=== PATIENT | female | born 1965 | race Hispanic/Latino ===

== ENCOUNTER 2020-10-18 08:24 | Inpatient (IN) | payer MEDICARE ==
[2020-10-18] MEDS: OMEGA-3 FATTY ACIDS/FISH OIL 1 GRAM CAP PO SCH ×2 (21:04→21:25)
[2020-10-18] MEDS: traZODone 50 MG TAB PO SCH ×2 (21:04→21:25)
[2020-10-18] MEDS ORDERED: MELATONIN 5 MG TAB PO PRN (22:00)
[2020-10-19 00:06] LABS: Basophils # (Auto) 0.1 K/mm3 (0.0-0.1); Eosinophils # (Auto) 0.3 K/mm3 (0.0-0.4); Hematocrit 41.5 % (30.3-42.9); Hemoglobin 14.3 gm/dl (10.1-14.3); Lymphocytes # (Auto) 3.4 K/mm3 (1.2-5.4); Lymphocytes % (Auto) 38.6 % (13.4-35.0); Mean Corpuscular HGB Conc 34 % (30-34); Mean Corpuscular Volume 90 fl (79-97); Monocytes # (Auto) 0.8 K/mm3 (0.0-0.8); Monocytes % (Auto) 8.7 % (0.0-7.3); Platelet Count 269 K/mm3 (140-440); Red Blood Count 4.61 M/mm3 (3.65-5.03)
[2020-10-19 01:16] LABS: Alanine Aminotransferase 9 units/L (7-56); Albumin 3.8 g/dL (3.9-5); BUN/Creatinine Ratio 22; Blood Urea Nitrogen 13 mg/dL (7-17); Calcium 9.1 mg/dL (8.4-10.2); HDL Cholesterol 40 mg/dL (40-59); Hemolysis Index 9; LDL Cholesterol,Direct 91 mg/dL (50-130)
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
[2020-10-19] MEDS: OMEGA-3 FATTY ACIDS/FISH OIL 1 GRAM CAP PO SCH ×3 (09:08→21:03)
[2020-10-19] MEDS: NICOTINE 14 MG/24 HR PATCH TD SCH (09:08)
[2020-10-19] MEDS: LORazepam 2 MG/ML VIAL IM SCH ×3 (10:17→17:32)
--- NOTE | 2020-10-19 11:30 | Consultation ---
History of Present Illness - Reason for Consult Consult date: 10/19/20 Medical management Requesting physician: MELLISSA MARTIN - History of Present Illness 54-year-old female with medical history significant for bipolar disorder, schizophrenia was admitted yesterday to [facility]. I have seen and evaluated the patient, patient was mute. I have asked questions but she does not answer. She was alert and looking at me. I could not get any history from her. Review of system could not be obtained because patient is mute. Past History Past Medical History: other (Could not obtain because the patient is mute) Past Surgical History: Other (Could not obtain because the patient is mute) Social history: other (Could not obtain because the patient is mute) Family history: other (Could not obtain because the patient is mute) Medications and Allergies Allergies Allergy/AdvReac Type Severity Reaction Status Date / Time Penicillins Allergy Unknown Verified 10/18/20 13:53 Home Medications Medication Instructions Recorded Confirmed Last Taken Type ALPRAZolam [Xanax TAB] 1 mg PO TID PRN 10/18/20 10/18/20 Unknown History Albuterol Sulfate [Proair 90 mcg IH Q4HR 10/18/20 10/18/20 Unknown History Digihaler] Cyclobenzaprine [Flexeril] 10 mg PO TID PRN 10/18/20 10/18/20 Unknown History FLUoxetine [PROzac] 20 mg PO QDAY 10/18/20 10/18/20 Unknown History Furosemide [Lasix TAB] 80 mg PO DAILY 10/18/20 10/18/20 Unknown History Ketorolac [Toradol] 10 mg PO Q6HR PRN 10/18/20 10/18/20 Unknown History Naproxen 500 mg PO BID 10/18/20 10/18/20 Unknown History Nicotine [Habitrol] 14 mg TRANSDERMA DAILY 10/18/20 10/18/20 Unknown History Omeprazole 40 mg PO DAILY 10/18/20 10/18/20 Unknown History Potassium Chloride [K-Dur] 10 meq PO QDAY 10/18/20 10/18/20 Unknown History Sucralfate [Carafate] 1 gm PO ACHS 10/18/20 10/18/20 Unknown History Zolpidem [Ambien] 10 mg PO HS 10/18/20 10/18/20 Unknown History Active Meds: Active Medications Fish Oil ([place]-3 Fatty Acids/Fish Oil 1 Gram Cap) 2,000 mg PO BID [facility] Last Admin: 10/19/20 09:09 Dose: Not Given Documented by: Lorazepam (Lorazepam 2 Mg/Ml Vial) 2 mg IM Q4HR [facility] Stop: 10/19/20 18:01 Last Admin: 10/19/20 10:17 Dose: 2 mg Documented by: Melatonin (Melatonin 5 Mg Tab) 5 mg PO QHS PRN PRN Reason: Sleep Nicotine (Nicotine 14 Mg/24 Hr Patch) 14 mg TD QDAY [facility] Last Admin: 10/19/20 09:08 Dose: Not Given Documented by: Trazodone HCl (Trazodone 50 Mg Tab) 50 mg PO QHS [facility] Last Admin: 10/18/20 21:25 Dose: Not Given Documented by: Review of Systems ROS unobtainable: due to mental status (patient is mute) Exam - Physical Exam Narrative exam: Not in cardiopulmonary distress. The patient appeared well nourished and normally developed. Vital signs as documented. Head exam is unremarkable. No scleral icterus . Neck is without jugular venous distension, thyromegaly, or carotid bruits. Lungs are clear to auscultation. Cardiac exam reveals regular rate and Rhythm. Abdominal exam reveals normal bowel sounds, nontender, no organomegaly. Extremities are nonedematous and both femoral and pedal pulses are normal. GUEST SERVICES ATTENDANT: Patient was alert but mute - Constitutional Vitals: Temp Pulse Resp BP Pulse Ox 98.4 F 111 H 16 125/81 98 10/19/20 07:19 10/19/20 07:19 10/19/20 07:19 10/19/20 07:19 10/19/20 07:19 Results - Labs CBC & Chem 7: 10/18/20 23:34 10/18/20 23:34 Labs: Abnormal lab results 10/18/20 10/18/20 Range/Units 23:34 23:34 RDW 13.0 L (13.2-15.2) % Lymph % (Auto) 38.6 H (13.4-35.0) % [place] % (Auto) 8.7 H (0.0-7.3) % Glucose 130 H (65-100) mg/dL Albumin 3.8 L (3.9-5) g/dL Assessment and Plan Patient admitted for bipolar disorder, schizophrenia Patient is mute I could not get any history -Her vital signs and labs are normal -Nothing to add from hospitalist point of view Thank you for the consult Please give me a call if there is any questions.
[2020-10-19] MEDS: traZODone 50 MG TAB PO SCH (21:03)
--- NOTE | 2020-10-20 08:42 | Progress Note ---
Subjective Date of service: 10/20/20 Principal diagnosis: (1) Schizophrenia with prominent negative symptoms Subjective Comment: Per Psych Nurse: This evening the patient is quiet. She answers when spoken to. he presents as mildly paranoid. She has been encouraged to take a shower but shows no interest in grooming. She ate 100% snack and asks for and received more later. She was compliant in taking Trazodone but refused fish oil stating it makes her sick. Patient voices wanting to go home. She states she lives with her boyfriend. Will continue to monitor patient for safety. Psych Progress Patient seen in room, alert to stimuli, states good morning but muted to other quuestions. REVIEW OF SYSTEMS ROS cannot be reliably obtained from the patient due to her negative schizophrenic symptoms MENTAL STATUS EXAMINATION General Appearance and Behavior: Age appropriate, good hygiene, wearing appropriate clothes, good eye contact, uncooperative with questioning. Cooperation: Withdrawn Psychomotor Behavior: unremarkable and within normal limits Mood: Neutral Affect and affective range: Flat Thought Process:N/A Thought Content: N/A Speech: Normal volume, Regular rate and rhythm Intellectual Functioning: N/A Suicidal Ideation: N/A l Homicidal Ideation: N/A Impulse Control: Impaired Insight and Judgment: Impaired Memory: impaired Attention: Normal, Orientation: Alert, Assessment and Plan - Psychiatric problem (1) Schizophrenia with prominent negative symptoms Current Visit: Yes Status: Acute f20.89 Treatment Plan Will start Geodon PO. Ativan BID. Patient admitted for inpatient psychiatric evaluation, medication adjustment and close monitoring The patient's behavior, mood, sleep and appetite will be closely monitored. Patient enrolled in individual and group therapeutic sessions and encouraged to attend. Patient provided with a safe and structured environment. Patient's physical health needs will be addressed by the Hospitalist. Hospitalist Consulted Labs including CBC, CMP, Lipid profile and Hemoglobin A1C levels ordered for baseline reference Social Assessment will be completed and the Computational Scientist will work with patient and family to ensure a suitable and safe disposition Medication adjustment will be made as clinically indicated Usual Wellness Adventism/Preservation: - Start Trazodone 50 mg po QHS & 50 mg po QHS PRN between 10 PM & 2 AM for insomnia - Start Melatonin 5 mg po QHS to promote circadian rhythm - Start [place]-3 for brain health, reduce impulsivity, and as adjunctive treatment for mood disorder, continue upon discharge given overall benefits. - Start B1 prophylaxis with 200 mg po for 5 days The patient agreed on the treatment plan, understood the risk, benefit, alternative treatment, potential consequence of no treatment, and gave informed consent. Initial Certification Inpatient psych services: I certify that the inpatient psychiatric services are required for treatment that could reasonably be expected to improve the patient's condition. Estimated days: 7 Post hospital care: primary care provider, psychiatric provider Assessment and Plan - Patient Problems (1) Schizophrenia with prominent negative symptoms Current Visit: Yes Status: Acute Medications and Allergies Allergies Allergy/AdvReac Type Severity Reaction Status Date / Time Penicillins Allergy Unknown Verified 10/18/20 13:53 sulfamethoxazole Allergy Unknown Verified 10/19/20 22:47 trimethoprim Allergy Unknown Verified 10/19/20 22:49 Home Medications Medication Instructions Recorded Confirmed Last Taken Type ALPRAZolam [Xanax TAB] 1 mg PO TID PRN 10/18/20 10/18/20 Unknown History Albuterol Sulfate [Proair 90 mcg IH Q4HR 10/18/20 10/18/20 Unknown History Digihaler] Cyclobenzaprine [Flexeril] 10 mg PO TID PRN 10/18/20 10/18/20 Unknown History FLUoxetine [PROzac] 20 mg PO QDAY 10/18/20 10/18/20 Unknown History Furosemide [Lasix TAB] 80 mg PO DAILY 10/18/20 10/18/20 Unknown History Ketorolac [Toradol] 10 mg PO Q6HR PRN 10/18/20 10/18/20 Unknown History Naproxen 500 mg PO BID 10/18/20 10/18/20 Unknown History Nicotine [Habitrol] 14 mg TRANSDERMA DAILY 10/18/20 10/18/20 Unknown History Omeprazole 40 mg PO DAILY 10/18/20 10/18/20 Unknown History Potassium Chloride [K-Dur] 10 meq PO QDAY 10/18/20 10/18/20 Unknown History Sucralfate [Carafate] 1 gm PO ACHS 10/18/20 10/18/20 Unknown History Zolpidem [Ambien] 10 mg PO HS 10/18/20 10/18/20 Unknown History Active Meds: Active Medications Fish Oil ([place]-3 Fatty Acids/Fish Oil 1 Gram Cap) 2,000 mg PO BID [facility] Last Admin: 10/19/20 21:03 Dose: Not Given Documented by: Fluoxetine HCl (Fluoxetine 20 Mg Cap) 20 mg PO QDAY [facility] Melatonin (Melatonin 5 Mg Tab) 5 mg PO QHS PRN PRN Reason: Sleep Nicotine (Nicotine 14 Mg/24 Hr Patch) 14 mg TD QDAY [facility] Last Admin: 10/19/20 09:08 Dose: Not Given Documented by: Trazodone HCl (Trazodone 50 Mg Tab) 50 mg PO QHS [facility] Last Admin: 10/19/20 21:03 Dose: 50 mg Documented by: Results - Results Labs/Vitals: Laboratory Last Values WBC 8.7 K/mm3 (4.5-11.0) 10/18/20 23:34 RBC 4.61 M/mm3 (3.65-5.03) 10/18/20 23:34 Hgb 14.3 gm/dl (10.1-14.3) 10/18/20 23:34 Hct 41.5 % (30.3-42.9) 10/18/20 23:34 MCV 90 fl (79-97) 10/18/20 23:34 MCH 31 pg (28-32) 10/18/20 23:34 MCHC 34 % (30-34) 10/18/20 23:34 RDW 13.0 % (13.2-15.2) L 10/18/20 23:34 Plt Count 269 K/mm3 (140-440) 10/18/20 23:34 Lymph % (Auto) 38.6 % (13.4-35.0) H 10/18/20 23:34 [place] % (Auto) 8.7 % (0.0-7.3) H 10/18/20 23:34 Eos % (Auto) 3.0 % (0.0-4.3) 10/18/20 23:34 Baso % (Auto) 1.0 % (0.0-1.8) 10/18/20 23:34 Lymph # (Auto) 3.4 K/mm3 (1.2-5.4) 10/18/20 23:34 [place] # (Auto) 0.8 K/mm3 (0.0-0.8) 10/18/20 23:34 Eos # (Auto) 0.3 K/mm3 (0.0-0.4) 10/18/20 23:34 Baso # (Auto) 0.1 K/mm3 (0.0-0.1) 10/18/20 23:34 Seg Neutrophils % 48.7 % (40.0-70.0) 10/18/20 23:34 Seg Neutrophils # 4.2 K/mm3 (1.8-7.7) 10/18/20 23:34 Sodium 143 mmol/L (137-145) 10/18/20 23:34 Potassium 3.6 mmol/L (3.6-5.0) 10/18/20 23:34 Chloride 105.0 mmol/L (98-107) 10/18/20 23:34 Carbon Dioxide 27 mmol/L (22-30) 10/18/20 23:34 Anion Gap 15 mmol/L 10/18/20 23:34 BUN 13 mg/dL (7-17) 10/18/20 23:34 Creatinine 0.6 mg/dL (0.6-1.2) 10/18/20 23:34 Estimated GFR > 60 ml/min 10/18/20 23:34 BUN/Creatinine Ratio 22 % 10/18/20 23:34 Glucose 130 mg/dL (65-100) H 10/18/20 23:34 Hemoglobin A1c 6.0 % (4-6) 10/18/20 23:34 Calcium 9.1 mg/dL (8.4-10.2) 10/18/20 23:34 Total Bilirubin 0.20 mg/dL (0.1-1.2) 10/18/20 23:34 AST 10 units/L (5-40) 10/18/20 23:34 ALT 9 units/L (7-56) 10/18/20 23:34 Alkaline Phosphatase 93 units/L (35-129) 10/18/20 23:34 Total Protein 6.7 g/dL (6.3-8.2) 10/18/20 23:34 Albumin 3.8 g/dL (3.9-5) L 10/18/20 23:34 Albumin/Globulin Ratio 1.3 % 10/18/20 23:34 Triglycerides 103 mg/dL (2-149) 10/18/20 23:34 Cholesterol 140 mg/dL (50-199) 10/18/20 23:34 LDL Cholesterol Direct 91 mg/dL (50-130) 10/18/20 23:34 HDL Cholesterol 40 mg/dL (40-59) 10/18/20 23:34 Cholesterol/HDL Ratio 3.50 % 10/18/20 23:34 TSH 1.550 mlU/mL (0.270-4.200) 10/18/20 23:34 Last Vital Signs Temp 98.8 F 10/20/20 07:24 Pulse 104 H 10/20/20 07:24 Resp 16 10/20/20 07:24 BP 108/82 10/20/20 07:24 Pulse Ox 92 10/20/20 07:24
[2020-10-20] MEDS: NICOTINE 14 MG/24 HR PATCH TD SCH (09:17)
[2020-10-20] MEDS: FLUoxetine 20 MG CAP PO SCH (09:23)
[2020-10-20] MEDS: OMEGA-3 FATTY ACIDS/FISH OIL 1 GRAM CAP PO SCH ×3 (09:30→21:32)
[2020-10-20] MEDS: ZIPRASIDONE 20 MG CAP PO SCH ×3 (09:51→21:32)
[2020-10-20] MEDS: LORazepam 0.5 MG TAB PO SCH ×3 (09:51→21:31)
[2020-10-20] MEDS ORDERED: NICOTINE 14 MG/24 HR PATCH TD SCH (10:00)
[2020-10-20] MEDS: traZODone 50 MG TAB PO SCH ×2 (21:04→21:33)
--- NOTE | 2020-10-21 08:39 | Progress Note ---
Subjective Date of service: 10/21/20 Principal diagnosis: (1) Schizophrenia with prominent negative symptoms Subjective Comment: Per nurse note: Pt received in the activity room eating snack. She did not pay attention to the telegraphic typewriter repairer and would not respond to questions. Nsg. staff observing informed telegraphic typewriter repairer that pt rarely talk. As telegraphic typewriter repairer walking out of the day room, she started coming behind saying, "I talk, I talk." She endorsed taking her medication. Denies pain, SI or HI. I attempted to interview the patient, but I could not engage her. She was initially lying down and just staring at me with this blank stare as I spoke. She then got up and sat on side of the bed. The patient still did nothing but started at me. The patient appeared to not understand what I was saying. She just stares at me as I leave out the room. I later come back to speak with the patient after assessing another patient. She is still sitting on side of the bed. She stares at me as I'm speaking and does not respond. REVIEW OF SYSTEMS ROS cannot be reliably obtained from the patient due to her negative schizophrenic symptoms MENTAL STATUS EXAMINATION General Appearance and Behavior: Age appropriate, good hygiene, wearing appropriate clothes, good eye contact, uncooperative with questioning. Cooperation: Withdrawn Psychomotor Behavior: unremarkable and within normal limits Mood: Affect and affective range: Flat Thought Process:N/A Thought Content: N/A Speech: Normal volume, Regular rate and rhythm Intellectual Functioning: N/A Suicidal Ideation: N/A l Homicidal Ideation: N/A Impulse Control: Impaired Insight and Judgment: Impaired Memory: impaired Attention: Normal, Orientation: Alert, Assessment and Plan (1) Schizophrenia with prominent negative symptoms Current Visit: Yes Status: Acute f20.89 Treatment Plan Patient admitted for inpatient psychiatric evaluation, medication adjustment and close monitoring The patient's behavior, mood, sleep and appetite will be closely monitored. Patient enrolled in individual and group therapeutic sessions and encouraged to attend. Patient provided with a safe and structured environment. Patient's physical health needs will be addressed by the Hospitalist. Hospitalist Consulted Labs including CBC, CMP, Lipid profile and Hemoglobin A1C levels ordered for baseline reference Social Assessment will be completed and the Print Cutter will work with patient and family to ensure a suitable and safe disposition Medication adjustment will be made as clinically indicated Start Depakote DR 125mg po BID Usual Wellness Restorationism/Preservation: - Start Trazodone 50 mg po QHS & 50 mg po QHS PRN between 10 PM & 2 AM for insomnia - Start Melatonin 5 mg po QHS to promote circadian rhythm - Start [place]-3 for brain health, reduce impulsivity, and as adjunctive treatment for mood disorder, continue upon discharge given overall benefits. - Start B1 prophylaxis with 200 mg po for 5 days The patient agreed on the treatment plan, understood the risk, benefit, alternative treatment, potential consequence of no treatment, and gave informed consent. Estimated days: 5 Post hospital care: primary care provider, psychiatric provider Medications and Allergies Allergies Allergy/AdvReac Type Severity Reaction Status Date / Time Penicillins Allergy Unknown Verified 10/18/20 13:53 sulfamethoxazole Allergy Unknown Verified 10/19/20 22:47 trimethoprim Allergy Unknown Verified 10/19/20 22:49 Home Medications Medication Instructions Recorded Confirmed Last Taken Type ALPRAZolam [Xanax TAB] 1 mg PO TID PRN 10/18/20 10/18/20 Unknown History Albuterol Sulfate [Proair 90 mcg IH Q4HR 10/18/20 10/18/20 Unknown History Digihaler] Cyclobenzaprine [Flexeril] 10 mg PO TID PRN 10/18/20 10/18/20 Unknown History FLUoxetine [PROzac] 20 mg PO QDAY 10/18/20 10/18/20 Unknown History Furosemide [Lasix TAB] 80 mg PO DAILY 10/18/20 10/18/20 Unknown History Ketorolac [Toradol] 10 mg PO Q6HR PRN 10/18/20 10/18/20 Unknown History Naproxen 500 mg PO BID 10/18/20 10/18/20 Unknown History Nicotine [Habitrol] 14 mg TRANSDERMA DAILY 10/18/20 10/18/20 Unknown History Omeprazole 40 mg PO DAILY 10/18/20 10/18/20 Unknown History Potassium Chloride [K-Dur] 10 meq PO QDAY 10/18/20 10/18/20 Unknown History Sucralfate [Carafate] 1 gm PO ACHS 10/18/20 10/18/20 Unknown History Zolpidem [Ambien] 10 mg PO HS 10/18/20 10/18/20 Unknown History Active Meds: Active Medications Fish Oil ([place]-3 Fatty Acids/Fish Oil 1 Gram Cap) 2,000 mg PO BID [facility] Last Admin: 10/20/20 21:32 Dose: Not Given Documented by: Fluoxetine HCl (Fluoxetine 20 Mg Cap) 20 mg PO QDAY [facility] Last Admin: 10/20/20 09:23 Dose: 20 mg Documented by: Lorazepam (Lorazepam 0.5 Mg Tab) 0.5 mg PO BID [facility] Last Admin: 10/20/20 21:31 Dose: Not Given Documented by: Melatonin (Melatonin 5 Mg Tab) 5 mg PO QHS PRN PRN Reason: Sleep Nicotine (Nicotine 14 Mg/24 Hr Patch) 14 mg TD QDAY [facility] Last Admin: 10/20/20 09:17 Dose: 14 mg Documented by: Trazodone HCl (Trazodone 50 Mg Tab) 50 mg PO QHS [facility] Last Admin: 10/20/20 21:33 Dose: Not Given Documented by: Ziprasidone (Ziprasidone 20 Mg Cap) 20 mg PO BID [facility] Last Admin: 10/20/20 21:32 Dose: Not Given Documented by: Results - Results Labs/Vitals: Laboratory Last Values WBC 8.7 K/mm3 (4.5-11.0) 10/18/20 23:34 RBC 4.61 M/mm3 (3.65-5.03) 10/18/20 23:34 Hgb 14.3 gm/dl (10.1-14.3) 10/18/20 23:34 Hct 41.5 % (30.3-42.9) 10/18/20 23:34 MCV 90 fl (79-97) 10/18/20 23:34 MCH 31 pg (28-32) 10/18/20 23:34 MCHC 34 % (30-34) 10/18/20 23:34 RDW 13.0 % (13.2-15.2) L 10/18/20 23:34 Plt Count 269 K/mm3 (140-440) 10/18/20 23:34 Lymph % (Auto) 38.6 % (13.4-35.0) H 10/18/20 23:34 [place] % (Auto) 8.7 % (0.0-7.3) H 10/18/20 23:34 Eos % (Auto) 3.0 % (0.0-4.3) 10/18/20 23:34 Baso % (Auto) 1.0 % (0.0-1.8) 10/18/20 23:34 Lymph # (Auto) 3.4 K/mm3 (1.2-5.4) 10/18/20 23:34 [place] # (Auto) 0.8 K/mm3 (0.0-0.8) 10/18/20 23:34 Eos # (Auto) 0.3 K/mm3 (0.0-0.4) 10/18/20 23:34 Baso # (Auto) 0.1 K/mm3 (0.0-0.1) 10/18/20 23:34 Seg Neutrophils % 48.7 % (40.0-70.0) 10/18/20 23:34 Seg Neutrophils # 4.2 K/mm3 (1.8-7.7) 10/18/20 23:34 Sodium 143 mmol/L (137-145) 10/18/20 23:34 Potassium 3.6 mmol/L (3.6-5.0) 10/18/20 23:34 Chloride 105.0 mmol/L (98-107) 10/18/20 23:34 Carbon Dioxide 27 mmol/L (22-30) 10/18/20 23:34 Anion Gap 15 mmol/L 10/18/20 23:34 BUN 13 mg/dL (7-17) 10/18/20 23:34 Creatinine 0.6 mg/dL (0.6-1.2) 10/18/20 23:34 Estimated GFR > 60 ml/min 10/18/20 23:34 BUN/Creatinine Ratio 22 % 10/18/20 23:34 Glucose 130 mg/dL (65-100) H 10/18/20 23:34 Hemoglobin A1c 6.0 % (4-6) 10/18/20 23:34 Calcium 9.1 mg/dL (8.4-10.2) 10/18/20 23:34 Total Bilirubin 0.20 mg/dL (0.1-1.2) 10/18/20 23:34 AST 10 units/L (5-40) 10/18/20 23:34 ALT 9 units/L (7-56) 10/18/20 23:34 Alkaline Phosphatase 93 units/L (35-129) 10/18/20 23:34 Total Protein 6.7 g/dL (6.3-8.2) 10/18/20 23:34 Albumin 3.8 g/dL (3.9-5) L 10/18/20 23:34 Albumin/Globulin Ratio 1.3 % 10/18/20 23:34 Triglycerides 103 mg/dL (2-149) 10/18/20 23:34 Cholesterol 140 mg/dL (50-199) 10/18/20 23:34 LDL Cholesterol Direct 91 mg/dL (50-130) 10/18/20 23:34 HDL Cholesterol 40 mg/dL (40-59) 10/18/20 23:34 Cholesterol/HDL Ratio 3.50 % 10/18/20 23:34 TSH 1.550 mlU/mL (0.270-4.200) 10/18/20 23:34 Last Vital Signs Temp 98.0 F 10/21/20 08:31 Pulse 82 10/21/20 08:31 Resp 16 10/21/20 08:31 BP 95/56 10/21/20 08:31 Pulse Ox 95 10/21/20 08:31
[2020-10-21] MEDS: FLUoxetine 20 MG CAP PO SCH (09:05)
[2020-10-21] MEDS: LORazepam 0.5 MG TAB PO SCH ×2 (09:05→21:14)
[2020-10-21] MEDS: ZIPRASIDONE 20 MG CAP PO SCH ×2 (09:05→21:14)
[2020-10-21] MEDS: OMEGA-3 FATTY ACIDS/FISH OIL 1 GRAM CAP PO SCH ×2 (09:05→21:14)
[2020-10-21] MEDS: NICOTINE 14 MG/24 HR PATCH TD SCH (09:05)
[2020-10-21] MEDS: DIVALPROEX DR 125 MG TAB PO SCH ×2 (09:05→21:14)
[2020-10-21] MEDS: traZODone 50 MG TAB PO SCH (21:14)
--- NOTE | 2020-10-22 08:15 | Progress Note ---
Subjective Date of service: 10/22/20 Principal diagnosis: (1) Schizophrenia with prominent negative symptoms Subjective Comment: Per nurse note: Pt received in the day room sitting quietly. Muted and wouldn't answer questions or initiate conversation. I attempted to interview the patient, she is selectively mute and would not speak to me. She just started. She did however, follow me with her eyes. REVIEW OF SYSTEMS ROS cannot be reliably obtained from the patient due to her negative schizophrenic symptoms MENTAL STATUS EXAMINATION General Appearance and Behavior: Age appropriate, good hygiene, wearing appropriate clothes, good eye contact, uncooperative with questioning. Cooperation: Withdrawn Psychomotor Behavior: unremarkable and within normal limits Mood: Affect and affective range: Flat Thought Process:N/A Thought Content: N/A Speech: Normal volume, Regular rate and rhythm Intellectual Functioning: N/A Suicidal Ideation: N/A l Homicidal Ideation: N/A Impulse Control: Impaired Insight and Judgment: Impaired Memory: impaired Attention: Normal, Orientation: Alert, Assessment and Plan (1) Schizophrenia with prominent negative symptoms Current Visit: Yes Status: Acute f20.89 Treatment Plan Patient admitted for inpatient psychiatric evaluation, medication adjustment and close monitoring The patient's behavior, mood, sleep and appetite will be closely monitored. Patient enrolled in individual and group therapeutic sessions and encouraged to attend. Patient provided with a safe and structured environment. Patient's physical health needs will be addressed by the Hospitalist. Hospitalist Consulted Labs including CBC, CMP, Lipid profile and Hemoglobin A1C levels ordered for baseline reference Social Assessment will be completed and the Air Analyst will work with patient and family to ensure a suitable and safe disposition Medication adjustment will be made as clinically indicated Start Depakote DR 125mg po BID yesterday No changes today Usual Wellness Scientologist/Preservation: - Start Trazodone 50 mg po QHS & 50 mg po QHS PRN between 10 PM & 2 AM for ins omnia - Start Melatonin 5 mg po QHS to promote circadian rhythm - Start [place]-3 for brain health, reduce impulsivity, and as adjunctive treatment for mood disorder, continue upon discharge given overall benefits. - Start B1 prophylaxis with 200 mg po for 5 days The patient agreed on the treatment plan, understood the risk, benefit, alternative treatment, potential consequence of no treatment, and gave informed consent. Estimated days: 3 Post hospital care: primary care provider, psychiatric provider Medications and Allergies Allergies Allergy/AdvReac Type Severity Reaction Status Date / Time Penicillins Allergy Unknown Verified 10/18/20 13:53 sulfamethoxazole Allergy Unknown Verified 10/19/20 22:47 trimethoprim Allergy Unknown Verified 10/19/20 22:49 Home Medications Medication Instructions Recorded Confirmed Last Taken Type ALPRAZolam [Xanax TAB] 1 mg PO TID PRN 10/18/20 10/18/20 Unknown History Albuterol Sulfate [Proair 90 mcg IH Q4HR 10/18/20 10/18/20 Unknown History Digihaler] Cyclobenzaprine [Flexeril] 10 mg PO TID PRN 10/18/20 10/18/20 Unknown History FLUoxetine [PROzac] 20 mg PO QDAY 10/18/20 10/18/20 Unknown History Furosemide [Lasix TAB] 80 mg PO DAILY 10/18/20 10/18/20 Unknown History Ketorolac [Toradol] 10 mg PO Q6HR PRN 10/18/20 10/18/20 Unknown History Naproxen 500 mg PO BID 10/18/20 10/18/20 Unknown History Nicotine [Habitrol] 14 mg TRANSDERMA DAILY 10/18/20 10/18/20 Unknown History Omeprazole 40 mg PO DAILY 10/18/20 10/18/20 Unknown History Potassium Chloride [K-Dur] 10 meq PO QDAY 10/18/20 10/18/20 Unknown History Sucralfate [Carafate] 1 gm PO ACHS 10/18/20 10/18/20 Unknown History Zolpidem [Ambien] 10 mg PO HS 10/18/20 10/18/20 Unknown History Active Meds: Active Medications Divalproex Sodium (Divalproex Dr 125 Mg Tab) 125 mg PO BID [facility] Last Admin: 10/21/20 21:14 Dose: Not Given Documented by: Fish Oil ([place]-3 Fatty Acids/Fish Oil 1 Gram Cap) 2,000 mg PO BID [facility] Last Admin: 10/21/20 21:14 Dose: Not Given Documented by: Fluoxetine HCl (Fluoxetine 20 Mg Cap) 20 mg PO QDAY [facility] Last Admin: 10/21/20 09:05 Dose: 20 mg Documented by: Lorazepam (Lorazepam 0.5 Mg Tab) 0.5 mg PO BID [facility] Last Admin: 10/21/20 21:14 Dose: Not Given Documented by: Melatonin (Melatonin 5 Mg Tab) 5 mg PO QHS PRN PRN Reason: Sleep Nicotine (Nicotine 14 Mg/24 Hr Patch) 14 mg TD QDAY [facility] Last Admin: 10/21/20 09:05 Dose: 14 mg Documented by: Trazodone HCl (Trazodone 50 Mg Tab) 50 mg PO QHS [facility] Last Admin: 10/21/20 21:14 Dose: Not Given Documented by: Ziprasidone (Ziprasidone 20 Mg Cap) 20 mg PO BID [facility] Last Admin: 10/21/20 21:14 Dose: Not Given Documented by: Results - Results Labs/Vitals: Laboratory Last Values WBC 8.7 K/mm3 (4.5-11.0) 10/18/20 23:34 RBC 4.61 M/mm3 (3.65-5.03) 10/18/20 23:34 Hgb 14.3 gm/dl (10.1-14.3) 10/18/20 23:34 Hct 41.5 % (30.3-42.9) 10/18/20 23:34 MCV 90 fl (79-97) 10/18/20 23:34 MCH 31 pg (28-32) 10/18/20 23:34 MCHC 34 % (30-34) 10/18/20 23:34 RDW 13.0 % (13.2-15.2) L 10/18/20 23:34 Plt Count 269 K/mm3 (140-440) 10/18/20 23:34 Lymph % (Auto) 38.6 % (13.4-35.0) H 10/18/20 23:34 [place] % (Auto) 8.7 % (0.0-7.3) H 10/18/20 23:34 Eos % (Auto) 3.0 % (0.0-4.3) 10/18/20 23:34 Baso % (Auto) 1.0 % (0.0-1.8) 10/18/20 23:34 Lymph # (Auto) 3.4 K/mm3 (1.2-5.4) 10/18/20 23:34 [place] # (Auto) 0.8 K/mm3 (0.0-0.8) 10/18/20 23:34 Eos # (Auto) 0.3 K/mm3 (0.0-0.4) 10/18/20 23:34 Baso # (Auto) 0.1 K/mm3 (0.0-0.1) 10/18/20 23:34 Seg Neutrophils % 48.7 % (40.0-70.0) 10/18/20 23:34 Seg Neutrophils # 4.2 K/mm3 (1.8-7.7) 10/18/20 23:34 Sodium 143 mmol/L (137-145) 10/18/20 23:34 Potassium 3.6 mmol/L (3.6-5.0) 10/18/20 23:34 Chloride 105.0 mmol/L (98-107) 10/18/20 23:34 Carbon Dioxide 27 mmol/L (22-30) 10/18/20 23:34 Anion Gap 15 mmol/L 10/18/20 23:34 BUN 13 mg/dL (7-17) 10/18/20 23:34 Creatinine 0.6 mg/dL (0.6-1.2) 10/18/20 23:34 Estimated GFR > 60 ml/min 10/18/20 23:34 BUN/Creatinine Ratio 22 % 10/18/20 23:34 Glucose 130 mg/dL (65-100) H 10/18/20 23:34 Hemoglobin A1c 6.0 % (4-6) 10/18/20 23:34 Calcium 9.1 mg/dL (8.4-10.2) 10/18/20 23:34 Total Bilirubin 0.20 mg/dL (0.1-1.2) 10/18/20 23:34 AST 10 units/L (5-40) 10/18/20 23:34 ALT 9 units/L (7-56) 10/18/20 23:34 Alkaline Phosphatase 93 units/L (35-129) 10/18/20 23:34 Total Protein 6.7 g/dL (6.3-8.2) 10/18/20 23:34 Albumin 3.8 g/dL (3.9-5) L 10/18/20 23:34 Albumin/Globulin Ratio 1.3 % 10/18/20 23:34 Triglycerides 103 mg/dL (2-149) 10/18/20 23:34 Cholesterol 140 mg/dL (50-199) 10/18/20 23:34 LDL Cholesterol Direct 91 mg/dL (50-130) 10/18/20 23:34 HDL Cholesterol 40 mg/dL (40-59) 10/18/20 23:34 Cholesterol/HDL Ratio 3.50 % 10/18/20 23:34 TSH 1.550 mlU/mL (0.270-4.200) 10/18/20 23:34 Last Vital Signs Temp 98.4 F 10/21/20 19:33 Pulse 85 10/21/20 19:33 Resp 18 10/21/20 19:33 BP 136/93 10/21/20 19:33 Pulse Ox 96 10/21/20 19:33
[2020-10-22] MEDS: DIVALPROEX DR 125 MG TAB PO SCH ×2 (09:19→21:00)
[2020-10-22] MEDS: OMEGA-3 FATTY ACIDS/FISH OIL 1 GRAM CAP PO SCH ×2 (09:19→21:01)
[2020-10-22] MEDS: ZIPRASIDONE 20 MG CAP PO SCH ×2 (09:20→21:00)
[2020-10-22] MEDS: FLUoxetine 20 MG CAP PO SCH (09:21)
[2020-10-22] MEDS: NICOTINE 14 MG/24 HR PATCH TD SCH (09:22)
[2020-10-22] MEDS: LORazepam 0.5 MG TAB PO SCH ×2 (09:29→21:00)
[2020-10-22] MEDS: traZODone 50 MG TAB PO SCH (21:00)
[2020-10-23] MEDS: OMEGA-3 FATTY ACIDS/FISH OIL 1 GRAM CAP PO SCH ×2 (09:31→21:23)
[2020-10-23] MEDS: DIVALPROEX DR 125 MG TAB PO SCH ×2 (09:32→21:23)
[2020-10-23] MEDS: FLUoxetine 20 MG CAP PO SCH (09:32)
[2020-10-23] MEDS: LORazepam 0.5 MG TAB PO SCH ×2 (09:32→21:23)
[2020-10-23] MEDS: ZIPRASIDONE 20 MG CAP PO SCH ×2 (09:32→21:23)
[2020-10-23] MEDS: NICOTINE 14 MG/24 HR PATCH TD SCH (09:33)
--- NOTE | 2020-10-23 09:47 | Progress Note ---
Subjective Date of service: 10/23/20 Principal diagnosis: (1) Schizophrenia with prominent negative symptoms Subjective Comment: The patient is actually more talkative today. She says she's feeling "okay." She denies SI/HI or hallucinations of any kind. When asking the patient did she sleep good, she just started at me. She said "I'm ready to go home" when asked if she was feeling better than yesterday. As I'm talking to family on the phone, the patient actually comes up to me and attempts to initiate conversation, which is the most she's spoken for me in the last three days. REVIEW OF SYSTEMS ROS cannot be reliably obtained from the patient due to her negative schizophrenic symptoms MENTAL STATUS EXAMINATION General Appearance and Behavior: Age appropriate, good hygiene, wearing appropriate clothes, good eye contact, uncooperative with questioning. Cooperation: Withdrawn Psychomotor Behavior: unremarkable and within normal limits Mood: Affect and affective range: Flat Thought Process:N/A Thought Content: N/A Speech: Normal volume, Regular rate and rhythm Intellectual Functioning: N/A Suicidal Ideation: N/A l Homicidal Ideation: N/A Impulse Control: Impaired Insight and Judgment: Impaired Memory: impaired Attention: Normal, Orientation: Alert, Assessment and Plan (1) Schizophrenia with prominent negative symptoms Current Visit: Yes Status: Acute f20.89 Treatment Plan Patient admitted for inpatient psychiatric evaluation, medication adjustment and close monitoring The patient's behavior, mood, sleep and appetite will be closely monitored. Patient enrolled in individual and group therapeutic sessions and encouraged to attend. Patient provided with a safe and structured environment. Patient's physical health needs will be addressed by the Hospitalist. Hospitalist Consulted Labs including CBC, CMP, Lipid profile and Hemoglobin A1C levels ordered for baseline reference Social Assessment will be completed and the Metalsmith Apprentice will work with patient and family to ensure a suitable and safe disposition Medication adjustment will be made as clinically indicated No changes today Usual Wellness Oriental Orthodox/Preservation: - Start Trazodone 50 mg po QHS & 50 mg po QHS PRN between 10 PM & 2 AM for insomnia - Start Melatonin 5 mg po QHS to promote circadian rhythm - Start [place]-3 for brain health, reduce impulsivity, and as adjunctive treatment for mood disorder, continue upon discharge given overall benefits. - Start B1 prophylaxis with 200 mg po for 5 days The patient agreed on the treatment plan, understood the risk, benefit, alternative treatment, potential consequence of no treatment, and gave informed consent. Estimated days: 3 Post hospital care: primary care provider, psychiatric provider Medications and Allergies Allergies Allergy/AdvReac Type Severity Reaction Status Date / Time Penicillins Allergy Unknown Verified 10/18/20 13:53 sulfamethoxazole Allergy Unknown Verified 10/19/20 22:47 trimethoprim Allergy Unknown Verified 10/19/20 22:49 Home Medications Medication Instructions Recorded Confirmed Last Taken Type ALPRAZolam [Xanax TAB] 1 mg PO TID PRN 10/18/20 10/18/20 Unknown History Albuterol Sulfate [Proair 90 mcg IH Q4HR 10/18/20 10/18/20 Unknown History Digihaler] Cyclobenzaprine [Flexeril] 10 mg PO TID PRN 10/18/20 10/18/20 Unknown History FLUoxetine [PROzac] 20 mg PO QDAY 10/18/20 10/18/20 Unknown History Furosemide [Lasix TAB] 80 mg PO DAILY 10/18/20 10/18/20 Unknown History Ketorolac [Toradol] 10 mg PO Q6HR PRN 10/18/20 10/18/20 Unknown History Naproxen 500 mg PO BID 10/18/20 10/18/20 Unknown History Nicotine [Habitrol] 14 mg TRANSDERMA DAILY 10/18/20 10/18/20 Unknown History Omeprazole 40 mg PO DAILY 10/18/20 10/18/20 Unknown History Potassium Chloride [K-Dur] 10 meq PO QDAY 10/18/20 10/18/20 Unknown History Sucralfate [Carafate] 1 gm PO ACHS 10/18/20 10/18/20 Unknown History Zolpidem [Ambien] 10 mg PO HS 10/18/20 10/18/20 Unknown History Active Meds: Active Medications Divalproex Sodium (Divalproex Dr 125 Mg Tab) 125 mg PO BID [facility] Last Admin: 10/23/20 09:32 Dose: 125 mg Documented by: Fish Oil ([place]-3 Fatty Acids/Fish Oil 1 Gram Cap) 2,000 mg PO BID [facility] Last Admin: 10/23/20 09:31 Dose: 2,000 mg Documented by: Fluoxetine HCl (Fluoxetine 20 Mg Cap) 20 mg PO QDAY [facility] Last Admin: 10/23/20 09:32 Dose: 20 mg Documented by: Lorazepam (Lorazepam 0.5 Mg Tab) 0.5 mg PO BID [facility] Last Admin: 10/23/20 09:32 Dose: 0.5 mg Documented by: Melatonin (Melatonin 5 Mg Tab) 5 mg PO QHS PRN PRN Reason: Sleep Last Admin: 10/22/20 20:33 Dose: 5 mg Documented by: Nicotine (Nicotine 14 Mg/24 Hr Patch) 14 mg TD QDAY [facility] Last Admin: 10/23/20 09:33 Dose: Not Given Documented by: Trazodone HCl (Trazodone 50 Mg Tab) 50 mg PO QHS [facility] Last Admin: 10/22/20 21:00 Dose: 50 mg Documented by: Ziprasidone (Ziprasidone 20 Mg Cap) 20 mg PO BID [facility] Last Admin: 10/23/20 09:32 Dose: 20 mg Documented by: Results - Results Labs/Vitals: Laboratory Last Values WBC 8.7 K/mm3 (4.5-11.0) 10/18/20 23:34 RBC 4.61 M/mm3 (3.65-5.03) 10/18/20 23:34 Hgb 14.3 gm/dl (10.1-14.3) 10/18/20 23:34 Hct 41.5 % (30.3-42.9) 10/18/20 23:34 MCV 90 fl (79-97) 10/18/20 23:34 MCH 31 pg (28-32) 10/18/20 23:34 MCHC 34 % (30-34) 10/18/20 23:34 RDW 13.0 % (13.2-15.2) L 10/18/20 23:34 Plt Count 269 K/mm3 (140-440) 10/18/20 23:34 Lymph % (Auto) 38.6 % (13.4-35.0) H 10/18/20 23:34 [place] % (Auto) 8.7 % (0.0-7.3) H 10/18/20 23:34 Eos % (Auto) 3.0 % (0.0-4.3) 10/18/20 23:34 Baso % (Auto) 1.0 % (0.0-1.8) 10/18/20 23:34 Lymph # (Auto) 3.4 K/mm3 (1.2-5.4) 10/18/20 23:34 [place] # (Auto) 0.8 K/mm3 (0.0-0.8) 10/18/20 23:34 Eos # (Auto) 0.3 K/mm3 (0.0-0.4) 10/18/20 23:34 Baso # (Auto) 0.1 K/mm3 (0.0-0.1) 10/18/20 23:34 Seg Neutrophils % 48.7 % (40.0-70.0) 10/18/20 23:34 Seg Neutrophils # 4.2 K/mm3 (1.8-7.7) 10/18/20 23:34 Sodium 143 mmol/L (137-145) 10/18/20 23:34 Potassium 3.6 mmol/L (3.6-5.0) 10/18/20 23:34 Chloride 105.0 mmol/L (98-107) 10/18/20 23:34 Carbon Dioxide 27 mmol/L (22-30) 10/18/20 23:34 Anion Gap 15 mmol/L 10/18/20 23:34 BUN 13 mg/dL (7-17) 10/18/20 23:34 Creatinine 0.6 mg/dL (0.6-1.2) 10/18/20 23:34 Estimated GFR > 60 ml/min 10/18/20 23:34 BUN/Creatinine Ratio 22 % 10/18/20 23:34 Glucose 130 mg/dL (65-100) H 10/18/20 23:34 Hemoglobin A1c 6.0 % (4-6) 10/18/20 23:34 Calcium 9.1 mg/dL (8.4-10.2) 10/18/20 23:34 Total Bilirubin 0.20 mg/dL (0.1-1.2) 10/18/20 23:34 AST 10 units/L (5-40) 10/18/20 23:34 ALT 9 units/L (7-56) 10/18/20 23:34 Alkaline Phosphatase 93 units/L (35-129) 10/18/20 23:34 Total Protein 6.7 g/dL (6.3-8.2) 10/18/20 23:34 Albumin 3.8 g/dL (3.9-5) L 10/18/20 23:34 Albumin/Globulin Ratio 1.3 % 10/18/20 23:34 Triglycerides 103 mg/dL (2-149) 10/18/20 23:34 Cholesterol 140 mg/dL (50-199) 10/18/20 23:34 LDL Cholesterol Direct 91 mg/dL (50-130) 10/18/20 23:34 HDL Cholesterol 40 mg/dL (40-59) 10/18/20 23:34 Cholesterol/HDL Ratio 3.50 % 10/18/20 23:34 TSH 1.550 mlU/mL (0.270-4.200) 10/18/20 23:34 Last Vital Signs Temp 97.3 F L 10/22/20 22:00 Pulse 80 10/22/20 22:00 Resp 15 10/22/20 22:00 BP 116/82 10/22/20 22:00 Pulse Ox 97 10/22/20 22:00
[2020-10-23] MEDS: traZODone 50 MG TAB PO SCH (21:23)
[2020-10-24] MEDS: ZIPRASIDONE 20 MG CAP PO SCH ×2 (09:17→22:17)
[2020-10-24] MEDS: NICOTINE 14 MG/24 HR PATCH TD SCH (09:17)
[2020-10-24] MEDS: FLUoxetine 20 MG CAP PO SCH (09:17)
[2020-10-24] MEDS: DIVALPROEX DR 125 MG TAB PO SCH ×2 (09:17→22:18)
[2020-10-24] MEDS: OMEGA-3 FATTY ACIDS/FISH OIL 1 GRAM CAP PO SCH ×2 (09:17→22:16)
[2020-10-24] MEDS: LORazepam 0.5 MG TAB PO SCH ×2 (09:17→22:18)
--- NOTE | 2020-10-24 10:05 | Progress Note ---
Subjective Date of service: 10/24/20 Principal diagnosis: (1) Schizophrenia with prominent negative symptoms Subjective Comment: The patient is asking if she can go home. She is talkative but at times has period of muteness. She says she "doesn't know" when asking why she sometimes doesn't respond. She verbalizes feeling better. The patient denies SI/HI or hallucinations of any kind Reason for continued inpatient treatment: SW is trying to contact family to make sure the patient can discharge safely. REVIEW OF SYSTEMS Constitutional: Negative for weight loss ENT: Negative for stridor Respiratory: Negative for cough or hemoptysis All other systems reviewed and are negative MENTAL STATUS EXAMINATION General Appearance and Behavior: Age appropriate, good hygiene, wearing appropriate clothes, good eye contact, cooperative with questioning. Cooperation: Withdrawn Psychomotor Behavior: unremarkable and within normal limits Mood: "better" Affect and affective range: Flat Thought Process: Circumstantial Thought Content: None Speech: Normal volume, Regular rate and rhythm Intellectual Functioning: N/A Suicidal Ideation: Denies Homicidal Ideation: Denies Impulse Control: Impaired Insight and Judgment: Limited Memory: Limited Attention: Normal Orientation: Alert, Assessment and Plan (1) Schizophrenia with prominent negative symptoms Current Visit: Yes Status: Acute f20.89 Treatment Plan Patient admitted for inpatient psychiatric evaluation, medication adjustment and close monitoring The patient's behavior, mood, sleep and appetite will be closely monitored. Patient enrolled in individual and group therapeutic sessions and encouraged to attend. Patient provided with a safe and structured environment. Patient's physical health needs will be addressed by the Hospitalist. Hospitalist Consulted Labs including CBC, CMP, Lipid profile and Hemoglobin A1C levels ordered for baseline reference Social Assessment will be completed and the Payroll Administrative Assistant will work with patient and family to ensure a suitable and safe disposition Medication adjustment will be made as clinically indicated No changes today Usual Wellness Voodoo/Preservation: - Start Trazodone 50 mg po QHS & 50 mg po QHS PRN between 10 PM & 2 AM for insomnia - Start Melatonin 5 mg po QHS to promote circadian rhythm - Start [place]-3 for brain health, reduce impulsivity, and as adjunctive treatment for mood disorder, continue upon discharge given overall benefits. - Start B1 prophylaxis with 200 mg po for 5 days The patient agreed on the treatment plan, understood the risk, benefit, alternative treatment, potential consequence of no treatment, and gave informed consent. Estimated days: 3 Post hospital care: primary care provider, psychiatric provider Medications and Allergies Allergies Allergy/AdvReac Type Severity Reaction Status Date / Time Penicillins Allergy Unknown Verified 10/18/20 13:53 sulfamethoxazole Allergy Unknown Verified 10/19/20 22:47 trimethoprim Allergy Unknown Verified 10/19/20 22:49 Home Medications Medication Instructions Recorded Confirmed Last Taken Type ALPRAZolam [Xanax TAB] 1 mg PO TID PRN 10/18/20 10/18/20 Unknown History Albuterol Sulfate [Proair 90 mcg IH Q4HR 10/18/20 10/18/20 Unknown History Digihaler] Cyclobenzaprine [Flexeril] 10 mg PO TID PRN 10/18/20 10/18/20 Unknown History FLUoxetine [PROzac] 20 mg PO QDAY 10/18/20 10/18/20 Unknown History Furosemide [Lasix TAB] 80 mg PO DAILY 10/18/20 10/18/20 Unknown History Ketorolac [Toradol] 10 mg PO Q6HR PRN 10/18/20 10/18/20 Unknown History Naproxen 500 mg PO BID 10/18/20 10/18/20 Unknown History Nicotine [Habitrol] 14 mg TRANSDERMA DAILY 10/18/20 10/18/20 Unknown History Omeprazole 40 mg PO DAILY 10/18/20 10/18/20 Unknown History Potassium Chloride [K-Dur] 10 meq PO QDAY 10/18/20 10/18/20 Unknown History Sucralfate [Carafate] 1 gm PO ACHS 10/18/20 10/18/20 Unknown History Zolpidem [Ambien] 10 mg PO HS 10/18/20 10/18/20 Unknown History Active Meds: Active Medications Divalproex Sodium (Divalproex Dr 125 Mg Tab) 125 mg PO BID [facility] Last Admin: 10/24/20 09:17 Dose: 125 mg Documented by: Fish Oil ([place]-3 Fatty Acids/Fish Oil 1 Gram Cap) 2,000 mg PO BID [facility] Last Admin: 10/24/20 09:17 Dose: 2,000 mg Documented by: Fluoxetine HCl (Fluoxetine 20 Mg Cap) 20 mg PO QDAY [facility] Last Admin: 10/24/20 09:17 Dose: 20 mg Documented by: Lorazepam (Lorazepam 0.5 Mg Tab) 0.5 mg PO BID [facility] Last Admin: 10/24/20 09:17 Dose: 0.5 mg Documented by: Melatonin (Melatonin 5 Mg Tab) 5 mg PO QHS PRN PRN Reason: Sleep Last Admin: 10/22/20 20:33 Dose: 5 mg Documented by: Nicotine (Nicotine 14 Mg/24 Hr Patch) 14 mg TD QDAY [facility] Last Admin: 10/24/20 09:17 Dose: 14 mg Documented by: Trazodone HCl (Trazodone 50 Mg Tab) 50 mg PO QHS [facility] Last Admin: 10/23/20 21:23 Dose: 50 mg Documented by: Ziprasidone (Ziprasidone 20 Mg Cap) 20 mg PO BID [facility] Last Admin: 10/24/20 09:17 Dose: 20 mg Documented by: Results - Results Labs/Vitals: Laboratory Last Values WBC 8.7 K/mm3 (4.5-11.0) 10/18/20 23:34 RBC 4.61 M/mm3 (3.65-5.03) 10/18/20 23:34 Hgb 14.3 gm/dl (10.1-14.3) 10/18/20 23:34 Hct 41.5 % (30.3-42.9) 10/18/20 23:34 MCV 90 fl (79-97) 10/18/20 23:34 MCH 31 pg (28-32) 10/18/20 23:34 MCHC 34 % (30-34) 10/18/20 23:34 RDW 13.0 % (13.2-15.2) L 10/18/20 23:34 Plt Count 269 K/mm3 (140-440) 10/18/20 23:34 Lymph % (Auto) 38.6 % (13.4-35.0) H 10/18/20 23:34 [place] % (Auto) 8.7 % (0.0-7.3) H 10/18/20 23:34 Eos % (Auto) 3.0 % (0.0-4.3) 10/18/20 23:34 Baso % (Auto) 1.0 % (0.0-1.8) 10/18/20 23:34 Lymph # (Auto) 3.4 K/mm3 (1.2-5.4) 10/18/20 23:34 [place] # (Auto) 0.8 K/mm3 (0.0-0.8) 10/18/20 23:34 Eos # (Auto) 0.3 K/mm3 (0.0-0.4) 10/18/20 23:34 Baso # (Auto) 0.1 K/mm3 (0.0-0.1) 10/18/20 23:34 Seg Neutrophils % 48.7 % (40.0-70.0) 10/18/20 23:34 Seg Neutrophils # 4.2 K/mm3 (1.8-7.7) 10/18/20 23:34 Sodium 143 mmol/L (137-145) 10/18/20 23:34 Potassium 3.6 mmol/L (3.6-5.0) 10/18/20 23:34 Chloride 105.0 mmol/L (98-107) 10/18/20 23:34 Carbon Dioxide 27 mmol/L (22-30) 10/18/20 23:34 Anion Gap 15 mmol/L 10/18/20 23:34 BUN 13 mg/dL (7-17) 10/18/20 23:34 Creatinine 0.6 mg/dL (0.6-1.2) 10/18/20 23:34 Estimated GFR > 60 ml/min 10/18/20 23:34 BUN/Creatinine Ratio 22 % 10/18/20 23:34 Glucose 130 mg/dL (65-100) H 10/18/20 23:34 Hemoglobin A1c 6.0 % (4-6) 10/18/20 23:34 Calcium 9.1 mg/dL (8.4-10.2) 10/18/20 23:34 Total Bilirubin 0.20 mg/dL (0.1-1.2) 10/18/20 23:34 AST 10 units/L (5-40) 10/18/20 23:34 ALT 9 units/L (7-56) 10/18/20 23:34 Alkaline Phosphatase 93 units/L (35-129) 10/18/20 23:34 Total Protein 6.7 g/dL (6.3-8.2) 10/18/20 23:34 Albumin 3.8 g/dL (3.9-5) L 10/18/20 23:34 Albumin/Globulin Ratio 1.3 % 10/18/20 23:34 Triglycerides 103 mg/dL (2-149) 10/18/20 23:34 Cholesterol 140 mg/dL (50-199) 10/18/20 23:34 LDL Cholesterol Direct 91 mg/dL (50-130) 10/18/20 23:34 HDL Cholesterol 40 mg/dL (40-59) 10/18/20 23:34 Cholesterol/HDL Ratio 3.50 % 10/18/20 23:34 TSH 1.550 mlU/mL (0.270-4.200) 10/18/20 23:34 Last Vital Signs Temp 97.9 F 10/23/20 22:00 Pulse 82 10/23/20 22:00 Resp 14 10/23/20 22:00 BP 126/84 10/23/20 22:00 Pulse Ox 98 10/23/20 22:00
[2020-10-24] MEDS: traZODone 50 MG TAB PO SCH (22:17)
[2020-10-25 08:48] VITALS: BP 106/73
--- NOTE | 2020-10-25 08:56 | Discharge Summary ---
Providers - Providers Date of Admission: 10/18/20 15:05 Date of discharge: 10/25/20 Attending physician: FARAZ FRIED MD 10/18/20 09:09 Consult to Physician [CONS] Routine Comment: Consulting Provider: RAMOS RODRIGUES Physician Instructions: Reason For Exam: Med Managt Primary care physician: ELECTRONIC DIE MAKER Hospitalization Reason for admission: depression Admitting Diagnosis: F33.3 - MAJOR DEPRESSV DISORDER, RECURRENT, SEVERE W PSYCH SYMPTOMS Condition: Stable Hospital course: The patient was provided inpatient psychiatric treatment with safe and supportive care, medication adjustment, adverse effect monitoring, medical evaluations, medical treatments, assessment and psycho-education. The patient's mood, cognition, behavior, moral support are improved and stabilized. St the time of discharge, the patient had no endangering behavior and no debilitating adverse effects. The patient agreed on potential consequences of no treatment and gave informed consent. Disposition: DC-01 TO HOME OR SELFCARE Time spent for discharge: 39 Allergies/Adverse Reactions: Allergies Penicillins Allergy (Verified 10/18/20 13:53) Unknown sulfamethoxazole Allergy (Verified 10/19/20 22:47) Unknown trimethoprim Allergy (Verified 10/19/20 22:49) Unknown Vital Signs: Last Vital Signs Temp 98.6 F 10/25/20 08:16 Pulse 91 H 10/25/20 08:16 Resp 18 10/25/20 08:16 BP 106/73 10/25/20 08:16 Pulse Ox 97 10/25/20 08:16 Last Lab: Laboratory Last Values WBC 8.7 K/mm3 (4.5-11.0) 10/18/20 23:34 RBC 4.61 M/mm3 (3.65-5.03) 10/18/20 23:34 Hgb 14.3 gm/dl (10.1-14.3) 10/18/20 23:34 Hct 41.5 % (30.3-42.9) 10/18/20 23:34 MCV 90 fl (79-97) 10/18/20 23:34 MCH 31 pg (28-32) 10/18/20 23:34 MCHC 34 % (30-34) 10/18/20 23:34 RDW 13.0 % (13.2-15.2) L 10/18/20 23:34 Plt Count 269 K/mm3 (140-440) 10/18/20 23:34 Lymph % (Auto) 38.6 % (13.4-35.0) H 10/18/20 23:34 [place] % (Auto) 8.7 % (0.0-7.3) H 10/18/20 23:34 Eos % (Auto) 3.0 % (0.0-4.3) 10/18/20 23:34 Baso % (Auto) 1.0 % (0.0-1.8) 10/18/20 23:34 Lymph # (Auto) 3.4 K/mm3 (1.2-5.4) 10/18/20 23:34 [place] # (Auto) 0.8 K/mm3 (0.0-0.8) 10/18/20 23:34 Eos # (Auto) 0.3 K/mm3 (0.0-0.4) 10/18/20 23:34 Baso # (Auto) 0.1 K/mm3 (0.0-0.1) 10/18/20 23:34 Seg Neutrophils % 48.7 % (40.0-70.0) 10/18/20 23:34 Seg Neutrophils # 4.2 K/mm3 (1.8-7.7) 10/18/20 23:34 Sodium 143 mmol/L (137-145) 10/18/20 23:34 Potassium 3.6 mmol/L (3.6-5.0) 10/18/20 23:34 Chloride 105.0 mmol/L (98-107) 10/18/20 23:34 Carbon Dioxide 27 mmol/L (22-30) 10/18/20 23:34 Anion Gap 15 mmol/L 10/18/20 23:34 BUN 13 mg/dL (7-17) 10/18/20 23:34 Creatinine 0.6 mg/dL (0.6-1.2) 10/18/20 23:34 Estimated GFR > 60 ml/min 10/18/20 23:34 BUN/Creatinine Ratio 22 % 10/18/20 23:34 Glucose 130 mg/dL (65-100) H 10/18/20 23:34 Hemoglobin A1c 6.0 % (4-6) 10/18/20 23:34 Calcium 9.1 mg/dL (8.4-10.2) 10/18/20 23:34 Total Bilirubin 0.20 mg/dL (0.1-1.2) 10/18/20 23:34 AST 10 units/L (5-40) 10/18/20 23:34 ALT 9 units/L (7-56) 10/18/20 23:34 Alkaline Phosphatase 93 units/L (35-129) 10/18/20 23:34 Total Protein 6.7 g/dL (6.3-8.2) 10/18/20 23:34 Albumin 3.8 g/dL (3.9-5) L 10/18/20 23:34 Albumin/Globulin Ratio 1.3 % 10/18/20 23:34 Triglycerides 103 mg/dL (2-149) 10/18/20 23:34 Cholesterol 140 mg/dL (50-199) 10/18/20 23:34 LDL Cholesterol Direct 91 mg/dL (50-130) 10/18/20 23:34 HDL Cholesterol 40 mg/dL (40-59) 10/18/20 23:34 Cholesterol/HDL Ratio 3.50 % 10/18/20 23:34 TSH 1.550 mlU/mL (0.270-4.200) 10/18/20 23:34 Core Measure Documentation - Palliative Care Palliative Care/ Comfort Measures: Not Applicable - Core Measures Any of the following diagnoses?: none Exam - Constitutional Vitals: Temp Pulse Resp BP Pulse Ox 98.6 F 91 H 18 106/73 97 10/25/20 08:16 10/25/20 08:16 10/25/20 08:16 10/25/20 08:16 10/25/20 08:16 General appearance: Present: no acute distress - EENT Eyes: Present: PERRL, EOM intact ENT: hearing intact, clear oral mucosa - Neck Neck: Present: supple, normal ROM - Respiratory Respiratory effort: normal Plan Activity: advance as tolerated Weight Bearing Status: Weight Bear as Tolerated Care Plan Goals: maintain good and stable mental health Plan of Treatment: The patient should be compliant with medications, not to use drugs, and not to drink alcohol. The patient understands that if suicidal ideas, homicidal ideas or any endangering feeling arise, the patient should seek assistance including, but not limited to crisis hotline, and emergency room. Assessment: Major Depression with psychotic features Follow up with: PRIMARY CARE, [Primary Care Provider] - 7 Days Prescriptions: traZODone [Desyrel] 50 mg PO QHS #30 tablet Melatonin [Melatonin 5MG TAB] 5 mg PO QHS PRN #30 tablet PRN Reason: Sleep Divalproex Dr [Depakote Dr] 125 mg PO BID #60 tablet [place]-3 Fatty Acids/Fish Oil [Fish Oil] 2,000 mg PO BID #120 capsule Ziprasidone [Geodon] 20 mg PO BID #60 capsule Nicotine [Habitrol] 14 mg TD QDAY #30 patch
[2020-10-25] MEDS: FLUoxetine 20 MG CAP PO SCH (09:33)
[2020-10-25] MEDS: DIVALPROEX DR 125 MG TAB PO SCH (09:33)
[2020-10-25] MEDS: OMEGA-3 FATTY ACIDS/FISH OIL 1 GRAM CAP PO SCH (09:33)
[2020-10-25] MEDS: LORazepam 0.5 MG TAB PO SCH (09:33)
[2020-10-25] MEDS: ZIPRASIDONE 20 MG CAP PO SCH (09:33)
[2020-10-25] MEDS: NICOTINE 14 MG/24 HR PATCH TD SCH (09:33)
== END 2020-10-25 11:58 | disposition home or self-care (01) | DRG 885 ==
LOC: 3A 08:24 → UNDOADMIN 08:24 → 5A 15:05
PROVIDERS: ADMIT Psychiatry & Neurology Psychiatry; ATTEND Psychiatry & Neurology Psychiatry
DX: F20.89 Other schizophrenia (principal); F31.9 Bipolar disorder, unspecified; Z88.0 Allergy status to penicillin; Z88.2 Allergy status to sulfonamides; Z88.8 Allergy status to other drugs, medicaments and biological substances; Z79.899 Other long term (current) drug therapy
CPT/HCPCS: 36415; 80053; 80061; 83036; 84443; 85025; G0378; J2060

== ENCOUNTER 2021-03-31 18:11 | Inpatient (IN) | payer MEDICARE ==
--- NOTE | 2021-04-01 09:27 | History and Physical Report ---
GP History & Physical - History of Present Illness Date of admission: 03/31/21 Date of Examination: 04/01/21 Reason for Admission: Danger to self Chief Complaint: Bizarre behavior History of Present Illness: Dalia Evans is a 55 year old female with a history of depression and Bipolar who was admitted from [place] for wandering in traffic and bizarre behavior. In my interview with the patient, she refused to answer questions. Per note, patient is non compliant with medications and has selective mutism. PAST PSYCHIATRIC HISTORY: Unable to assess PAST MEDICAL HISTORY: None reported or document Family Psychiatric History: None reported or documented SOCIAL HISTORY: Unable to assess REVIEW OF SYSTEMS: Unable to assess MENTAL STATUS EXAMINATION: Unable to assess Diagnoses: Schizoaffective Disorder Treatment Plan Patient admitted for inpatient psychiatric evaluation, medication adjustment and close monitoring The patient's behavior, mood, sleep and appetite will be closely monitored. Patient enrolled in individual and group therapeutic sessions and encouraged to attend. Patient provided with a safe and structured environment. Patient's physical health needs will be addressed by the Hospitalist. Hospitalist Consulted Labs including CBC, CMP, Lipid profile and Hemoglobin A1C levels ordered for baseline reference Social Assessment will be completed and the Genetic Technologist will work with p atient and family to ensure a suitable and safe disposition Medication adjustment will be made as clinically indicated Continue home medications Usual Wellness Orthodoxy/Preservation: - Start Trazodone 50 mg po QHS & 50 mg po QHS PRN between 10 PM & 2 AM for insomnia - Start Melatonin 5 mg po QHS to promote circadian rhythm The patient agreed on the treatment plan, understood the risk, benefit, alternative treatment, potential consequence of no treatment, and gave informed consent. Estimated days: 7 Post hospital care: primary care provider, psychiatric provider Case staffed with Dr. Schmid Legal Status: Involuntary Legal Status: Voluntary Patient Problems: Current Active Problems Schizoaffective disorder (Acute) Reaction to Hospitalization: Accepting Medications and Allergies Allergies Allergy/AdvReac Type Severity Reaction Status Date / Time azithromycin Allergy Unknown Unverified 03/31/21 18:20 diphenhydramine Allergy Unknown Unverified 03/31/21 18:20 [From Benadryl] haloperidol [From Haldol] Allergy Unknown Unverified 03/31/21 18:20 Penicillins Allergy Unknown Verified 10/18/20 13:53 sulfamethoxazole Allergy Unknown Verified 10/19/20 22:47 trimethoprim Allergy Unknown Verified 10/19/20 22:49 Home Medications Medication Instructions Recorded Confirmed Last Taken Type ALPRAZolam [Xanax TAB] 1 mg PO TID PRN 10/18/20 03/31/21 Unknown History Albuterol Sulfate [Proair 90 mcg IH Q4HR 10/18/20 03/31/21 Unknown History Digihaler] Cyclobenzaprine [Flexeril 10 MG 10 mg PO TID PRN 10/18/20 03/31/21 Unknown History TAB] Ketorolac [Toradol] 10 mg PO Q6HR PRN 10/18/20 03/31/21 Unknown History Naproxen 500 mg PO BID 10/18/20 03/31/21 Unknown History Omeprazole 40 mg PO DAILY 10/18/20 03/31/21 Unknown History Divalproex [Phoebe Maloney] 125 mg PO BID #60 tablet 10/25/20 03/31/21 Unknown Rx Melatonin [Melatonin 5MG TAB] 5 mg PO QHS PRN #30 tablet 10/25/20 03/31/21 Unknown Rx Nicotine [Habitrol] 14 mg TD QDAY #30 patch 10/25/20 03/31/21 Unknown Rx [place]-3 Fatty Acids/Fish Oil [Fish 2,000 mg PO BID #120 capsule 10/25/20 03/31/21 Unknown Rx Oil] traZODone [Desyrel] 50 mg PO QHS #30 tablet 10/25/20 03/31/21 Unknown Rx OLANzapine [ZyPREXA] 10 mg PO BID 03/31/21 03/31/21 Unknown History hydrOXYzine PAMOATE [Vistaril] 50 mg PO BID 03/31/21 03/31/21 Unknown History Results - Results Labs/Vitals: Laboratory Last Values POC Glucose 129 mg/dL (70-105) H 04/01/21 02:11 Last Vital Signs Temp 98.3 F 04/01/21 01:40 Pulse 64 04/01/21 01:40 Resp 18 04/01/21 01:40 BP 122/85 04/01/21 01:40 Pulse Ox 96 04/01/21 01:40 Physical Examination - Constitutional Vitals: Vital Signs Temp Pulse Resp BP Pulse Ox 98.3 F 64 18 122/85 96 04/01/21 01:40 04/01/21 01:40 04/01/21 01:40 04/01/21 01:40 04/01/21 01:40 Temperature -Last 24 Hours Temperature 98.3 F Mental Status Exam - Vital signs Last Vital Signs Temp 98.3 F 04/01/21 01:40 Pulse 64 04/01/21 01:40 Resp 18 04/01/21 01:40 BP 122/85 04/01/21 01:40 Pulse Ox 96 04/01/21 01:40 Assessment and Plan - Psychiatric problem (1) Schizoaffective disorder Current Visit: Yes Status: Acute Physician Certification - Certification Statement Physician Certification Statement: This is an acknowledgement statement that DALIA EVANS is a 55 year old F who requires inpatient psychiatric admission for treatment which could reasonably be expected to improve the patient's condition for Estimated period of time patient will need to remain in the hospital: [ ] Plan for post-hospital care: [ ]
[2021-04-01] MEDS ORDERED: NON-FORMULARY EACH (Omeprazole [Omeprazole] 40 MG Capsule.Dr) PO SCH (10:00)
[2021-04-01] MEDS: DIVALPROEX DR 125 MG TAB PO SCH ×2 (11:37→21:45)
[2021-04-01] MEDS: OMEGA-3 FATTY ACIDS/FISH OIL 1 GRAM CAP PO SCH ×2 (11:37→21:44)
[2021-04-01] MEDS: PANTOPRAZOLE 40 MG TAB PO SCH (11:37)
[2021-04-01] MEDS: traZODone 50 MG TAB PO SCH (21:45)
[2021-04-01] MEDS ORDERED: MELATONIN 5 MG TAB PO PRN (22:00)
--- NOTE | 2021-04-02 07:55 | Progress Note ---
Subjective Date of service: 04/02/21 Subjective Comment: The patient was seen in the activity room eating breakfast. In my interview with the patient, she continues to be mute but nods yes or no when asked questions. She denies any current suicidal/homicidal ideation and denies hallucinations. Per nurse, "Pt received relaxing in the bedroom. Pt is mute and not responding to questions. No sign of pain and no acute distress observed." Treatment plan: Increase Depakote to 500MG po bid. REVIEW OF SYSTEMS Constitutional: Negative for weight loss ENT: Negative for stridor Respiratory: Negative for cough or hemoptysis All other systems reviewed and are negative MENTAL STATUS EXAMINATION General Appearance and Behavior: Age appropriate, wearing appropriate clothes, cooperative, polite with questioning, fair eye contact, calm Cooperation: cooperative Psychomotor Behavior: Psychomotor normal Mood: okay Affect and affective range: congruent with stated mood Thought Process: Withdrawn Thought Content: Not SI Speech: Mute Suicidal Ideation: Denies Homicidal Ideation: Denies Hallucination: Denies Delusions: None elicited Impulse Control: Limited Insight and Judgment: Limited Memory: Limited Attention: Normal Orientation: Alert and oriented Diagnoses: Schizoaffective Disorder Treatment Plan Patient admitted for inpatient psychiatric evaluation, medication adjustment and close monitoring The patient's behavior, mood, sleep and appetite will be closely monitored. Patient enrolled in individual and group therapeutic sessions and encouraged to attend. Patient provided with a safe and structured environment. Patient's physical health needs will be addressed by the Hospitalist. Hospitalist Consulted Labs including CBC, CMP, Lipid profile and Hemoglobin A1C levels ordered for baseline reference Social Assessment will be completed and the Guard Rail Installer will work with patient and family to ensure a suitable and safe disposition Medication adjustment will be made as clinically indicated Continue home medications Start Depakote- 500mg po BID Usual Wellness Evangelical/Preservation: - Start Trazodone 50 mg po QHS & 50 mg po QHS PRN between 10 PM & 2 AM for insomnia - Start Melatonin 5 mg po QHS to promote circadian rhythm The patient agreed on the treatment plan, understood the risk, benefit, alternative treatment, potential consequence of no treatment, and gave informed consent. Estimated days: 6 Post hospital care: primary care provider, psychiatric provider Case staffed with Dr. Schmid Legal Status: Involuntary Legal Status: Voluntary Patient Problems: Current Active Problems Schizoaffective disorder (Acute) Reaction to Hospitalization: Accepting Medications and Allergies Assessment and Plan - Patient Problems (1) Schizoaffective disorder Current Visit: Yes Status: Acute Medications and Allergies Allergies Allergy/AdvReac Type Severity Reaction Status Date / Time azithromycin Allergy Unknown Unverified 03/31/21 18:20 diphenhydramine Allergy Unknown Unverified 03/31/21 18:20 [From Benadryl] haloperidol [From Haldol] Allergy Unknown Unverified 03/31/21 18:20 Penicillins Allergy Unknown Verified 10/18/20 13:53 sulfamethoxazole Allergy Unknown Verified 10/19/20 22:47 trimethoprim Allergy Unknown Verified 10/19/20 22:49 Home Medications Medication Instructions Recorded Confirmed Last Taken Type ALPRAZolam [Xanax TAB] 1 mg PO TID PRN 10/18/20 03/31/21 Unknown History Albuterol Sulfate [Proair 90 mcg IH Q4HR 10/18/20 03/31/21 Unknown History Digihaler] Cyclobenzaprine [Flexeril 10 MG 10 mg PO TID PRN 10/18/20 03/31/21 Unknown History TAB] Ketorolac [Toradol] 10 mg PO Q6HR PRN 10/18/20 03/31/21 Unknown History Naproxen 500 mg PO BID 10/18/20 03/31/21 Unknown History Omeprazole 40 mg PO DAILY 10/18/20 03/31/[address] [Phoebe Maloney] 125 mg PO BID #60 tablet 10/25/20 03/31/21 Unknown Rx Melatonin [Melatonin 5MG TAB] 5 mg PO QHS PRN #30 tablet 10/25/20 03/31/21 Unknown Rx Nicotine [Habitrol] 14 mg TD QDAY #30 patch 10/25/20 03/31/21 Unknown Rx [place]-3 Fatty Acids/Fish Oil [Fish 2,000 mg PO BID #120 capsule 10/25/20 03/31/21 Unknown Rx Oil] traZODone [Desyrel] 50 mg PO QHS #30 tablet 10/25/20 03/31/21 Unknown Rx OLANzapine [ZyPREXA] 10 mg PO BID 03/31/21 03/31/21 Unknown History hydrOXYzine PAMOATE [Vistaril] 50 mg PO BID 03/31/21 03/31/21 Unknown History Active Meds: Active Medications Divalproex Sodium (Divalproex Dr 500 Mg Tab) 500 mg PO BID [facility] Fish Oil ([place]-3 Fatty Acids/Fish Oil 1 Gram Cap) 2,000 mg PO BID [facility] Last Admin: 04/01/21 21:44 Dose: 2,000 mg Documented by: Hydroxyzine Pamoate (Hydroxyzine Pamoate 50 Mg Cap) 50 mg PO BID [facility] Last Admin: 04/01/21 21:45 Dose: 50 mg Documented by: Melatonin (Melatonin 5 Mg Tab) 5 mg PO QHS PRN PRN Reason: Sleep Olanzapine (Olanzapine 10 Mg Tab) 10 mg PO BID [facility] Last Admin: 04/01/21 21:45 Dose: 10 mg Documented by: Pantoprazole Sodium (Pantoprazole 40 Mg Tab) 40 mg PO DAILY [facility] Last Admin: 04/01/21 11:37 Dose: Not Given Documented by: Trazodone HCl (Trazodone 50 Mg Tab) 50 mg PO QHS [facility] Last Admin: 04/01/21 21:45 Dose: 50 mg Documented by: Results - Results Labs/Vitals: Laboratory Last Values POC Glucose 129 mg/dL (70-105) H 04/01/21 02:11 Last Vital Signs Temp 98.4 F 04/01/21 19:48 Pulse 64 04/01/21 19:48 Resp 16 04/01/21 19:48 BP 120/82 04/01/21 19:48 Pulse Ox 97 04/01/21 19:48
[2021-04-02] MEDS: DIVALPROEX DR 500 MG TAB PO SCH ×2 (09:34→21:36)
[2021-04-02] MEDS: PANTOPRAZOLE 40 MG TAB PO SCH (09:34)
[2021-04-02] MEDS: OMEGA-3 FATTY ACIDS/FISH OIL 1 GRAM CAP PO SCH ×2 (09:35→21:36)
[2021-04-02] MEDS: traZODone 50 MG TAB PO SCH (21:36)
--- NOTE | 2021-04-03 06:27 | Consultation ---
History of Present Illness - Reason for Consult Consult date: 04/02/21 Medical management Requesting physician: FARAZ FRIED - History of Present Illness History of Present Illness: Dalia Vicente is a 55 year old female with a history of depression and Bipolar who was admitted from [facility] for wandering in traffic and bizarre behavior. In my interview with the patient, she refused to answer questions. Per note, patient is non compliant with medications and has selective mutism. PAST PSYCHIATRIC HISTORY: Depression PAST MEDICAL HISTORY:GERD, asthma/COPD Family Psychiatric History: None reported or documented SOCIAL HISTORY: Smoker, alcohol status unknown REVIEW OF SYSTEMS: Constitutional no weight loss or weight gain no fever or chills HEENT no sore throat no post nasal drip no diplopia Neck no neck stiffness no lymph gland enlargement Chest and lungs no shortness of breath cough or wheezing CVS no chest pain no diaphoresis no palpitations GI no nausea no vomiting no diarrhea Genitourinary system no dysuria no flank pain Musculoskeletal system no muscle pains no joint pains [employer]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 Skin no rash no itching Psychiatric depressed Hematologic no lymphedema or bruising Endocrine no polydipsia no polyuria no cold intolerance no heat intolerance MENTAL STATUS EXAMINATION: Unable to assess Medications and Allergies Allergies Allergy/AdvReac Type Severity Reaction Status Date / Time azithromycin Allergy Unknown Unverified 03/31/21 18:20 diphenhydramine Allergy Unknown Unverified 03/31/21 18:20 [From Benadryl] haloperidol [From Haldol] Allergy Unknown Unverified 03/31/21 18:20 Penicillins Allergy Unknown Verified 10/18/20 13:53 sulfamethoxazole Allergy Unknown Verified 10/19/20 22:47 trimethoprim Allergy Unknown Verified 10/19/20 22:49 Home Medications Medication Instructions Recorded Confirmed Last Taken Type ALPRAZolam [Xanax TAB] 1 mg PO TID PRN 10/18/20 03/31/21 Unknown History Albuterol Sulfate [Proair 90 mcg IH Q4HR 10/18/20 03/31/21 Unknown History Digihaler] Cyclobenzaprine [Flexeril 10 MG 10 mg PO TID PRN 10/18/20 03/31/21 Unknown History TAB] Ketorolac [Toradol] 10 mg PO Q6HR PRN 10/18/20 03/31/21 Unknown History Naproxen 500 mg PO BID 10/18/20 03/31/21 Unknown History Omeprazole 40 mg PO DAILY 10/18/20 03/31/[address] [Depakote ] 125 mg PO BID #60 tablet 10/25/20 03/31/21 Unknown Rx Melatonin [Melatonin 5MG TAB] 5 mg PO QHS PRN #30 tablet 10/25/20 03/31/21 Unknown Rx Nicotine [Habitrol] 14 mg TD QDAY #30 patch 10/25/20 03/31/21 Unknown Rx [place]-3 Fatty Acids/Fish Oil [Fish 2,000 mg PO BID #120 capsule 10/25/2003/31 Unknown Rx Oil] traZODone [Desyrel] 50 mg PO QHS #30 tablet 10/25/20 03/31/21 Unknown Rx OLANzapine [ZyPREXA] 10 mg PO BID 03/31/21 03/31/21 Unknown History hydrOXYzine PAMOATE [Vistaril] 50 mg PO BID 03/31/21 03/31/21 Unknown History Active Meds: Active Medications Divalproex Sodium (Divalproex Dr 500 Mg Tab) 500 mg PO BID [facility] Last Admin: 04/02/21 21:36 Dose: 500 mg Documented by: Fish Oil ([place]-3 Fatty Acids/Fish Oil 1 Gram Cap) 2,000 mg PO BID [facility] Last Admin: 04/02/21 21:36 Dose: Not Given Documented by: Hydroxyzine Pamoate (Hydroxyzine Pamoate 50 Mg Cap) 50 mg PO BID [facility] Last Admin: 04/02/21 21:36 Dose: 50 mg Documented by: Melatonin (Melatonin 5 Mg Tab) 5 mg PO QHS PRN PRN Reason: Sleep Olanzapine (Olanzapine 10 Mg Tab) 10 mg PO BID [facility] Last Admin: 04/02/21 21:38 Dose: 10 mg Documented by: Pantoprazole Sodium (Pantoprazole 40 Mg Tab) 40 mg PO DAILY [facility] Last Admin: 04/02/21 09:34 Dose: 40 mg Documented by: Trazodone HCl (Trazodone 50 Mg Tab) 50 mg PO QHS [facility] Last Admin: 04/02/21 21:36 Dose: 50 mg Documented by: Exam - Constitutional Vitals: Temp Pulse Resp BP Pulse Ox 98.4 F 76 16 110/75 96 04/02/21 19:50 04/02/21 19:50 04/02/21 19:50 04/02/21 19:50 04/02/21 19:50 General appearance: Present: no acute distress, well-nourished - EENT Eyes: Present: PERRL ENT: hearing intact, clear oral mucosa - Neck Neck: Present: supple, normal ROM - Respiratory Respiratory effort: normal Respiratory: bilateral: CTA - Cardiovascular Heart rate: 78 Rhythm: regular Heart Sounds: Present: S1 & S2. Absent: rub, click - Extremities Extremities: pulses symmetrical, No edema Peripheral Pulses: within normal limits - Abdominal General gastrointestinal: Present: soft, non-tender, non-distended, normal bowel sounds Female genitourinary: Present: normal - Integumentary Integumentary: Present: clear, warm, dry - Musculoskeletal Musculoskeletal: gait normal, strength equal bilaterally - Psychiatric Psychiatric: appropriate mood/affect, depressed - Neurologic Neurologic: CNII-XII intact, moves all extremities - Allied Health Allied health notes reviewed: social work, case management Assessment and Plan - Patient Problems (1) Asthma Current Visit: Yes Status: Chronic Qualifiers: Asthma severity: mild Plan to address problem: Albuterol MDI as needed and nebulizer treatments as needed (2) GERD (gastroesophageal reflux disease) Current Visit: Yes Status: Chronic Qualifiers: Esophagitis presence: without esophagitis Qualified Code(s): K21.9 - Gastro-esophageal reflux disease without esophagitis Plan to address problem: Continue PPIs (3) Schizoaffective disorder Current Visit: Yes Status: Chronic Qualifiers: Schizoaffective disorder type: depressive Qualified Code(s): F25.1 - Schizoaffective disorder, depressive type Plan to address problem: Defer to psychiatry (4) DVT prophylaxis Current Visit: Yes Status: Acute Plan to address problem: On heparin and GI prophylaxis
--- NOTE | 2021-04-03 07:56 | Progress Note ---
Subjective Date of service: 04/03/21 Subjective Comment: 04/02/2021: The patient was seen in the activity room eating breakfast. In my interview with the patient, she continues to be mute but nods yes or no when asked questions. She denies any current suicidal/homicidal ideation and denies hallucinations. Per nurse, "Pt received relaxing in the bedroom. Pt is mute and not responding to questions. No sign of pain and no acute distress observed." Treatment plan: Increase Depakote to 500MG po bid. 04/03/2021: The patient was seen resting in bed. Patient continues to be mute communicates via nods and when asked to come to breakfast she got off her bed and walked towards the activity room for breakfast. The nods ok for mood . She nods good for sleep and appetite. She denies any current suicidal ideation and denies hallucinations. Per nurse, "Patient continues to be isolative, and selectively mute. When asked how she was feeling and did she have any thoughts of harming herself or others, patient did not answer but stared at nurse blinking as if in response to questions being asked. Patient was compliant with medication except Fish oil which she refused. Patient did verbaly respond when asked if she would like a sandwich to which she replied just some crackers. Patient remains in room." REVIEW OF SYSTEMS Constitutional: Negative for weight loss ENT: Negative for stridor Respiratory: Negative for cough or hemoptysis All other systems reviewed and are negative MENTAL STATUS EXAMINATION General Appearance and Behavior: Age appropriate, wearing appropriate clothes, cooperative, polite with questioning, fair eye contact, calm Cooperation: cooperative Psychomotor Behavior: Psychomotor normal Mood: okay Affect and affective range: congruent with stated mood Thought Process: Withdrawn Thought Content: Not SI Speech: Mute Suicidal Ideation: Denies Homicidal Ideation: Denies Hallucination: Denies Delusions: None elicited Impulse Control: Limited Insight and Judgment: Limited Memory: Limited Attention: Normal Orientation: Alert and oriented Diagnoses: Schizoaffective Disorder Treatment Plan Patient admitted for inpatient psychiatric evaluation, medication adjustment and close monitoring The patient's behavior, mood, sleep and appetite will be closely monitored. Patient enrolled in individual and group therapeutic sessions and encouraged to attend. Patient provided with a safe and structured environment. Patient's physical health needs will be addressed by the Hospitalist. Hospitalist Consulted Labs including CBC, CMP, Lipid profile and Hemoglobin A1C levels ordered for baseline reference Social Assessment will be completed and the Facility Practice Specialist will work with patient and family to ensure a suitable and safe disposition Medication adjustment will be made as clinically indicated Continue home medications Start Depakote- 500mg po BID Usual Wellness [employer]/Preservation: - Start Trazodone 50 mg po QHS & 50 mg po QHS PRN between 10 PM & 2 AM for insomnia - Start Melatonin 5 mg po QHS to promote circadian rhythm The patient agreed on the treatment plan, understood the risk, benefit, alternative treatment, potential consequence of no treatment, and gave informed consent. Estimated days: 6 Post hospital care: primary care provider, psychiatric provider Case staffed with Dr. Schmid Legal Status: Involuntary Legal Status: Voluntary Patient Problems: Current Active Problems Schizoaffective disorder (Acute) Reaction to Hospitalization: Accepting Medications and Allergies Assessment and Plan - Patient Problems (1) Schizoaffective disorder Current Visit: Yes Status: Acute Medications and Allergies Assessment and Plan - Patient Problems (1) Schizoaffective disorder Current Visit: Yes Status: Chronic Qualifiers: Schizoaffective disorder type: depressive Qualified Code(s): F25.1 - Schizoaffective disorder, depressive type Medications and Allergies Allergies Allergy/AdvReac Type Severity Reaction Status Date / Time azithromycin Allergy Unknown Unverified 03/31/21 18:20 diphenhydramine Allergy Unknown Unverified 03/31/21 18:20 [From Benadryl] haloperidol [From Haldol] Allergy Unknown Unverified 03/31/21 18:20 Penicillins Allergy Unknown Verified 10/18/20 13:53 sulfamethoxazole Allergy Unknown Verified 10/19/20 22:47 trimethoprim Allergy Unknown Verified 10/19/20 22:49 Home Medications Medication Instructions Recorded Confirmed Last Taken Type ALPRAZolam [Xanax TAB] 1 mg PO TID PRN 10/18/20 03/31/21 Unknown History Albuterol Sulfate [Proair 90 mcg IH Q4HR 10/18/20 03/31/21 Unknown History Digihaler] Cyclobenzaprine [Flexeril 10 MG 10 mg PO TID PRN 10/18/20 03/31/21 Unknown History TAB] Ketorolac [Toradol] 10 mg PO Q6HR PRN 10/18/20 03/31/21 Unknown History Naproxen 500 mg PO BID 10/18/20 03/31/21 Unknown History Omeprazole 40 mg PO DAILY 10/18/20 03/31/[address] [Depakote Dr] 125 mg PO BID #60 tablet 10/25/20 03/31/21 Unknown Rx Melatonin [Melatonin 5MG TAB] 5 mg PO QHS PRN #30 tablet 10/25/20 03/31/21 Unknown Rx Nicotine [Habitrol] 14 mg TD QDAY #30 patch 10/25/20 03/31/21 Unknown Rx [place]-3 Fatty Acids/Fish Oil [Fish 2,000 mg PO BID #120 capsule 10/25/20 03/31/21 Unknown Rx Oil] traZODone [Desyrel] 50 mg PO QHS #30 tablet 10/25/20 03/31/21 Unknown Rx OLANzapine [ZyPREXA] 10 mg PO BID 03/31/21 03/31/21 Unknown History hydrOXYzine PAMOATE [Vistaril] 50 mg PO BID 03/31/21 03/31/21 Unknown History Active Meds: Active Medications Divalproex Sodium (Divalproex Dr 500 Mg Tab) 500 mg PO BID [facility] Last Admin: 04/02/21 21:36 Dose: 500 mg Documented by: Fish Oil ([place]-3 Fatty Acids/Fish Oil 1 Gram Cap) 2,000 mg PO BID [facility] Last Admin: 04/02/21 21:36 Dose: Not Given Documented by: Hydroxyzine Pamoate (Hydroxyzine Pamoate 50 Mg Cap) 50 mg PO BID [facility] Last Admin: 04/02/21 21:36 Dose: 50 mg Documented by: Melatonin (Melatonin 5 Mg Tab) 5 mg PO QHS PRN PRN Reason: Sleep Olanzapine (Olanzapine 10 Mg Tab) 10 mg PO BID [facility] Last Admin: 04/02/21 21:38 Dose: 10 mg Documented by: Pantoprazole Sodium (Pantoprazole 40 Mg Tab) 40 mg PO DAILY [facility] Last Admin: 04/02/21 09:34 Dose: 40 mg Documented by: Trazodone HCl (Trazodone 50 Mg Tab) 50 mg PO QHS [facility] Last Admin: 04/02/21 21:36 Dose: 50 mg Documented by: Results - Results Labs/Vitals: Laboratory Last Values POC Glucose 129 mg/dL (70-105) H 04/01/21 02:11 Last Vital Signs Temp 98.4 F 04/02/21 19:50 Pulse 76 04/02/21 19:50 Resp 16 04/02/21 19:50 BP 110/75 04/02/21 19:50 Pulse Ox 96 04/02/21 19:50
[2021-04-03 08:32] LABS: Basophils % (Auto) 0.8 % (0.0-1.8); Eosinophils # (Auto) 0.2 K/mm3 (0.0-0.4); Hematocrit 44.1 % (30.3-42.9); Hemoglobin 15.3 gm/dl (10.1-14.3); Lymphocytes # (Auto) 2.4 K/mm3 (1.2-5.4); Lymphocytes % (Auto) 42.4 % (13.4-35.0); Mean Corpuscular HGB Conc 35 % (30-34); Mean Corpuscular Volume 89 fl (79-97); Monocytes # (Auto) 0.3 K/mm3 (0.0-0.8); Platelet Count 241 K/mm3 (140-440); Red Blood Count 4.97 M/mm3 (3.65-5.03); Red Cell Distribution Width 13.5 % (13.2-15.2)
[2021-04-03 08:56] LABS: Alanine Aminotransferase 19 units/L (7-56); Albumin 3.8 g/dL (3.9-5); Blood Urea Nitrogen 17 mg/dL (7-17); Calcium 9.2 mg/dL (8.4-10.2); Chol/HDL Ratio 4.15 %; HDL Cholesterol 38 mg/dL (40-59); Hemolysis Index 10; LDL Cholesterol,Direct 112 mg/dL (50-130)
[2021-04-03 09:18] LABS: BUN/Creatinine Ratio 34
[2021-04-03] MEDS: PANTOPRAZOLE 40 MG TAB PO SCH (10:30)
[2021-04-03] MEDS: DIVALPROEX DR 500 MG TAB PO SCH ×2 (10:30→21:12)
[2021-04-03] MEDS: OMEGA-3 FATTY ACIDS/FISH OIL 1 GRAM CAP PO SCH ×2 (10:31→21:12)
[2021-04-03 11:49] LABS: Hepatitis B Surface Antigen Non-Reactive (Negative); Hepatitis C Virus Antibody Reactive (NonReactive)
[2021-04-03] MEDS: traZODone 50 MG TAB PO SCH (21:12)
--- NOTE | 2021-04-04 08:56 | Progress Note ---
Subjective Date of service: 04/04/21 Subjective Comment: 04/02/2021: The patient was seen in the activity room eating breakfast. In my interview with the patient, she continues to be mute but nods yes or no when asked questions. She denies any current suicidal/homicidal ideation and denies hallucinations. Per nurse, "Pt received relaxing in the bedroom. Pt is mute and not responding to questions. No sign of pain and no acute distress observed." Treatment plan: Increase Depakote to 500MG po bid. 04/03/2021: The patient was seen resting in bed. Patient continues to be mute communicates via nods and when asked to come to breakfast she got off her bed and walked towards the activity room for breakfast. The nods ok for mood . She nods good for sleep and appetite. She denies any current suicidal ideation and denies hallucinations. Per nurse, "Patient continues to be isolative, and selectively mute. When asked how she was feeling and did she have any thoughts of harming herself or others, patient did not answer but stared at nurse blinking as if in response to questions being asked. Patient was compliant with medication except Fish oil which she refused. Patient did verbaly respond when asked if she would like a sandwich to which she replied just some crackers. Patient remains in room." 04/04/2021: The patient was seen in the activity room eating breakfast, she continues to be isolative but was verbal today. She reports mood as "good." The patient states sleep and appetite as good. she denies any current suicidal/homicidal thoughts and denies hallucinations. Per nurse, " pt refused all bedtime medication, she said it makes her sick, good appetite, no distress noted, will continue to monitor for safety. " No changes made today. REVIEW OF SYSTEMS Constitutional: Negative for weight loss ENT: Negative for stridor Respiratory: Negative for cough or hemoptysis All other systems reviewed and are negative MENTAL STATUS EXAMINATION General Appearance and Behavior: Age appropriate, wearing appropriate clothes, cooperative, polite with questioning, fair eye contact, calm Cooperation: cooperative Psychomotor Behavior: Psychomotor normal Mood: Good Affect and affective range: congruent with stated mood Thought Process: Withdrawn Thought Content: Not SI Speech: Normal Suicidal Ideation: Denies Homicidal Ideation: Denies Hallucination: Denies Delusions: None elicited Impulse Control: Limited Insight and Judgment: Limited Memory: Limited Attention: Normal Orientation: Alert and oriented Diagnoses: Schizoaffective Disorder Treatment Plan Patient admitted for inpatient psychiatric evaluation, medication adjustment and close monitoring The patient's behavior, mood, sleep and appetite will be closely monitored. Patient enrolled in individual and group therapeutic sessions and encouraged to attend. Patient provided with a safe and structured environment. Patient's physical health needs will be addressed by the Hospitalist. Hospitalist Consulted Labs including CBC, CMP, Lipid profile and Hemoglobin A1C levels ordered for baseline reference Social Assessment will be completed and the Inseminator will work with patient and family to ensure a suitable and safe disposition Medication adjustment will be made as clinically indicated No changes made today. Continue home medications Continue Depakote- 500mg po BID Usual Wellness [employer]/Preservation: - Start Trazodone 50 mg po QHS & 50 mg po QHS PRN between 10 PM & 2 AM for insomnia - Start Melatonin 5 mg po QHS to promote circadian rhythm The patient agreed on the treatment plan, understood the risk, benefit, alternative treatment, potential consequence of no treatment, and gave informed consent. Estimated days: 6 Post hospital care: primary care provider, psychiatric provider Case staffed with Dr. Schmid Legal Status: Involuntary Legal Status: Voluntary Patient Problems: Current Active Problems Schizoaffective disorder (Acute) Reaction to Hospitalization: Accepting Medications and Allergies Assessment and Plan - Patient Problems (1) Schizoaffective disorder Current Visit: Yes Status: Acute Medications and Allergies Assessment and Plan - Patient Problems (1) Schizoaffective disorder Current Visit: Yes Status: Chronic Qualifiers: Schizoaffective disorder type: depressive Qualified Code(s): F25.1 - Schizoaffective disorder, depressive type Medications and Allergies Assessment and Plan - Patient Problems (1) Schizoaffective disorder Current Visit: Yes Status: Chronic Qualifiers: Schizoaffective disorder type: depressive Qualified Code(s): F25.1 - Schizoaffective disorder, depressive type Medications and Allergies Allergies Allergy/AdvReac Type Severity Reaction Status Date / Time azithromycin Allergy Unknown Verified 04/03/21 10:28 diphenhydramine Allergy Unknown Verified 04/03/21 10:28 [From Benadryl] haloperidol [From Haldol] Allergy Unknown Verified 04/03/21 10:28 Penicillins Allergy Unknown Verified 04/03/21 10:28 sulfamethoxazole Allergy Unknown Verified 04/03/21 10:28 trimethoprim Allergy Unknown Verified 04/03/21 10:28 Home Medications Medication Instructions Recorded Confirmed Last Taken Type ALPRAZolam [Xanax TAB] 1 mg PO TID PRN 10/18/20 03/31/21 Unknown History Albuterol Sulfate [Proair 90 mcg IH Q4HR 10/18/20 03/31/21 Unknown History Digihaler] Cyclobenzaprine [Flexeril 10 MG 10 mg PO TID PRN 10/18/20 03/31/21 Unknown History TAB] Ketorolac [Toradol] 10 mg PO Q6HR PRN 10/18/20 03/31/21 Unknown History Naproxen 500 mg PO BID 10/18/20 03/31/21 Unknown History Omeprazole 40 mg PO DAILY 10/18/20 03/31/[address] [Phoebe Maloney] 125 mg PO BID #60 tablet 10/25/20 03/31/21 Unknown Rx Melatonin [Melatonin 5MG TAB] 5 mg PO QHS PRN #30 tablet 10/25/20 03/31/21 Unknown Rx Nicotine [Habitrol] 14 mg TD QDAY #30 patch 10/25/20 03/31/21 Unknown Rx [place]-3 Fatty Acids/Fish Oil [Fish 2,000 mg PO BID #120 capsule 10/25/20 03/31/21 Unknown Rx Oil] traZODone [Desyrel] 50 mg PO QHS #30 tablet 10/25/20 03/31/21 Unknown Rx OLANzapine [ZyPREXA] 10 mg PO BID 03/31/21 03/31/21 Unknown History hydrOXYzine PAMOATE [Vistaril] 50 mg PO BID 03/31/21 03/31/21 Unknown History Active Meds: Active Medications Divalproex Sodium (Divalproex Dr 500 Mg Tab) 500 mg PO BID [facility] Last Admin: 04/03/21 21:12 Dose: Not Given Documented by: Fish Oil ([place]-3 Fatty Acids/Fish Oil 1 Gram Cap) 2,000 mg PO BID [facility] Last Admin: 04/03/21 21:12 Dose: Not Given Documented by: Hydroxyzine Pamoate (Hydroxyzine Pamoate 50 Mg Cap) 50 mg PO BID [facility] Last Admin: 04/03/21 21:12 Dose: Not Given Documented by: Melatonin (Melatonin 5 Mg Tab) 5 mg PO QHS PRN PRN Reason: Sleep Olanzapine (Olanzapine 10 Mg Tab) 10 mg PO BID [facility] Last Admin: 04/03/21 21:12 Dose: Not Given Documented by: Pantoprazole Sodium (Pantoprazole 40 Mg Tab) 40 mg PO DAILY [facility] Last Admin: 04/03/21 10:30 Dose: 40 mg Documented by: Trazodone HCl (Trazodone 50 Mg Tab) 50 mg PO QHS [facility] Last Admin: 04/03/21 21:12 Dose: Not Given Documented by: Results - Results Labs/Vitals: Laboratory Last Values WBC 5.7 K/mm3 (4.5-11.0) 04/03/21 08:00 RBC 4.97 M/mm3 (3.65-5.03) 04/03/21 08:00 Hgb 15.3 gm/dl (10.1-14.3) H 04/03/21 08:00 Hct 44.1 % (30.3-42.9) H 04/03/21 08:00 MCV 89 fl (79-97) 04/03/21 08:00 MCH 31 pg (28-32) 04/03/21 08:00 MCHC 35 % (30-34) H 04/03/21 08:00 RDW 13.5 % (13.2-15.2) 04/03/21 08:00 Plt Count 241 K/mm3 (140-440) 04/03/21 08:00 Lymph % (Auto) 42.4 % (13.4-35.0) H 04/03/21 08:00 [place] % (Auto) 6.0 % (0.0-7.3) 04/03/21 08:00 Eos % (Auto) 4.0 % (0.0-4.3) 04/03/21 08:00 Baso % (Auto) 0.8 % (0.0-1.8) 04/03/21 08:00 Lymph # (Auto) 2.4 K/mm3 (1.2-5.4) 04/03/21 08:00 [place] # (Auto) 0.3 K/mm3 (0.0-0.8) 04/03/21 08:00 Eos # (Auto) 0.2 K/mm3 (0.0-0.4) 04/03/21 08:00 Baso # (Auto) 0.0 K/mm3 (0.0-0.1) 04/03/21 08:00 Seg Neutrophils % 46.8 % (40.0-70.0) 04/03/21 08:00 Seg Neutrophils # 2.7 K/mm3 (1.8-7.7) 04/03/21 08:00 Sodium 142 mmol/L (137-145) 04/03/21 08:00 Potassium 4.0 mmol/L (3.6-5.0) 04/03/21 08:00 Chloride 105.9 mmol/L (98-107) 04/03/21 08:00 Carbon Dioxide 23 mmol/L (22-30) 04/03/21 08:00 Anion Gap 17 mmol/L 04/03/21 08:00 BUN 17 mg/dL (7-17) 04/03/21 08:00 Creatinine 0.5 mg/dL (0.6-1.2) L 04/03/21 08:00 Estimated GFR > 60 ml/min 04/03/21 08:00 BUN/Creatinine Ratio 34 % 04/03/21 08:00 Glucose 116 mg/dL (65-100) H 04/03/21 08:00 POC Glucose 129 mg/dL (70-105) H 04/01/21 02:11 Calcium 9.2 mg/dL (8.4-10.2) 04/03/21 08:00 Total Bilirubin 0.30 mg/dL (0.1-1.2) 04/03/21 08:00 AST 20 units/L (5-40) 04/03/21 08:00 ALT 19 units/L (7-56) 04/03/21 08:00 Alkaline Phosphatase 105 units/L (35-129) 04/03/21 08:00 Total Protein 6.5 g/dL (6.3-8.2) 04/03/21 08:00 Albumin 3.8 g/dL (3.9-5) L 04/03/21 08:00 Albumin/Globulin Ratio 1.4 % 04/03/21 08:00 Triglycerides 93 mg/dL (2-149) 04/03/21 08:00 Cholesterol 158 mg/dL (50-199) 04/03/21 08:00 LDL Cholesterol Direct 112 mg/dL (50-130) 04/03/21 08:00 HDL Cholesterol 38 mg/dL (40-59) L 04/03/21 08:00 Cholesterol/HDL Ratio 4.15 % 04/03/21 08:00 TSH 1.640 mlU/mL (0.270-4.200) 04/03/21 08:00 Hepatitis A IgM Ab Non-reactive (NonReactive) 04/03/21 08:00 Hep Bs Antigen Non-reactive (Negative) 04/03/21 08:00 Hep B Core IgM Ab Non-reactive (NonReactive) 04/03/21 08:00 Hepatitis C Antibody Reactive (NonReactive) A 04/03/21 08:00 Last Vital Signs Temp 97.8 F 04/04/21 07:49 Pulse 79 04/04/21 07:49 Resp 16 04/04/21 07:49 BP 109/69 04/04/21 07:49 Pulse Ox 97 04/04/21 07:49
[2021-04-04] MEDS: OMEGA-3 FATTY ACIDS/FISH OIL 1 GRAM CAP PO SCH ×2 (10:00→21:17)
[2021-04-04] MEDS: PANTOPRAZOLE 40 MG TAB PO SCH (10:00)
[2021-04-04] MEDS: DIVALPROEX DR 500 MG TAB PO SCH ×2 (10:00→21:18)
--- NOTE | 2021-04-04 15:57 | Progress Note ---
Assessment and Plan Assessment and plan: -- Asthma Current Visit: Yes Status: Chronic : Albuterol MDI as needed and nebulizer treatments as needed --GERD (gastroesophageal reflux disease) Current Visit: Yes Status: Chronic Continue PPIs --Schizoaffective disorder Current Visit: Yes Status: Chronic Defer to psychiatry --Obesity Current Visit: Yes Status: Chronic Patient needs weight reduction when medically stable -- DVT prophylaxis Current Visit: Yes Status: Acute SCDs while resting Continue current management Closely monitor the patient and adjust the management as needed Plan of care reviewed with the patient's nurse History Interval history: I have seen and examined the patient at the bedside Patient's chart and medications reviewed Patient is in her room very quiet staring at me Not in acute distress. Noncommunicative Vital signs noted Hospitalist Physical - Constitutional Vitals: Temp Pulse Resp BP Pulse Ox 97.8 F 79 16 109/69 97 04/04/21 07:49 04/04/21 07:49 04/04/21 07:49 04/04/21 07:49 04/04/21 07:49 General appearance: Present: no acute distress, well-nourished, other (Noncommunicative) - EENT Eyes: Present: PERRL, EOM intact - Neck Neck: Present: supple, normal ROM - Respiratory Respiratory effort: normal Respiratory: bilateral: diminished, negative: rales, rhonchi, wheezing - Cardiovascular Rhythm: regular Heart Sounds: Present: S1 & S2 - Extremities Extremities: no ischemia, No edema - Abdominal General gastrointestinal: soft, non-tender, non-distended, normal bowel sounds - Integumentary Integumentary: Present: clear, warm - Psychiatric Psychiatric: appropriate mood/affect, cooperative - Neurologic Neurologic: CNII-XII intact, moves all extremities Results - Labs CBC & Chem 7: 04/03/21 08:00 04/03/21 08:00 Labs: Laboratory Last Values WBC 5.7 K/mm3 (4.5-11.0) 04/03/21 08:00 RBC 4.97 M/mm3 (3.65-5.03) 04/03/21 08:00 Hgb 15.3 gm/dl (10.1-14.3) H 04/03/21 08:00 Hct 44.1 % (30.3-42.9) H 04/03/21 08:00 MCV 89 fl (79-97) 04/03/21 08:00 MCH 31 pg (28-32) 04/03/21 08:00 MCHC 35 % (30-34) H 04/03/21 08:00 RDW 13.5 % (13.2-15.2) 04/03/21 08:00 Plt Count 241 K/mm3 (140-440) 04/03/21 08:00 Lymph % (Auto) 42.4 % (13.4-35.0) H 04/03/21 08:00 [place] % (Auto) 6.0 % (0.0-7.3) 04/03/21 08:00 Eos % (Auto) 4.0 % (0.0-4.3) 04/03/21 08:00 Baso % (Auto) 0.8 % (0.0-1.8) 04/03/21 08:00 Lymph # (Auto) 2.4 K/mm3 (1.2-5.4) 04/03/21 08:00 [place] # (Auto) 0.3 K/mm3 (0.0-0.8) 04/03/21 08:00 Eos # (Auto) 0.2 K/mm3 (0.0-0.4) 04/03/21 08:00 Baso # (Auto) 0.0 K/mm3 (0.0-0.1) 04/03/21 08:00 Seg Neutrophils % 46.8 % (40.0-70.0) 04/03/21 08:00 Seg Neutrophils # 2.7 K/mm3 (1.8-7.7) 04/03/21 08:00 Sodium 142 mmol/L (137-145) 04/03/21 08:00 Potassium 4.0 mmol/L (3.6-5.0) 04/03/21 08:00 Chloride 105.9 mmol/L (98-107) 04/03/21 08:00 Carbon Dioxide 23 mmol/L (22-30) 04/03/21 08:00 Anion Gap 17 mmol/L 04/03/21 08:00 BUN 17 mg/dL (7-17) 04/03/21 08:00 Creatinine 0.5 mg/dL (0.6-1.2) L 04/03/21 08:00 Estimated GFR > 60 ml/min 04/03/21 08:00 BUN/Creatinine Ratio 34 % 04/03/21 08:00 Glucose 116 mg/dL (65-100) H 04/03/21 08:00 POC Glucose 129 mg/dL (70-105) H 04/01/21 02:11 Calcium 9.2 mg/dL (8.4-10.2) 04/03/21 08:00 Total Bilirubin 0.30 mg/dL (0.1-1.2) 04/03/21 08:00 AST 20 units/L (5-40) 04/03/21 08:00 ALT 19 units/L (7-56) 04/03/21 08:00 Alkaline Phosphatase 105 units/L (35-129) 04/03/21 08:00 Total Protein 6.5 g/dL (6.3-8.2) 04/03/21 08:00 Albumin 3.8 g/dL (3.9-5) L 04/03/21 08:00 Albumin/Globulin Ratio 1.4 % 04/03/21 08:00 Triglycerides 93 mg/dL (2-149) 04/03/21 08:00 Cholesterol 158 mg/dL (50-199) 04/03/21 08:00 LDL Cholesterol Direct 112 mg/dL (50-130) 04/03/21 08:00 HDL Cholesterol 38 mg/dL (40-59) L 04/03/21 08:00 Cholesterol/HDL Ratio 4.15 % 04/03/21 08:00 TSH 1.640 mlU/mL (0.270-4.200) 04/03/21 08:00 Hepatitis A IgM Ab Non-reactive (NonReactive) 04/03/21 08:00 Hep Bs Antigen Non-reactive (Negative) 04/03/21 08:00 Hep B Core IgM Ab Non-reactive (NonReactive) 04/03/21 08:00 Hepatitis C Antibody Reactive (NonReactive) A 04/03/21 08:00 Uzniga/IV: Voiding Method Toilet Active Medications - Current Medications Current Medications: Generic Name Dose Route Start Last Admin Trade Name Freq PRN Reason Stop Dose Admin Divalproex Sodium 500 mg 04/02/21 10:00 04/04/21 10:[address] 500 Mg Tab PO 500 mg BID CHARLETTE Administration Fish Oil 2,000 mg 04/01/21 10:00 04/04/21 10:00 [place]-3 Fatty Acids/Fish Oil 1 Gram Cap PO Not Given BID CHARLETTE Hydroxyzine Pamoate 50 mg 04/01/21 10:00 04/04/21 10:00 Hydroxyzine Pamoate 50 Mg Cap PO 50 mg BID CHARLETTE Administration Melatonin 5 mg 04/01/21 22:00 Melatonin 5 Mg Tab PO QHS PRN Sleep Olanzapine 10 mg 04/01/21 10:00 04/04/21 10:00 Olanzapine 10 Mg Tab PO 10 mg BID CHARLETTE Administration Pantoprazole Sodium 40 mg 04/01/21 10:00 04/04/21 10:00 Pantoprazole 40 Mg Tab PO 40 mg DAILY CHARLETTE Administration Trazodone HCl 50 mg 04/01/21 22:00 04/03/21 21:12 Trazodone 50 Mg Tab PO Not Given QHS CHARLETTE
[2021-04-04] MEDS: traZODone 50 MG TAB PO SCH (21:17)
--- NOTE | 2021-04-05 08:05 | Progress Note ---
Subjective Date of service: 04/05/21 Subjective Comment: 04/02/2021: The patient was seen in the activity room eating breakfast. In my interview with the patient, she continues to be mute but nods yes or no when asked questions. She denies any current suicidal/homicidal ideation and denies hallucinations. Per nurse, "Pt received relaxing in the bedroom. Pt is mute and not responding to questions. No sign of pain and no acute distress observed." Treatment plan: Increase Depakote to 500MG po bid. 04/03/2021: The patient was seen resting in bed. Patient continues to be mute communicates via nods and when asked to come to breakfast she got off her bed and walked towards the activity room for breakfast. The nods ok for mood . She nods good for sleep and appetite. She denies any current suicidal ideation and denies hallucinations. Per nurse, "Patient continues to be isolative, and selectively mute. When asked how she was feeling and did she have any thoughts of harming herself or others, patient did not answer but stared at nurse blinking as if in response to questions being asked. Patient was compliant with medication except Fish oil which she refused. Patient did verbaly respond when asked if she would like a sandwich to which she replied just some crackers. Patient remains in room." 04/04/2021: The patient was seen in the activity room eating breakfast, she continues to be isolative but was verbal today. She reports mood as "good." The patient states sleep and appetite as good. she denies any current suicidal/homicidal thoughts and denies hallucinations. Per nurse, " pt refused all bedtime medication, she said it makes her sick, good appetite, no distress noted, will continue to monitor for safety. " No changes made today. 04/05/2021: The patient was seen in the activity eating breakfast, she is calm with good eye contact, nonverbal but nods to questions. She nods to sleep and appetite as good. She denies any current suicidal/homicidal ideation and denies hallucinations. Per nurse, "Pt in day room sitting quietly with no interaction with peers. Pt is mute responding to questions with nodding or shaking of head. No acute distress observed." No changes made today. REVIEW OF SYSTEMS Constitutional: Negative for weight loss ENT: Negative for stridor Respiratory: Negative for cough or hemoptysis All other systems reviewed and are negative MENTAL STATUS EXAMINATION General Appearance and Behavior: Age appropriate, wearing appropriate clothes, cooperative, polite with questioning, fair eye contact, calm Cooperation: cooperative Psychomotor Behavior: Psychomotor normal Mood: okay Affect and affective range: congruent with stated mood Thought Process: Withdrawn Thought Content: Not SI Speech:mute Suicidal Ideation: Denies Homicidal Ideation: Denies Hallucination: Denies Delusions: None elicited Impulse Control: Limited Insight and Judgment: Limited Memory: Limited Attention: Normal Orientation: Alert and oriented Diagnoses: Schizoaffective Disorder Treatment Plan Patient admitted for inpatient psychiatric evaluation, medication adjustment and close monitoring The patient's behavior, mood, sleep and appetite will be closely monitored. Patient enrolled in individual and group therapeutic sessions and encouraged to attend. Patient provided with a safe and structured environment. Patient's physical health needs will be addressed by the Hospitalist. Hospitalist Consulted Labs including CBC, CMP, Lipid profile and Hemoglobin A1C levels ordered for baseline reference Social Assessment will be completed and the It Field Technician will work with patient and family to ensure a suitable and safe disposition Medication adjustment will be made as clinically indicated No changes made today. Continue home medications Continue Depakote- 500mg po BID Usual Wellness Religion/Preservation: - Start Trazodone 50 mg po QHS & 50 mg po QHS PRN between 10 PM & 2 AM for insomnia - Start Melatonin 5 mg po QHS to promote circadian rhythm The patient agreed on the treatment plan, understood the risk, benefit, alternative treatment, potential consequence of no treatment, and gave informed consent. Estimated days: 6 Post hospital care: primary care provider, psychiatric provider Case staffed with Dr. Schmid Legal Status: Involuntary Legal Status: Voluntary Patient Problems: Current Active Problems Schizoaffective disorder (Acute) Reaction to Hospitalization: Accepting Medications and Allergies Assessment and Plan - Patient Problems (1) Schizoaffective disorder Current Visit: Yes Status: Acute Medications and Allergies Assessment and Plan - Patient Problems (1) Schizoaffective disorder Current Visit: Yes Status: Chronic Qualifiers: Schizoaffective disorder type: depressive Qualified Code(s): F25.1 - Schizoaffective disorder, depressive type Medications and Allergies Assessment and Plan - Patient Problems (1) Schizoaffective disorder Current Visit: Yes Status: Chronic Qualifiers: Schizoaffective disorder type: depressive Qualified Code(s): F25.1 - Schizoaffective disorder, depressive type Medications and Allergie Assessment and Plan - Patient Problems (1) Schizoaffective disorder Current Visit: Yes Status: Chronic Qualifiers: Schizoaffective disorder type: depressive Qualified Code(s): F25.1 - Schizoaffective disorder, depressive type Medications and Allergies Allergies Allergy/AdvReac Type Severity Reaction Status Date / Time azithromycin Allergy Unknown Verified 04/03/21 10:28 diphenhydramine Allergy Unknown Verified 04/03/21 10:28 [From Benadryl] haloperidol [From Haldol] Allergy Unknown Verified 04/03/21 10:28 Penicillins Allergy Unknown Verified 04/03/21 10:28 sulfamethoxazole Allergy Unknown Verified 04/03/21 10:28 trimethoprim Allergy Unknown Verified 04/03/21 10:28 Home Medications Medication Instructions Recorded Confirmed Last Taken Type ALPRAZolam [Xanax TAB] 1 mg PO TID PRN 10/18/20 03/31/21 Unknown History Albuterol Sulfate [Proair 90 mcg IH Q4HR 10/18/20 03/31/21 Unknown History Digihaler] Cyclobenzaprine [Flexeril 10 MG 10 mg PO TID PRN 10/18/20 03/31/21 Unknown History TAB] Ketorolac [Toradol] 10 mg PO Q6HR PRN 10/18/20 03/31/21 Unknown History Naproxen 500 mg PO BID 10/18/20 03/31/21 Unknown History Omeprazole 40 mg PO DAILY 10/18/20 03/31/21 Unknown History Divalproex [Phoebe Maloney] 125 mg PO BID #60 tablet 10/25/20 03/31/21 Unknown Rx Melatonin [Melatonin 5MG TAB] 5 mg PO QHS PRN #30 tablet 10/25/20 03/31/21 Unknown Rx Nicotine [Habitrol] 14 mg TD QDAY #30 patch 10/25/20 03/31/21 Unknown Rx [place]-3 Fatty Acids/Fish Oil [Fish 2,000 mg PO BID #120 capsule 10/25/20 03/31/21 Unknown Rx Oil] traZODone [Desyrel] 50 mg PO QHS #30 tablet 10/25/20 03/31/21 Unknown Rx OLANzapine [ZyPREXA] 10 mg PO BID 03/31/21 03/31/21 Unknown History hydrOXYzine PAMOATE [Vistaril] 50 mg PO BID 03/31/21 03/31/21 Unknown History Active Meds: Active Medications Divalproex Sodium (Divalproex Dr 500 Mg Tab) 500 mg PO BID [facility] Last Admin: 04/04/21 21:18 Dose: 500 mg Documented by: Fish Oil ([place]-3 Fatty Acids/Fish Oil 1 Gram Cap) 2,000 mg PO BID [facility] Last Admin: 04/04/21 21:17 Dose: 2,000 mg Documented by: Hydroxyzine Pamoate (Hydroxyzine Pamoate 50 Mg Cap) 50 mg PO BID [facility] Last Admin: 04/04/21 21:17 Dose: 50 mg Documented by: Melatonin (Melatonin 5 Mg Tab) 5 mg PO QHS PRN PRN Reason: Sleep Olanzapine (Olanzapine 10 Mg Tab) 10 mg PO BID [facility] Last Admin: 04/04/21 21:17 Dose: 10 mg Documented by: Pantoprazole Sodium (Pantoprazole 40 Mg Tab) 40 mg PO DAILY [facility] Last Admin: 04/04/21 10:00 Dose: 40 mg Documented by: Trazodone HCl (Trazodone 50 Mg Tab) 50 mg PO QHS [facility] Last Admin: 04/04/21 21:17 Dose: 50 mg Documented by: Results - Results Labs/Vitals: Laboratory Last Values WBC 5.7 K/mm3 (4.5-11.0) 04/03/21 08:00 RBC 4.97 M/mm3 (3.65-5.03) 04/03/21 08:00 Hgb 15.3 gm/dl (10.1-14.3) H 04/03/21 08:00 Hct 44.1 % (30.3-42.9) H 04/03/21 08:00 MCV 89 fl (79-97) 04/03/21 08:00 MCH 31 pg (28-32) 04/03/21 08:00 MCHC 35 % (30-34) H 04/03/21 08:00 RDW 13.5 % (13.2-15.2) 04/03/21 08:00 Plt Count 241 K/mm3 (140-440) 04/03/21 08:00 Lymph % (Auto) 42.4 % (13.4-35.0) H 04/03/21 08:00 [place] % (Auto) 6.0 % (0.0-7.3) 04/03/21 08:00 Eos % (Auto) 4.0 % (0.0-4.3) 04/03/21 08:00 Baso % (Auto) 0.8 % (0.0-1.8) 04/03/21 08:00 Lymph # (Auto) 2.4 K/mm3 (1.2-5.4) 04/03/21 08:00 [place] # (Auto) 0.3 K/mm3 (0.0-0.8) 04/03/21 08:00 Eos # (Auto) 0.2 K/mm3 (0.0-0.4) 04/03/21 08:00 Baso # (Auto) 0.0 K/mm3 (0.0-0.1) 04/03/21 08:00 Seg Neutrophils % 46.8 % (40.0-70.0) 04/03/21 08:00 Seg Neutrophils # 2.7 K/mm3 (1.8-7.7) 04/03/21 08:00 Sodium 142 mmol/L (137-145) 04/03/21 08:00 Potassium 4.0 mmol/L (3.6-5.0) 04/03/21 08:00 Chloride 105.9 mmol/L (98-107) 04/03/21 08:00 Carbon Dioxide 23 mmol/L (22-30) 04/03/21 08:00 Anion Gap 17 mmol/L 04/03/21 08:00 BUN 17 mg/dL (7-17) 04/03/21 08:00 Creatinine 0.5 mg/dL (0.6-1.2) L 04/03/21 08:00 Estimated GFR > 60 ml/min 04/03/21 08:00 BUN/Creatinine Ratio 34 % 04/03/21 08:00 Glucose 116 mg/dL (65-100) H 04/03/21 08:00 POC Glucose 129 mg/dL (70-105) H 04/01/21 02:11 Calcium 9.2 mg/dL (8.4-10.2) 04/03/21 08:00 Total Bilirubin 0.30 mg/dL (0.1-1.2) 04/03/21 08:00 AST 20 units/L (5-40) 04/03/21 08:00 ALT 19 units/L (7-56) 04/03/21 08:00 Alkaline Phosphatase 105 units/L (35-129) 04/03/21 08:00 Total Protein 6.5 g/dL (6.3-8.2) 04/03/21 08:00 Albumin 3.8 g/dL (3.9-5) L 04/03/21 08:00 Albumin/Globulin Ratio 1.4 % 04/03/21 08:00 Triglycerides 93 mg/dL (2-149) 04/03/21 08:00 Cholesterol 158 mg/dL (50-199) 04/03/21 08:00 LDL Cholesterol Direct 112 mg/dL (50-130) 04/03/21 08:00 HDL Cholesterol 38 mg/dL (40-59) L 04/03/21 08:00 Cholesterol/HDL Ratio 4.15 % 04/03/21 08:00 TSH 1.640 mlU/mL (0.270-4.200) 04/03/21 08:00 Hepatitis A IgM Ab Non-reactive (NonReactive) 04/03/21 08:00 Hep Bs Antigen Non-reactive (Negative) 04/03/21 08:00 Hep B Core IgM Ab Non-reactive (NonReactive) 04/03/21 08:00 Hepatitis C Antibody Reactive (NonReactive) A 04/03/21 08:00 Last Vital Signs Temp 99.0 F 04/04/21 19:07 Pulse 76 04/04/21 19:07 Resp 16 04/04/21 19:07 BP 104/71 04/04/21 19:07 Pulse Ox 94 04/04/21 19:07
[2021-04-05] MEDS: OMEGA-3 FATTY ACIDS/FISH OIL 1 GRAM CAP PO SCH ×2 (09:05→21:15)
[2021-04-05] MEDS: PANTOPRAZOLE 40 MG TAB PO SCH (09:06)
[2021-04-05] MEDS: DIVALPROEX DR 500 MG TAB PO SCH ×2 (09:06→21:14)
[2021-04-05] MEDS: traZODone 50 MG TAB PO SCH (21:14)
--- NOTE | 2021-04-06 08:39 | Progress Note ---
Subjective Date of service: 04/06/21 Subjective Comment: 04/02/2021: The patient was seen in the activity room eating breakfast. In my interview with the patient, she continues to be mute but nods yes or no when asked questions. She denies any current suicidal/homicidal ideation and denies hallucinations. Per nurse, "Pt received relaxing in the bedroom. Pt is mute and not responding to questions. No sign of pain and no acute distress observed." Treatment plan: Increase Depakote to 500MG po bid. 04/03/2021: The patient was seen resting in bed. Patient continues to be mute communicates via nods and when asked to come to breakfast she got off her bed and walked towards the activity room for breakfast. The nods ok for mood . She nods good for sleep and appetite. She denies any current suicidal ideation and denies hallucinations. Per nurse, "Patient continues to be isolative, and selectively mute. When asked how she was feeling and did she have any thoughts of harming herself or others, patient did not answer but stared at nurse blinking as if in response to questions being asked. Patient was compliant with medication except Fish oil which she refused. Patient did verbaly respond when asked if she would like a sandwich to which she replied just some crackers. Patient remains in room." 04/04/2021: The patient was seen in the activity room eating breakfast, she continues to be isolative but was verbal today. She reports mood as "good." The patient states sleep and appetite as good. she denies any current suicidal/homicidal thoughts and denies hallucinations. Per nurse, " pt refused all bedtime medication, she said it makes her sick, good appetite, no distress noted, will continue to monitor for safety. " No changes made today. 04/05/2021: The patient was seen in the activity eating breakfast, she is calm with good eye contact, nonverbal but nods to questions. She nods to sleep and appetite as good. She denies any current suicidal/homicidal ideation and denies hallucinations. Per nurse, "Pt in day room sitting quietly with no interaction with peers. Pt is mute responding to questions with nodding or shaking of head. No acute distress observed." No changes made today. 04/06/2021: The patient was seen resting in bed quietly. The patient is verbal today, she reports mood as " alright" she states she feel better. She reports sleep and appetite ad good. The patient denies any current suicidal/homicidal ideation and denies hallucinations. Per nurse, "Last evening the patient divided her time between the activity room and her room. She presents as irritable. She also presents as mildly confused. Her appetite is fair. She was irritable when this story writer started explaining her medications to her. She held them for a moment before swallowing all of them. She refused to become engaged in conversation. Overnight the patient rested quietly. She slept 8 hours." Per nurse, patient refused valproic acid draw this morning. No changes made today. REVIEW OF SYSTEMS Constitutional: Negative for weight loss ENT: Negative for stridor Respiratory: Negative for cough or hemoptysis All other systems reviewed and are negative MENTAL STATUS EXAMINATION General Appearance and Behavior: Age appropriate, wearing appropriate clothes, cooperative, polite with questioning, fair eye contact, calm Cooperation: cooperative Psychomotor Behavior: Psychomotor normal Mood: "alright" Affect and affective range: congruent with stated mood Thought Process: Withdrawn Thought Content: Not SI Speech:Normal Suicidal Ideation: Denies Homicidal Ideation: Denies Hallucination: Denies Delusions: None elicited Impulse Control: Limited Insight and Judgment: Limited Memory: Normal Attention: Normal Orientation: Alert and oriented Diagnoses: Schizoaffective Disorder Treatment Plan Patient admitted for inpatient psychiatric evaluation, medication adjustment and close monitoring The patient's behavior, mood, sleep and appetite will be closely monitored. Patient enrolled in individual and group therapeutic sessions and encouraged to attend. Patient provided with a safe and structured environment. Patient's physical health needs will be addressed by the Hospitalist. Hospitalist Consulted Labs including CBC, CMP, Lipid profile and Hemoglobin A1C levels ordered for baseline reference Social Assessment will be completed and the Public Policy Manager will work with patient and family to ensure a suitable and safe disposition Medication adjustment will be made as clinically indicated No changes made today.- Patient refused Valproic acid draw this morning. Continue home medications Continue Depakote- 500mg po BID Usual Wellness [employer]/Preservation: - Start Trazodone 50 mg po QHS & 50 mg po QHS PRN between 10 PM & 2 AM for insomnia - Start Melatonin 5 mg po QHS to promote circadian rhythm The patient agreed on the treatment plan, understood the risk, benefit, alternative treatment, potential consequence of no treatment, and gave informed consent. Estimated days: 6 Post hospital care: primary care provider, psychiatric provider Case staffed with Dr. Schmid Legal Status: Involuntary Legal Status: Voluntary Assessment and Plan - Patient Problems (1) Schizoaffective disorder Current Visit: Yes Status: Chronic Qualifiers: Schizoaffective disorder type: depressive Qualified Code(s): F25.1 - Schizoaffective disorder, depressive type Medications and Allergies Allergies Allergy/AdvReac Type Severity Reaction Status Date / Time azithromycin Allergy Unknown Verified 04/03/21 10:28 diphenhydramine Allergy Unknown Verified 04/03/21 10:28 [From Benadryl] haloperidol [From Haldol] Allergy Unknown Verified 04/03/21 10:28 Penicillins Allergy Unknown Verified 04/03/21 10:28 sulfamethoxazole Allergy Unknown Verified 04/03/21 10:28 trimethoprim Allergy Unknown Verified 04/03/21 10:28 Home Medications Medication Instructions Recorded Confirmed Last Taken Type ALPRAZolam [Xanax TAB] 1 mg PO TID PRN 10/18/20 03/31/21 Unknown History Albuterol Sulfate [Proair 90 mcg IH Q4HR 10/18/20 03/31/21 Unknown History Digihaler] Cyclobenzaprine [Flexeril 10 MG 10 mg PO TID PRN 10/18/20 03/31/21 Unknown History TAB] Ketorolac [Toradol] 10 mg PO Q6HR PRN 10/18/20 03/31/21 Unknown History Naproxen 500 mg PO BID 10/18/20 03/31/21 Unknown History Omeprazole 40 mg PO DAILY 10/18/20 03/31/21 Unknown History Divalproex [Phoebe Maloney] 125 mg PO BID #60 tablet 10/25/20 03/31/21 Unknown Rx Melatonin [Melatonin 5MG TAB] 5 mg PO QHS PRN #30 tablet 10/25/20 03/31/21 Unknown Rx Nicotine [Habitrol] 14 mg TD QDAY #30 patch 10/25/20 03/31/21 Unknown Rx [place]-3 Fatty Acids/Fish Oil [Fish 2,000 mg PO BID #120 capsule 10/25/20 03/31/21 Unknown Rx Oil] traZODone [Desyrel] 50 mg PO QHS #30 tablet 10/25/20 03/31/21 Unknown Rx OLANzapine [ZyPREXA] 10 mg PO BID 03/31/21 03/31/21 Unknown History hydrOXYzine PAMOATE [Vistaril] 50 mg PO BID 03/31/21 03/31/21 Unknown History Active Meds: Active Medications Divalproex Sodium (Divalproex Dr 500 Mg Tab) 500 mg PO BID [facility] Last Admin: 04/05/21 21:14 Dose: 500 mg Documented by: Fish Oil ([place]-3 Fatty Acids/Fish Oil 1 Gram Cap) 2,000 mg PO BID [facility] Last Admin: 04/05/21 21:15 Dose: Not Given Documented by: Hydroxyzine Pamoate (Hydroxyzine Pamoate 50 Mg Cap) 50 mg PO BID [facility] Last Admin: 04/05/21 21:15 Dose: 50 mg Documented by: Melatonin (Melatonin 5 Mg Tab) 5 mg PO QHS PRN PRN Reason: Sleep Last Admin: 04/05/21 21:16 Dose: 5 mg Documented by: Olanzapine (Olanzapine 10 Mg Tab) 10 mg PO BID [facility] Last Admin: 04/05/21 21:16 Dose: 10 mg Documented by: Pantoprazole Sodium (Pantoprazole 40 Mg Tab) 40 mg PO DAILY [facility] Last Admin: 04/05/21 09:06 Dose: 40 mg Documented by: Trazodone HCl (Trazodone 50 Mg Tab) 50 mg PO QHS [facility] Last Admin: 04/05/21 21:14 Dose: 50 mg Documented by: Results - Results Labs/Vitals: Laboratory Last Values WBC 5.7 K/mm3 (4.5-11.0) 04/03/21 08:00 RBC 4.97 M/mm3 (3.65-5.03) 04/03/21 08:00 Hgb 15.3 gm/dl (10.1-14.3) H 04/03/21 08:00 Hct 44.1 % (30.3-42.9) H 04/03/21 08:00 MCV 89 fl (79-97) 04/03/21 08:00 MCH 31 pg (28-32) 04/03/21 08:00 MCHC 35 % (30-34) H 04/03/21 08:00 RDW 13.5 % (13.2-15.2) 04/03/21 08:00 Plt Count 241 K/mm3 (140-440) 04/03/21 08:00 Lymph % (Auto) 42.4 % (13.4-35.0) H 04/03/21 08:00 [place] % (Auto) 6.0 % (0.0-7.3) 04/03/21 08:00 Eos % (Auto) 4.0 % (0.0-4.3) 04/03/21 08:00 Baso % (Auto) 0.8 % (0.0-1.8) 04/03/21 08:00 Lymph # (Auto) 2.4 K/mm3 (1.2-5.4) 04/03/21 08:00 [place] # (Auto) 0.3 K/mm3 (0.0-0.8) 04/03/21 08:00 Eos # (Auto) 0.2 K/mm3 (0.0-0.4) 04/03/21 08:00 Baso # (Auto) 0.0 K/mm3 (0.0-0.1) 04/03/21 08:00 Seg Neutrophils % 46.8 % (40.0-70.0) 04/03/21 08:00 Seg Neutrophils # 2.7 K/mm3 (1.8-7.7) 04/03/21 08:00 Sodium 142 mmol/L (137-145) 04/03/21 08:00 Potassium 4.0 mmol/L (3.6-5.0) 04/03/21 08:00 Chloride 105.9 mmol/L (98-107) 04/03/21 08:00 Carbon Dioxide 23 mmol/L (22-30) 04/03/21 08:00 Anion Gap 17 mmol/L 04/03/21 08:00 BUN 17 mg/dL (7-17) 04/03/21 08:00 Creatinine 0.5 mg/dL (0.6-1.2) L 04/03/21 08:00 Estimated GFR > 60 ml/min 04/03/21 08:00 BUN/Creatinine Ratio 34 % 04/03/21 08:00 Glucose 116 mg/dL (65-100) H 04/03/21 08:00 POC Glucose 129 mg/dL (70-105) H 04/01/21 02:11 Calcium 9.2 mg/dL (8.4-10.2) 04/03/21 08:00 Total Bilirubin 0.30 mg/dL (0.1-1.2) 04/03/21 08:00 AST 20 units/L (5-40) 04/03/21 08:00 ALT 19 units/L (7-56) 04/03/21 08:00 Alkaline Phosphatase 105 units/L (35-129) 04/03/21 08:00 Total Protein 6.5 g/dL (6.3-8.2) 04/03/21 08:00 Albumin 3.8 g/dL (3.9-5) L 04/03/21 08:00 Albumin/Globulin Ratio 1.4 % 04/03/21 08:00 Triglycerides 93 mg/dL (2-149) 04/03/21 08:00 Cholesterol 158 mg/dL (50-199) 04/03/21 08:00 LDL Cholesterol Direct 112 mg/dL (50-130) 04/03/21 08:00 HDL Cholesterol 38 mg/dL (40-59) L 04/03/21 08:00 Cholesterol/HDL Ratio 4.15 % 04/03/21 08:00 TSH 1.640 mlU/mL (0.270-4.200) 04/03/21 08:00 Hepatitis A IgM Ab Non-reactive (NonReactive) 04/03/21 08:00 Hep Bs Antigen Non-reactive (Negative) 04/03/21 08:00 Hep B Core IgM Ab Non-reactive (NonReactive) 04/03/21 08:00 Hepatitis C Antibody Reactive (NonReactive) A 04/03/21 08:00 Last Vital Signs Temp 97.8 F 04/06/21 07:46 Pulse 77 04/06/21 07:46 Resp 18 04/06/21 07:46 BP 111/75 04/06/21 07:46 Pulse Ox 96 04/06/21 07:46
[2021-04-06] MEDS: PANTOPRAZOLE 40 MG TAB PO SCH (09:16)
[2021-04-06] MEDS: DIVALPROEX DR 500 MG TAB PO SCH ×2 (09:17→21:37)
[2021-04-06] MEDS: OMEGA-3 FATTY ACIDS/FISH OIL 1 GRAM CAP PO SCH ×2 (09:17→21:37)
[2021-04-06] MEDS: traZODone 50 MG TAB PO SCH (21:36)
--- NOTE | 2021-04-07 09:28 | Progress Note ---
Subjective Date of service: 04/07/21 Principal diagnosis: schizophrenia Subjective Comment: The patient was seen today. She says she did not sleep good. She then stares intensely at me for a minute. She denies SI/HI or hallucinations of any kind. Nursing staff at times the patient is mute. Will adjust medications to improve sleep pattern. REVIEW OF SYSTEMS Constitutional: Negative for weight loss ENT: Negative for stridor Respiratory: Negative for cough or hemoptysis All other systems reviewed and are negative MENTAL STATUS EXAMINATION General Appearance and Behavior: Age appropriate, wearing appropriate clothes, cooperative, polite with questioning, fair eye contact, calm Cooperation: cooperative Psychomotor Behavior: Psychomotor normal Mood: "alright" Affect and affective range: congruent with stated mood Thought Process: Withdrawn Thought Content: Not SI Speech: Normal tone and pace Suicidal Ideation: Denies Homicidal Ideation: Denies Hallucination: Denies Delusions: None elicited Impulse Control: Limited Insight and Judgment: Limited Memory: Normal Attention: Normal Orientation: Alert and oriented Diagnoses: Schizoaffective Disorder Treatment Plan Patient admitted for inpatient psychiatric evaluation, medication adjustment and close monitoring The patient's behavior, mood, sleep and appetite will be closely monitored. Patient enrolled in individual and group therapeutic sessions and encouraged to attend. Patient provided with a safe and structured environment. Patient's physical health needs will be addressed by the Hospitalist. Hospitalist Consulted Labs including CBC, CMP, Lipid profile and Hemoglobin A1C levels ordered for baseline reference Social Assessment will be completed and the Director Outpatient Services will work with patient and family to ensure a suitable and safe disposition Medication adjustment will be made as clinically indicated Increase Trazodone 75mg po qhs Usual Wellness [employer]/Preservation: - Start Trazodone 50 mg po QHS & 50 mg po QHS PRN between 10 PM & 2 AM for insomnia - Start Melatonin 5 mg po QHS to promote circadian rhythm The patient agreed on the treatment plan, understood the risk, benefit, alternative treatment, potential consequence of no treatment, and gave informed consent. Estimated days: 6 Post hospital care: primary care provider, psychiatric provider Case staffed with Dr. Schmid Medications and Allergies Allergies Allergy/AdvReac Type Severity Reaction Status Date / Time azithromycin Allergy Unknown Verified 04/03/21 10:28 diphenhydramine Allergy Unknown Verified 04/03/21 10:28 [From Benadryl] haloperidol [From Haldol] Allergy Unknown Verified 04/03/21 10:28 Penicillins Allergy Unknown Verified 04/03/21 10:28 sulfamethoxazole Allergy Unknown Verified 04/03/21 10:28 trimethoprim Allergy Unknown Verified 04/03/21 10:28 Home Medications Medication Instructions Recorded Confirmed Last Taken Type ALPRAZolam [Xanax TAB] 1 mg PO TID PRN 10/18/20 03/31/21 Unknown History Albuterol Sulfate [Proair 90 mcg IH Q4HR 10/18/20 03/31/21 Unknown History Digihaler] Cyclobenzaprine [Flexeril 10 MG 10 mg PO TID PRN 10/18/20 03/31/21 Unknown History TAB] Ketorolac [Toradol] 10 mg PO Q6HR PRN 10/18/20 03/31/21 Unknown History Naproxen 500 mg PO BID 10/18/20 03/31/21 Unknown History Omeprazole 40 mg PO DAILY 10/18/20 03/31/[address] [Phoebe Maloney] 125 mg PO BID #60 tablet 10/25/20 03/31/21 Unknown Rx Melatonin [Melatonin 5MG TAB] 5 mg PO QHS PRN #30 tablet 10/25/20 03/31/21 Unknown Rx Nicotine [Habitrol] 14 mg TD QDAY #30 patch 10/25/20 03/31/21 Unknown Rx [place]-3 Fatty Acids/Fish Oil [Fish 2,000 mg PO BID #120 capsule 10/25/20 03/31/21 Unknown Rx Oil] traZODone [Desyrel] 50 mg PO QHS #30 tablet 10/25/20 03/31/21 Unknown Rx OLANzapine [ZyPREXA] 10 mg PO BID 03/31/21 03/31/21 Unknown History hydrOXYzine PAMOATE [Vistaril] 50 mg PO BID 03/31/21 03/31/21 Unknown History Active Meds: Active Medications Divalproex Sodium (Divalproex Dr 500 Mg Tab) 500 mg PO BID [facility] Last Admin: 04/06/21 21:37 Dose: 500 mg Documented by: Fish Oil ([place]-3 Fatty Acids/Fish Oil 1 Gram Cap) 2,000 mg PO BID [facility] Last Admin: 04/06/21 21:37 Dose: 2,000 mg Documented by: Hydroxyzine Pamoate (Hydroxyzine Pamoate 50 Mg Cap) 50 mg PO BID [facility] Last Admin: 04/06/21 21:37 Dose: 50 mg Documented by: Melatonin (Melatonin 5 Mg Tab) 5 mg PO QHS PRN PRN Reason: Sleep Last Admin: 04/05/21 21:16 Dose: 5 mg Documented by: Olanzapine (Olanzapine 10 Mg Tab) 10 mg PO BID [facility] Last Admin: 04/06/21 21:36 Dose: 10 mg Documented by: Pantoprazole Sodium (Pantoprazole 40 Mg Tab) 40 mg PO DAILY [facility] Last Admin: 04/06/21 09:16 Dose: 40 mg Documented by: Trazodone HCl (Trazodone 50 Mg Tab) 50 mg PO QHS [facility] Last Admin: 04/06/21 21:36 Dose: 50 mg Documented by: Results - Results Labs/Vitals: Laboratory Last Values WBC 5.7 K/mm3 (4.5-11.0) 04/03/21 08:00 RBC 4.97 M/mm3 (3.65-5.03) 04/03/21 08:00 Hgb 15.3 gm/dl (10.1-14.3) H 04/03/21 08:00 Hct 44.1 % (30.3-42.9) H 04/03/21 08:00 MCV 89 fl (79-97) 04/03/21 08:00 MCH 31 pg (28-32) 04/03/21 08:00 MCHC 35 % (30-34) H 04/03/21 08:00 RDW 13.5 % (13.2-15.2) 04/03/21 08:00 Plt Count 241 K/mm3 (140-440) 04/03/21 08:00 Lymph % (Auto) 42.4 % (13.4-35.0) H 04/03/21 08:00 [place] % (Auto) 6.0 % (0.0-7.3) 04/03/21 08:00 Eos % (Auto) 4.0 % (0.0-4.3) 04/03/21 08:00 Baso % (Auto) 0.8 % (0.0-1.8) 04/03/21 08:00 Lymph # (Auto) 2.4 K/mm3 (1.2-5.4) 04/03/21 08:00 [place] # (Auto) 0.3 K/mm3 (0.0-0.8) 04/03/21 08:00 Eos # (Auto) 0.2 K/mm3 (0.0-0.4) 04/03/21 08:00 Baso # (Auto) 0.0 K/mm3 (0.0-0.1) 04/03/21 08:00 Seg Neutrophils % 46.8 % (40.0-70.0) 04/03/21 08:00 Seg Neutrophils # 2.7 K/mm3 (1.8-7.7) 04/03/21 08:00 Sodium 142 mmol/L (137-145) 04/03/21 08:00 Potassium 4.0 mmol/L (3.6-5.0) 04/03/21 08:00 Chloride 105.9 mmol/L (98-107) 04/03/21 08:00 Carbon Dioxide 23 mmol/L (22-30) 04/03/21 08:00 Anion Gap 17 mmol/L 04/03/21 08:00 BUN 17 mg/dL (7-17) 04/03/21 08:00 Creatinine 0.5 mg/dL (0.6-1.2) L 04/03/21 08:00 Estimated GFR > 60 ml/min 04/03/21 08:00 BUN/Creatinine Ratio 34 % 04/03/21 08:00 Glucose 116 mg/dL (65-100) H 04/03/21 08:00 POC Glucose 129 mg/dL (70-105) H 04/01/21 02:11 Calcium 9.2 mg/dL (8.4-10.2) 04/03/21 08:00 Total Bilirubin 0.30 mg/dL (0.1-1.2) 04/03/21 08:00 AST 20 units/L (5-40) 04/03/21 08:00 ALT 19 units/L (7-56) 04/03/21 08:00 Alkaline Phosphatase 105 units/L (35-129) 04/03/21 08:00 Total Protein 6.5 g/dL (6.3-8.2) 04/03/21 08:00 Albumin 3.8 g/dL (3.9-5) L 04/03/21 08:00 Albumin/Globulin Ratio 1.4 % 04/03/21 08:00 Triglycerides 93 mg/dL (2-149) 04/03/21 08:00 Cholesterol 158 mg/dL (50-199) 04/03/21 08:00 LDL Cholesterol Direct 112 mg/dL (50-130) 04/03/21 08:00 HDL Cholesterol 38 mg/dL (40-59) L 04/03/21 08:00 Cholesterol/HDL Ratio 4.15 % 04/03/21 08:00 TSH 1.640 mlU/mL (0.270-4.200) 04/03/21 08:00 Valproic Acid 65.6 ug/mL (50-100) 04/06/21 23:22 Hepatitis A IgM Ab Non-reactive (NonReactive) 04/03/21 08:00 Hep Bs Antigen Non-reactive (Negative) 04/03/21 08:00 Hep B Core IgM Ab Non-reactive (NonReactive) 04/03/21 08:00 Hepatitis C Antibody Reactive (NonReactive) A 04/03/21 08:00 Last Vital Signs Temp 98.4 F 04/06/21 20:29 Pulse 78 04/06/21 20:29 Resp 16 04/06/21 20:29 BP 99/64 04/06/21 20:29 Pulse Ox 95 04/06/21 20:29
[2021-04-07] MEDS: OMEGA-3 FATTY ACIDS/FISH OIL 1 GRAM CAP PO SCH ×2 (09:32→21:14)
[2021-04-07] MEDS: DIVALPROEX DR 500 MG TAB PO SCH ×2 (09:32→21:15)
[2021-04-07] MEDS: PANTOPRAZOLE 40 MG TAB PO SCH (09:32)
--- NOTE | 2021-04-07 14:30 | Progress Note ---
Assessment and Plan Assessment and plan: -- Asthma Current Visit: Yes Status: Chronic : Albuterol MDI as needed and nebulizer treatments as needed --GERD (gastroesophageal reflux disease) Current Visit: Yes Status: Chronic Continue PPIs --Schizoaffective disorder Current Visit: Yes Status: Chronic Defer to psychiatry --Obesity Current Visit: Yes Status: Chronic Patient needs weight reduction when medically stable -- DVT prophylaxis Current Visit: Yes Status: Acute SCDs while resting Continue current management Closely monitor the patient and adjust the management as needed Plan of care reviewed with the patient's nurse History Interval history: I have seen and examined the patient at the bedside Patient's chart and medications reviewed Patient is in room very quiet not acknowledging this physician. Not in acute distress. Selectively communicative Vital signs noted Hospitalist Physical - Physical exam Narrative exam: General appearance: Present: no acute distress, well-nourished, selectively communicative. Shrugs shoulders to answer yes or no, mostly no - EENT Eyes: Present: PERRL, EOM intact - Neck Neck: Present: supple, normal ROM - Respiratory Respiratory effort: normal Respiratory: bilateral: diminished, negative: rales, rhonchi, wheezing - Cardiovascular Rhythm: regular Heart Sounds: Present: S1 & S2 - Extremities Extremities: no ischemia, No edema - Abdominal General gastrointestinal: soft, non-tender, non-distended, normal bowel sounds - Integumentary Integumentary: Present: clear, warm - Psychiatric Psychiatric: appropriate mood/affect, cooperative - Neurologic Neurologic: CNII-XII intact, moves all extremities - Constitutional Vitals: Temp Pulse Resp BP Pulse Ox 97.6 F 74 19 94/66 96 04/07/21 09:11 04/07/21 09:11 04/07/21 09:11 04/07/21 09:11 04/07/21 09:11 General appearance: Present: no acute distress, well-nourished, other (Noncommunicative) Results - Labs CBC & Chem 7: 04/03/21 08:00 04/03/21 08:00 Labs: Laboratory Last Values WBC 5.7 K/mm3 (4.5-11.0) 04/03/21 08:00 RBC 4.97 M/mm3 (3.65-5.03) 04/03/21 08:00 Hgb 15.3 gm/dl (10.1-14.3) H 04/03/21 08:00 Hct 44.1 % (30.3-42.9) H 04/03/21 08:00 MCV 89 fl (79-97) 04/03/21 08:00 MCH 31 pg (28-32) 04/03/21 08:00 MCHC 35 % (30-34) H 04/03/21 08:00 RDW 13.5 % (13.2-15.2) 04/03/21 08:00 Plt Count 241 K/mm3 (140-440) 04/03/21 08:00 Lymph % (Auto) 42.4 % (13.4-35.0) H 04/03/21 08:00 [place] % (Auto) 6.0 % (0.0-7.3) 04/03/21 08:00 Eos % (Auto) 4.0 % (0.0-4.3) 04/03/21 08:00 Baso % (Auto) 0.8 % (0.0-1.8) 04/03/21 08:00 Lymph # (Auto) 2.4 K/mm3 (1.2-5.4) 04/03/21 08:00 [place] # (Auto) 0.3 K/mm3 (0.0-0.8) 04/03/21 08:00 Eos # (Auto) 0.2 K/mm3 (0.0-0.4) 04/03/21 08:00 Baso # (Auto) 0.0 K/mm3 (0.0-0.1) 04/03/21 08:00 Seg Neutrophils % 46.8 % (40.0-70.0) 04/03/21 08:00 Seg Neutrophils # 2.7 K/mm3 (1.8-7.7) 04/03/21 08:00 Sodium 142 mmol/L (137-145) 04/03/21 08:00 Potassium 4.0 mmol/L (3.6-5.0) 04/03/21 08:00 Chloride 105.9 mmol/L (98-107) 04/03/21 08:00 Carbon Dioxide 23 mmol/L (22-30) 04/03/21 08:00 Anion Gap 17 mmol/L 04/03/21 08:00 BUN 17 mg/dL (7-17) 04/03/21 08:00 Creatinine 0.5 mg/dL (0.6-1.2) L 04/03/21 08:00 Estimated GFR > 60 ml/min 04/03/21 08:00 BUN/Creatinine Ratio 34 % 04/03/21 08:00 Glucose 116 mg/dL (65-100) H 04/03/21 08:00 POC Glucose 129 mg/dL (70-105) H 04/01/21 02:11 Calcium 9.2 mg/dL (8.4-10.2) 04/03/21 08:00 Total Bilirubin 0.30 mg/dL (0.1-1.2) 04/03/21 08:00 AST 20 units/L (5-40) 04/03/21 08:00 ALT 19 units/L (7-56) 04/03/21 08:00 Alkaline Phosphatase 105 units/L (35-129) 04/03/21 08:00 Total Protein 6.5 g/dL (6.3-8.2) 04/03/21 08:00 Albumin 3.8 g/dL (3.9-5) L 04/03/21 08:00 Albumin/Globulin Ratio 1.4 % 04/03/21 08:00 Triglycerides 93 mg/dL (2-149) 04/03/21 08:00 Cholesterol 158 mg/dL (50-199) 04/03/21 08:00 LDL Cholesterol Direct 112 mg/dL (50-130) 04/03/21 08:00 HDL Cholesterol 38 mg/dL (40-59) L 04/03/21 08:00 Cholesterol/HDL Ratio 4.15 % 04/03/21 08:00 TSH 1.640 mlU/mL (0.270-4.200) 04/03/21 08:00 Valproic Acid 65.6 ug/mL (50-100) 04/06/21 23:22 Hepatitis A IgM Ab Non-reactive (NonReactive) 04/03/21 08:00 Hep Bs Antigen Non-reactive (Negative) 04/03/21 08:00 Hep B Core IgM Ab Non-reactive (NonReactive) 04/03/21 08:00 Hepatitis C Antibody Reactive (NonReactive) A 04/03/21 08:00 [place]/IV: Voiding Method Toilet Active Medications - Current Medications Current Medications: Generic Name Dose Route Start Last Admin Trade Name Freq PRN Reason Stop Dose Admin Divalproex Sodium 500 mg 04/02/21 10:00 04/07/21 09:[address] 500 Mg Tab PO 500 mg BID CHARLETTE Administration Fish Oil 2,000 mg 04/01/21 10:00 04/07/21 09:32 [place]-3 Fatty Acids/Fish Oil 1 Gram Cap PO 2,000 mg BID CHARLETTE Administration Hydroxyzine Pamoate 50 mg 04/01/21 10:00 04/07/21 09:32 Hydroxyzine Pamoate 50 Mg Cap PO 50 mg BID [place]E Administration Melatonin 5 mg 04/01/21 22:00 04/05/21 21:16 Melatonin 5 Mg Tab PO 5 mg QHS PRN Administration Sleep Olanzapine 10 mg 04/01/21 10:00 04/07/21 09:32 Olanzapine 10 Mg Tab PO 10 mg BID CHARLETTE Administration Pantoprazole Sodium 40 mg 04/01/21 10:00 04/07/21 09:32 Pantoprazole 40 Mg Tab PO 40 mg DAILY [place]LETTE Administration Trazodone HCl 75 mg 04/07/21 22:00 Trazodone 50 Mg Tab PO QHS [facility] Nutrition/Malnutrition Assess - Dietary Evaluation Nutrition/Malnutrition Findings: Nutrition Notes Start: 04/07/21 08:01 Freq: Status: Active Protocol: Document 04/07/21 08:01 NEEMA (Rec: 04/07/21 08:01 NEEMA [id number]) Nutrition Notes Need for Assessment generated from: LOS Initial or Follow up Brief Note Subjective/Other Information Screen for LOS, pt eating 100% of meals. Nutrition Intervention Revisit per MD consult or patient Sign Off request:
[2021-04-07] MEDS: traZODone 50 MG TAB PO SCH (21:12)
[2021-04-08] MEDS: DIVALPROEX DR 500 MG TAB PO SCH ×2 (09:28→21:18)
[2021-04-08] MEDS: PANTOPRAZOLE 40 MG TAB PO SCH (09:28)
[2021-04-08] MEDS: OMEGA-3 FATTY ACIDS/FISH OIL 1 GRAM CAP PO SCH ×2 (09:28→21:18)
--- NOTE | 2021-04-08 09:37 | Progress Note ---
Subjective Date of service: 04/08/21 Principal diagnosis: schizophrenia Subjective Comment: The patient was seen today. She is lying in bed. She initially just stares at me blankly. I call her name again then she starts talking. The patient denies SI/HI or hallucinations. Nursing staff states the patient is selectively mute and doesn't interact with staff. Reason for continued inpatient treatment: The patient is mute, doesn't interact with staff, withdrawn and appears to have some underlying depression. REVIEW OF SYSTEMS Constitutional: Negative for weight loss ENT: Negative for stridor Respiratory: Negative for cough or hemoptysis All other systems reviewed and are negative MENTAL STATUS EXAMINATION General Appearance and Behavior: Age appropriate, wearing appropriate clothes, cooperative, polite with questioning, fair eye contact, calm Cooperation: cooperative Psychomotor Behavior: Psychomotor normal Mood: "alright" Affect and affective range: congruent with stated mood Thought Process: Withdrawn Thought Content: Not SI Speech: Normal tone and pace Suicidal Ideation: Denies Homicidal Ideation: Denies Hallucination: Denies Delusions: None elicited Impulse Control: Limited Insight and Judgment: Limited Memory: Normal Attention: Normal Orientation: Alert and oriented Diagnoses: Schizoaffective Disorder Treatment Plan Patient admitted for inpatient psychiatric evaluation, medication adjustment and close monitoring The patient's behavior, mood, sleep and appetite will be closely monitored. Patient enrolled in individual and group therapeutic sessions and encouraged to attend. Patient provided with a safe and structured environment. Patient's physical health needs will be addressed by the Hospitalist. Hospitalist Consulted Labs including CBC, CMP, Lipid profile and Hemoglobin A1C levels ordered for baseline reference Social Assessment will be completed and the Range Ecologist will work with patient and family to ensure a suitable and safe disposition Medication adjustment will be made as clinically indicated Start Zoloft 25mg po daily Usual Wellness [place]/Preservation: - Start Trazodone 50 mg po QHS & 50 mg po QHS PRN between 10 PM & 2 AM for insomnia - Start Melatonin 5 mg po QHS to promote circadian rhythm The patient agreed on the treatment plan, understood the risk, benefit, alternative treatment, potential consequence of no treatment, and gave informed consent. Estimated days: 6 Post hospital care: primary care provider, psychiatric provider Case staffed with Dr. Schmid Medications and Allergies Allergies Allergy/AdvReac Type Severity Reaction Status Date / Time azithromycin Allergy Unknown Verified 04/03/21 10:28 diphenhydramine Allergy Unknown Verified 04/03/21 10:28 [From Benadryl] haloperidol [From Haldol] Allergy Unknown Verified 04/03/21 10:28 Penicillins Allergy Unknown Verified 04/03/21 10:28 sulfamethoxazole Allergy Unknown Verified 04/03/21 10:28 trimethoprim Allergy Unknown Verified 04/03/21 10:28 Home Medications Medication Instructions Recorded Confirmed Last Taken Type ALPRAZolam [Xanax TAB] 1 mg PO TID PRN 10/18/20 03/31/21 Unknown History Albuterol Sulfate [Proair 90 mcg IH Q4HR 10/18/20 03/31/21 Unknown History Digihaler] Cyclobenzaprine [Flexeril 10 MG 10 mg PO TID PRN 10/18/20 03/31/21 Unknown History TAB] Ketorolac [Toradol] 10 mg PO Q6HR PRN 10/18/20 03/31/21 Unknown History Naproxen 500 mg PO BID 10/18/20 03/31/21 Unknown History Omeprazole 40 mg PO DAILY 10/18/20 03/31/[address] [Phoebe Maloney] 125 mg PO BID #60 tablet 10/25/20 03/31/21 Unknown Rx Melatonin [Melatonin 5MG TAB] 5 mg PO QHS PRN #30 tablet 10/25/20 03/31/21 Unknown Rx Nicotine [Habitrol] 14 mg TD QDAY #30 patch 10/25/20 03/31/21 Unknown Rx [place]-3 Fatty Acids/Fish Oil [Fish 2,000 mg PO BID #120 capsule 10/25/20 03/31/21 Unknown Rx Oil] traZODone [Desyrel] 50 mg PO QHS #30 tablet 10/25/20 03/31/21 Unknown Rx OLANzapine [ZyPREXA] 10 mg PO BID 03/31/21 03/31/21 Unknown History hydrOXYzine PAMOATE [Vistaril] 50 mg PO BID 03/31/21 03/31/21 Unknown History Active Meds: Active Medications Divalproex Sodium (Divalproex Dr 500 Mg Tab) 500 mg PO BID [facility] Last Admin: 04/08/21 09:28 Dose: 500 mg Documented by: Fish Oil ([place]-3 Fatty Acids/Fish Oil 1 Gram Cap) 2,000 mg PO BID [facility] Last Admin: 04/08/21 09:28 Dose: 2,000 mg Documented by: Hydroxyzine Pamoate (Hydroxyzine Pamoate 50 Mg Cap) 50 mg PO BID [facility] Last Admin: 04/08/21 09:28 Dose: 50 mg Documented by: Melatonin (Melatonin 5 Mg Tab) 5 mg PO QHS PRN PRN Reason: Sleep Last Admin: 04/05/21 21:16 Dose: 5 mg Documented by: Olanzapine (Olanzapine 10 Mg Tab) 10 mg PO BID [facility] Last Admin: 04/08/21 09:28 Dose: 10 mg Documented by: Pantoprazole Sodium (Pantoprazole 40 Mg Tab) 40 mg PO DAILY [facility] Last Admin: 04/08/21 09:28 Dose: 40 mg Documented by: Trazodone HCl (Trazodone 50 Mg Tab) 75 mg PO QHS [facility] Last Admin: 04/07/21 21:12 Dose: 75 mg Documented by: Results - Results Labs/Vitals: Laboratory Last Values WBC 5.7 K/mm3 (4.5-11.0) 04/03/21 08:00 RBC 4.97 M/mm3 (3.65-5.03) 04/03/21 08:00 Hgb 15.3 gm/dl (10.1-14.3) H 04/03/21 08:00 Hct 44.1 % (30.3-42.9) H 04/03/21 08:00 MCV 89 fl (79-97) 04/03/21 08:00 MCH 31 pg (28-32) 04/03/21 08:00 MCHC 35 % (30-34) H 04/03/21 08:00 RDW 13.5 % (13.2-15.2) 04/03/21 08:00 Plt Count 241 K/mm3 (140-440) 04/03/21 08:00 Lymph % (Auto) 42.4 % (13.4-35.0) H 04/03/21 08:00 [place] % (Auto) 6.0 % (0.0-7.3) 04/03/21 08:00 Eos % (Auto) 4.0 % (0.0-4.3) 04/03/21 08:00 Baso % (Auto) 0.8 % (0.0-1.8) 04/03/21 08:00 Lymph # (Auto) 2.4 K/mm3 (1.2-5.4) 04/03/21 08:00 [place] # (Auto) 0.3 K/mm3 (0.0-0.8) 04/03/21 08:00 Eos # (Auto) 0.2 K/mm3 (0.0-0.4) 04/03/21 08:00 Baso # (Auto) 0.0 K/mm3 (0.0-0.1) 04/03/21 08:00 Seg Neutrophils % 46.8 % (40.0-70.0) 04/03/21 08:00 Seg Neutrophils # 2.7 K/mm3 (1.8-7.7) 04/03/21 08:00 Sodium 142 mmol/L (137-145) 04/03/21 08:00 Potassium 4.0 mmol/L (3.6-5.0) 04/03/21 08:00 Chloride 105.9 mmol/L (98-107) 04/03/21 08:00 Carbon Dioxide 23 mmol/L (22-30) 04/03/21 08:00 Anion Gap 17 mmol/L 04/03/21 08:00 BUN 17 mg/dL (7-17) 04/03/21 08:00 Creatinine 0.5 mg/dL (0.6-1.2) L 04/03/21 08:00 Estimated GFR > 60 ml/min 04/03/21 08:00 BUN/Creatinine Ratio 34 % 04/03/21 08:00 Glucose 116 mg/dL (65-100) H 04/03/21 08:00 POC Glucose 129 mg/dL (70-105) H 04/01/21 02:11 Calcium 9.2 mg/dL (8.4-10.2) 04/03/21 08:00 Total Bilirubin 0.30 mg/dL (0.1-1.2) 04/03/21 08:00 AST 20 units/L (5-40) 04/03/21 08:00 ALT 19 units/L (7-56) 04/03/21 08:00 Alkaline Phosphatase 105 units/L (35-129) 04/03/21 08:00 Total Protein 6.5 g/dL (6.3-8.2) 04/03/21 08:00 Albumin 3.8 g/dL (3.9-5) L 04/03/21 08:00 Albumin/Globulin Ratio 1.4 % 04/03/21 08:00 Triglycerides 93 mg/dL (2-149) 04/03/21 08:00 Cholesterol 158 mg/dL (50-199) 04/03/21 08:00 LDL Cholesterol Direct 112 mg/dL (50-130) 04/03/21 08:00 HDL Cholesterol 38 mg/dL (40-59) L 04/03/21 08:00 Cholesterol/HDL Ratio 4.15 % 04/03/21 08:00 TSH 1.640 mlU/mL (0.270-4.200) 04/03/21 08:00 Valproic Acid 65.6 ug/mL (50-100) 04/06/21 23:22 Hepatitis A IgM Ab Non-reactive (NonReactive) 04/03/21 08:00 Hep Bs Antigen Non-reactive (Negative) 04/03/21 08:00 Hep B Core IgM Ab Non-reactive (NonReactive) 04/03/21 08:00 Hepatitis C Antibody Reactive (NonReactive) A 04/03/21 08:00 Last Vital Signs Temp 97.5 F L 04/08/21 08:02 Pulse 78 04/08/21 08:02 Resp 18 04/08/21 08:02 BP 100/82 04/08/21 08:02 Pulse Ox 94 04/07/21 19:40
--- NOTE | 2021-04-08 09:44 | Progress Note ---
Assessment and Plan Assessment and plan: -- Asthma Current Visit: Yes Status: Chronic : Albuterol MDI as needed and nebulizer treatments as needed --GERD (gastroesophageal reflux disease) Current Visit: Yes Status: Chronic Continue PPIs --Schizoaffective disorder Current Visit: Yes Status: Chronic Defer to psychiatry --Obesity Current Visit: Yes Status: Chronic Patient needs weight reduction when medically stable -- DVT prophylaxis Current Visit: Yes Status: Acute SCDs while resting Continue current management Closely monitor the patient and adjust the management as needed History Interval history: I have seen and examined the patient at the bedside Patient's chart and medications reviewed Patient is in room very quiet not acknowledging this physician. Not in acute distress. Selectively communicative Vital signs noted Hospitalist Physical - Physical exam Narrative exam: General appearance: Present: no acute distress, well-nourished, selectively communicative. Shrugs shoulders to answer yes or no, mostly no - EENT Eyes: Present: PERRL, EOM intact - Neck Neck: Present: supple, normal ROM - Respiratory Respiratory effort: normal Respiratory: bilateral: diminished, negative: rales, rhonchi, wheezing - Cardiovascular Rhythm: regular Heart Sounds: Present: S1 & S2 - Extremities Extremities: no ischemia, No edema - Abdominal General gastrointestinal: soft, non-tender, non-distended, normal bowel sounds - Integumentary Integumentary: Present: clear, warm - Psychiatric Psychiatric: appropriate mood/affect, cooperative - Neurologic Neurologic: CNII-XII intact, moves all extremities - Constitutional Vitals: Temp Pulse Resp BP Pulse Ox 97.5 F L 78 18 100/82 94 04/08/21 08:02 04/08/21 08:02 04/08/21 08:02 04/08/21 08:02 04/07/21 19:40 General appearance: Present: no acute distress, well-nourished, other (Noncommunicative) Results - Labs CBC & Chem 7: 04/03/21 08:00 04/03/21 08:00 Labs: Laboratory Last Values WBC 5.7 K/mm3 (4.5-11.0) 04/03/21 08:00 RBC 4.97 M/mm3 (3.65-5.03) 04/03/21 08:00 Hgb 15.3 gm/dl (10.1-14.3) H 04/03/21 08:00 Hct 44.1 % (30.3-42.9) H 04/03/21 08:00 MCV 89 fl (79-97) 04/03/21 08:00 MCH 31 pg (28-32) 04/03/21 08:00 MCHC 35 % (30-34) H 04/03/21 08:00 RDW 13.5 % (13.2-15.2) 04/03/21 08:00 Plt Count 241 K/mm3 (140-440) 04/03/21 08:00 Lymph % (Auto) 42.4 % (13.4-35.0) H 04/03/21 08:00 [place] % (Auto) 6.0 % (0.0-7.3) 04/03/21 08:00 Eos % (Auto) 4.0 % (0.0-4.3) 04/03/21 08:00 Baso % (Auto) 0.8 % (0.0-1.8) 04/03/21 08:00 Lymph # (Auto) 2.4 K/mm3 (1.2-5.4) 04/03/21 08:00 [place] # (Auto) 0.3 K/mm3 (0.0-0.8) 04/03/21 08:00 Eos # (Auto) 0.2 K/mm3 (0.0-0.4) 04/03/21 08:00 Baso # (Auto) 0.0 K/mm3 (0.0-0.1) 04/03/21 08:00 Seg Neutrophils % 46.8 % (40.0-70.0) 04/03/21 08:00 Seg Neutrophils # 2.7 K/mm3 (1.8-7.7) 04/03/21 08:00 Sodium 142 mmol/L (137-145) 04/03/21 08:00 Potassium 4.0 mmol/L (3.6-5.0) 04/03/21 08:00 Chloride 105.9 mmol/L (98-107) 04/03/21 08:00 Carbon Dioxide 23 mmol/L (22-30) 04/03/21 08:00 Anion Gap 17 mmol/L 04/03/21 08:00 BUN 17 mg/dL (7-17) 04/03/21 08:00 Creatinine 0.5 mg/dL (0.6-1.2) L 04/03/21 08:00 Estimated GFR > 60 ml/min 04/03/21 08:00 BUN/Creatinine Ratio 34 % 04/03/21 08:00 Glucose 116 mg/dL (65-100) H 04/03/21 08:00 POC Glucose 129 mg/dL (70-105) H 04/01/21 02:11 Calcium 9.2 mg/dL (8.4-10.2) 04/03/21 08:00 Total Bilirubin 0.30 mg/dL (0.1-1.2) 04/03/21 08:00 AST 20 units/L (5-40) 04/03/21 08:00 ALT 19 units/L (7-56) 04/03/21 08:00 Alkaline Phosphatase 105 units/L (35-129) 04/03/21 08:00 Total Protein 6.5 g/dL (6.3-8.2) 04/03/21 08:00 Albumin 3.8 g/dL (3.9-5) L 04/03/21 08:00 Albumin/Globulin Ratio 1.4 % 04/03/21 08:00 Triglycerides 93 mg/dL (2-149) 04/03/21 08:00 Cholesterol 158 mg/dL (50-199) 04/03/21 08:00 LDL Cholesterol Direct 112 mg/dL (50-130) 04/03/21 08:00 HDL Cholesterol 38 mg/dL (40-59) L 04/03/21 08:00 Cholesterol/HDL Ratio 4.15 % 04/03/21 08:00 TSH 1.640 mlU/mL (0.270-4.200) 04/03/21 08:00 Valproic Acid 65.6 ug/mL (50-100) 04/06/21 23:22 Hepatitis A IgM Ab Non-reactive (NonReactive) 04/03/21 08:00 Hep Bs Antigen Non-reactive (Negative) 04/03/21 08:00 Hep B Core IgM Ab Non-reactive (NonReactive) 04/03/21 08:00 Hepatitis C Antibody Reactive (NonReactive) A 04/03/21 08:00 [place]/IV: Voiding Method Toilet Active Medications - Current Medications Current Medications: Generic Name Dose Route Start Last Admin Trade Name Freq PRN Reason Stop Dose Admin Divalproex Sodium 500 mg 04/02/21 10:00 04/08/21 09:[address] 500 Mg Tab PO 500 mg BID CHARLETTE Administration Fish Oil 2,000 mg 04/01/21 10:00 04/08/21 09:28 [place]-3 Fatty Acids/Fish Oil 1 Gram Cap PO 2,000 mg BID [place]E Administration Hydroxyzine Pamoate 50 mg 04/01/21 10:00 04/08/21 09:28 Hydroxyzine Pamoate 50 Mg Cap PO 50 mg BID [place] Administration Melatonin 5 mg 04/01/21 22:00 04/05/21 21:16 Melatonin 5 Mg Tab PO 5 mg QHS PRN Administration Sleep Olanzapine 10 mg 04/01/21 10:00 04/08/21 09:28 Olanzapine 10 Mg Tab PO 10 mg BID CHAR[place]TTE Administration Pantoprazole Sodium 40 mg 04/01/21 10:00 04/08/21 09:28 Pantoprazole 40 Mg Tab PO 40 mg DAILY [facility]E Administration Sertraline HCl 25 mg 04/08/21 10:00 Sertraline 25 Mg Tab PO QDAY CHARLETTE Trazodone HCl 75 mg 04/07/21 22:00 04/07/21 21:12 Trazodone 50 Mg Tab PO 75 mg QHS [place]TTE Administration Nutrition/Malnutrition Assess - Dietary Evaluation Nutrition/Malnutrition Findings: Nutrition Notes Start: 04/07/21 08:01 Freq: Status: Active Protocol: Document 04/07/21 08:01 NEEMA (Rec: 04/07/21 08:01 NEEMA [id number]) Nutrition Notes Need for Assessment generated from: LOS Initial or Follow up Brief Note Subjective/Other Information Screen for LOS, pt eating 100% of meals. Nutrition Intervention Revisit per MD consult or patient Sign Off request:
[2021-04-08] MEDS: SERTRALINE 25 MG TAB PO SCH (11:00)
[2021-04-08] MEDS: traZODone 50 MG TAB PO SCH (21:18)
[2021-04-09] MEDS: PANTOPRAZOLE 40 MG TAB PO SCH (09:15)
[2021-04-09] MEDS: DIVALPROEX DR 500 MG TAB PO SCH ×2 (09:15→21:32)
[2021-04-09] MEDS: SERTRALINE 25 MG TAB PO SCH (09:15)
[2021-04-09] MEDS: OMEGA-3 FATTY ACIDS/FISH OIL 1 GRAM CAP PO SCH ×2 (09:15→21:32)
--- NOTE | 2021-04-09 10:19 | Progress Note ---
Subjective Date of service: 04/09/21 Principal diagnosis: schizophrenia Subjective Comment: The patient was seen today. She is lying in bed awake. She is more talkative today. She denies SI/HI. She also denies hallucinations of any kind. The patient asked was she going home and where she was going. She says she slept well. Reason for continued inpatient treatment: The patient is mute at times, doesn't interact with staff, withdrawn and appears to have some underlying depression. REVIEW OF SYSTEMS Constitutional: Negative for weight loss ENT: Negative for stridor Respiratory: Negative for cough or hemoptysis All other systems reviewed and are negative MENTAL STATUS EXAMINATION General Appearance and Behavior: Age appropriate, wearing appropriate clothes, cooperative, polite with questioning, fair eye contact, calm Cooperation: cooperative Psychomotor Behavior: Psychomotor normal Mood: "alright" Affect and affective range: congruent with stated mood Thought Process: Withdrawn Thought Content: Not SI Speech: Normal tone and pace Suicidal Ideation: Denies Homicidal Ideation: Denies Hallucination: Denies Delusions: None elicited Impulse Control: Limited Insight and Judgment: Limited Memory: Normal Attention: Normal Orientation: Alert and oriented Diagnoses: Schizoaffective Disorder Treatment Plan Patient admitted for inpatient psychiatric evaluation, medication adjustment and close monitoring The patient's behavior, mood, sleep and appetite will be closely monitored. Patient enrolled in individual and group therapeutic sessions and encouraged to attend. Patient provided with a safe and structured environment. Patient's physical health needs will be addressed by the Hospitalist. Hospitalist Consulted Labs including CBC, CMP, Lipid profile and Hemoglobin A1C levels ordered for baseline reference Social Assessment will be completed and the Corporate Tutor will work with patient and family to ensure a suitable and safe disposition Medication adjustment will be made as clinically indicated Continue Zoloft 25mg po daily Usual Wellness [place]/Preservation: - Start Trazodone 50 mg po QHS & 50 mg po QHS PRN between 10 PM & 2 AM for insomnia - Start Melatonin 5 mg po QHS to promote circadian rhythm The patient agreed on the treatment plan, understood the risk, benefit, alternative treatment, potential consequence of no treatment, and gave informed consent. Estimated days: 6 Post hospital care: primary care provider, psychiatric provider Case staffed with Dr. Schmid Medications and Allergies Allergies Allergy/AdvReac Type Severity Reaction Status Date / Time azithromycin Allergy Unknown Verified 04/03/21 10:28 diphenhydramine Allergy Unknown Verified 04/03/21 10:28 [From Benadryl] haloperidol [From Haldol] Allergy Unknown Verified 04/03/21 10:28 Penicillins Allergy Unknown Verified 04/03/21 10:28 sulfamethoxazole Allergy Unknown Verified 04/03/21 10:28 trimethoprim Allergy Unknown Verified 04/03/21 10:28 Home Medications Medication Instructions Recorded Confirmed Last Taken Type ALPRAZolam [Xanax TAB] 1 mg PO TID PRN 10/18/20 03/31/21 Unknown History Albuterol Sulfate [Proair 90 mcg IH Q4HR 10/18/20 03/31/21 Unknown History Digihaler] Cyclobenzaprine [Flexeril 10 MG 10 mg PO TID PRN 10/18/20 03/31/21 Unknown History TAB] Ketorolac [Toradol] 10 mg PO Q6HR PRN 10/18/20 03/31/21 Unknown History Naproxen 500 mg PO BID 10/18/20 03/31/21 Unknown History Omeprazole 40 mg PO DAILY 10/18/20 03/31/[address] [Phoebe Maloney] 125 mg PO BID #60 tablet 10/25/20 03/31/21 Unknown Rx Melatonin [Melatonin 5MG TAB] 5 mg PO QHS PRN #30 tablet 10/25/20 03/31/21 Unknown Rx Nicotine [Habitrol] 14 mg TD QDAY #30 patch 10/25/20 03/31/21 Unknown Rx [place]-3 Fatty Acids/Fish Oil [Fish 2,000 mg PO BID #120 capsule 10/25/20 03/31/21 Unknown Rx Oil] traZODone [Desyrel] 50 mg PO QHS #30 tablet 10/25/20 03/31/21 Unknown Rx OLANzapine [ZyPREXA] 10 mg PO BID 03/31/21 03/31/21 Unknown History hydrOXYzine PAMOATE [Vistaril] 50 mg PO BID 03/31/21 03/31/21 Unknown History Active Meds: Active Medications Divalproex Sodium (Divalproex Dr 500 Mg Tab) 500 mg PO BID [facility] Last Admin: 04/09/21 09:15 Dose: 500 mg Documented by: Fish Oil ([place]-3 Fatty Acids/Fish Oil 1 Gram Cap) 2,000 mg PO BID [facility] Last Admin: 04/09/21 09:15 Dose: 2,000 mg Documented by: Hydroxyzine Pamoate (Hydroxyzine Pamoate 50 Mg Cap) 50 mg PO BID [facility] Last Admin: 04/09/21 09:15 Dose: 50 mg Documented by: Melatonin (Melatonin 5 Mg Tab) 5 mg PO QHS PRN PRN Reason: Sleep Last Admin: 04/05/21 21:16 Dose: 5 mg Documented by: Olanzapine (Olanzapine 10 Mg Tab) 10 mg PO BID [facility] Last Admin: 04/09/21 09:16 Dose: 10 mg Documented by: Pantoprazole Sodium (Pantoprazole 40 Mg Tab) 40 mg PO DAILY [facility] Last Admin: 04/09/21 09:15 Dose: 40 mg Documented by: Sertraline HCl (Sertraline 25 Mg Tab) 25 mg PO QDAY [facility] Last Admin: 04/09/21 09:15 Dose: 25 mg Documented by: Trazodone HCl (Trazodone 50 Mg Tab) 75 mg PO QHS [facility] Last Admin: 04/08/21 21:18 Dose: 75 mg Documented by: Results - Results Labs/Vitals: Laboratory Last Values WBC 5.7 K/mm3 (4.5-11.0) 04/03/21 08:00 RBC 4.97 M/mm3 (3.65-5.03) 04/03/21 08:00 Hgb 15.3 gm/dl (10.1-14.3) H 04/03/21 08:00 Hct 44.1 % (30.3-42.9) H 04/03/21 08:00 MCV 89 fl (79-97) 04/03/21 08:00 MCH 31 pg (28-32) 04/03/21 08:00 MCHC 35 % (30-34) H 04/03/21 08:00 RDW 13.5 % (13.2-15.2) 04/03/21 08:00 Plt Count 241 K/mm3 (140-440) 04/03/21 08:00 Lymph % (Auto) 42.4 % (13.4-35.0) H 04/03/21 08:00 [place] % (Auto) 6.0 % (0.0-7.3) 04/03/21 08:00 Eos % (Auto) 4.0 % (0.0-4.3) 04/03/21 08:00 Baso % (Auto) 0.8 % (0.0-1.8) 04/03/21 08:00 Lymph # (Auto) 2.4 K/mm3 (1.2-5.4) 04/03/21 08:00 [place] # (Auto) 0.3 K/mm3 (0.0-0.8) 04/03/21 08:00 Eos # (Auto) 0.2 K/mm3 (0.0-0.4) 04/03/21 08:00 Baso # (Auto) 0.0 K/mm3 (0.0-0.1) 04/03/21 08:00 Seg Neutrophils % 46.8 % (40.0-70.0) 04/03/21 08:00 Seg Neutrophils # 2.7 K/mm3 (1.8-7.7) 04/03/21 08:00 Sodium 142 mmol/L (137-145) 04/03/21 08:00 Potassium 4.0 mmol/L (3.6-5.0) 04/03/21 08:00 Chloride 105.9 mmol/L (98-107) 04/03/21 08:00 Carbon Dioxide 23 mmol/L (22-30) 04/03/21 08:00 Anion Gap 17 mmol/L 04/03/21 08:00 BUN 17 mg/dL (7-17) 04/03/21 08:00 Creatinine 0.5 mg/dL (0.6-1.2) L 04/03/21 08:00 Estimated GFR > 60 ml/min 04/03/21 08:00 BUN/Creatinine Ratio 34 % 04/03/21 08:00 Glucose 116 mg/dL (65-100) H 04/03/21 08:00 POC Glucose 129 mg/dL (70-105) H 04/01/21 02:11 Calcium 9.2 mg/dL (8.4-10.2) 04/03/21 08:00 Total Bilirubin 0.30 mg/dL (0.1-1.2) 04/03/21 08:00 AST 20 units/L (5-40) 04/03/21 08:00 ALT 19 units/L (7-56) 04/03/21 08:00 Alkaline Phosphatase 105 units/L (35-129) 04/03/21 08:00 Total Protein 6.5 g/dL (6.3-8.2) 04/03/21 08:00 Albumin 3.8 g/dL (3.9-5) L 04/03/21 08:00 Albumin/Globulin Ratio 1.4 % 04/03/21 08:00 Triglycerides 93 mg/dL (2-149) 04/03/21 08:00 Cholesterol 158 mg/dL (50-199) 04/03/21 08:00 LDL Cholesterol Direct 112 mg/dL (50-130) 04/03/21 08:00 HDL Cholesterol 38 mg/dL (40-59) L 04/03/21 08:00 Cholesterol/HDL Ratio 4.15 % 04/03/21 08:00 TSH 1.640 mlU/mL (0.270-4.200) 04/03/21 08:00 Valproic Acid 65.6 ug/mL (50-100) 04/06/21 23:22 Hepatitis A IgM Ab Non-reactive (NonReactive) 04/03/21 08:00 Hep Bs Antigen Non-reactive (Negative) 04/03/21 08:00 Hep B Core IgM Ab Non-reactive (NonReactive) 04/03/21 08:00 Hepatitis C Antibody Reactive (NonReactive) A 04/03/21 08:00 Last Vital Signs Temp 98.5 F 04/09/21 07:16 Pulse 80 04/09/21 07:16 Resp 18 04/09/21 07:16 BP 110/65 04/09/21 07:16 Pulse Ox 98 04/09/21 07:16
[2021-04-09] MEDS: traZODone 50 MG TAB PO SCH (21:32)
[2021-04-10] MEDS: DIVALPROEX DR 500 MG TAB PO SCH ×2 (09:05→21:50)
[2021-04-10] MEDS: PANTOPRAZOLE 40 MG TAB PO SCH (09:05)
[2021-04-10] MEDS: OMEGA-3 FATTY ACIDS/FISH OIL 1 GRAM CAP PO SCH ×2 (09:05→21:50)
[2021-04-10] MEDS: SERTRALINE 25 MG TAB PO SCH (09:05)
--- NOTE | 2021-04-10 09:15 | Progress Note ---
Subjective Date of service: 04/10/21 Principal diagnosis: schizophrenia Subjective Comment: Per ER Note: Last evening the patient spent in the activity room. She interacts with others more every day. Her thoughts have cleared and she is no longer angry and irritable. She is pleasant and cooperative. She denies si/hi/ah/vh. She has a good appetite. She complained last night that the depakote increases her appetite and she does not like that. Patient has history of noncompliance with medications and the fear of weight gain could be a barrier for her. She was medication compliant. The patient was seen today, she is in the dayroom. She appears drowsy. But the patient states, "I'm okay, jut thirsty." She denies any SI/HI. She also denies hallucinations of any kind. Reason for continued inpatient treatment: The patient has improved significantly. Will plan for a safe discharge. REVIEW OF SYSTEMS Constitutional: Negative for weight loss ENT: Negative for stridor Respiratory: Negative for cough or hemoptysis All other systems reviewed and are negative MENTAL STATUS EXAMINATION General Appearance and Behavior: Age appropriate, wearing appropriate clothes, cooperative, polite with questioning, fair eye contact, calm Cooperation: cooperative Psychomotor Behavior: Psychomotor normal Mood: "alright" Affect and affective range: congruent with stated mood Thought Process: Withdrawn Thought Content: Not SI Speech: Normal tone and pace Suicidal Ideation: Denies Homicidal Ideation: Denies Hallucination: Denies Delusions: None elicited Impulse Control: Limited Insight and Judgment: Limited Memory: Normal Attention: Normal Orientation: Alert and oriented Diagnoses: Schizoaffective Disorder Treatment Plan Patient admitted for inpatient psychiatric evaluation, medication adjustment and close monitoring The patient's behavior, mood, sleep and appetite will be closely monitored. Patient enrolled in individual and group therapeutic sessions and encouraged to attend. Patient provided with a safe and structured environment. Patient's physical health needs will be addressed by the Hospitalist. Hospitalist Consulted Labs including CBC, CMP, Lipid profile and Hemoglobin A1C levels ordered for baseline reference Social Assessment will be completed and the Territory Development Manager will work with patient and family to ensure a suitable and safe disposition Medication adjustment will be made as clinically indicated Continue Zoloft 25mg po daily Usual Wellness Jew/Preservation: - Start Trazodone 50 mg po QHS & 50 mg po QHS PRN between 10 PM & 2 AM for insomnia - Start Melatonin 5 mg po QHS to promote circadian rhythm The patient agreed on the treatment plan, understood the risk, benefit, alternative treatment, potential consequence of no treatment, and gave informed consent. Estimated days: 6 Post hospital care: primary care provider, psychiatric provider Case staffed with Dr. Schmid Medications and Allergies Allergies Allergy/AdvReac Type Severity Reaction Status Date / Time azithromycin Allergy Unknown Verified 04/03/21 10:28 diphenhydramine Allergy Unknown Verified 04/03/21 10:28 [From Benadryl] haloperidol [From Haldol] Allergy Unknown Verified 04/03/21 10:28 Penicillins Allergy Unknown Verified 04/03/21 10:28 sulfamethoxazole Allergy Unknown Verified 04/03/21 10:28 trimethoprim Allergy Unknown Verified 04/03/21 10:28 Home Medications Medication Instructions Recorded Confirmed Last Taken Type ALPRAZolam [Xanax TAB] 1 mg PO TID PRN 10/18/20 03/31/21 Unknown History Albuterol Sulfate [Proair 90 mcg IH Q4HR 10/18/20 03/31/21 Unknown History Digihaler] Cyclobenzaprine [Flexeril 10 MG 10 mg PO TID PRN 10/18/20 03/31/21 Unknown History TAB] Ketorolac [Toradol] 10 mg PO Q6HR PRN 10/18/20 03/31/21 Unknown History Naproxen 500 mg PO BID 10/18/20 03/31/21 Unknown History Omeprazole 40 mg PO DAILY 10/18/20 03/31/21 Unknown History Divalproex [Phoebe Maloney] 125 mg PO BID #60 tablet 10/25/20 03/31/21 Unknown Rx Melatonin [Melatonin 5MG TAB] 5 mg PO QHS PRN #30 tablet 10/25/20 03/31/21 Unknown Rx Nicotine [Habitrol] 14 mg TD QDAY #30 patch 10/25/20 03/31/21 Unknown Rx [place]-3 Fatty Acids/Fish Oil [Fish 2,000 mg PO BID #120 capsule 10/25/20 03/31/21 Unknown Rx Oil] traZODone [Desyrel] 50 mg PO QHS #30 tablet 10/25/20 03/31/21 Unknown Rx OLANzapine [ZyPREXA] 10 mg PO BID 03/31/21 03/31/21 Unknown History hydrOXYzine PAMOATE [Vistaril] 50 mg PO BID 03/31/21 03/31/21 Unknown History Active Meds: Active Medications Divalproex Sodium (Divalproex Dr 500 Mg Tab) 500 mg PO BID [facility] Last Admin: 04/10/21 09:05 Dose: 500 mg Documented by: Fish Oil ([place]-3 Fatty Acids/Fish Oil 1 Gram Cap) 2,000 mg PO BID [facility] Last Admin: 04/10/21 09:05 Dose: 2,000 mg Documented by: Hydroxyzine Pamoate (Hydroxyzine Pamoate 50 Mg Cap) 50 mg PO BID [facility] Last Admin: 04/10/21 09:05 Dose: 50 mg Documented by: Melatonin (Melatonin 5 Mg Tab) 5 mg PO QHS PRN PRN Reason: Sleep Last Admin: 04/05/21 21:16 Dose: 5 mg Documented by: Olanzapine (Olanzapine 10 Mg Tab) 10 mg PO BID [facility] Last Admin: 04/10/21 09:05 Dose: 10 mg Documented by: Pantoprazole Sodium (Pantoprazole 40 Mg Tab) 40 mg PO DAILY [facility] Last Admin: 04/10/21 09:05 Dose: 40 mg Documented by: Sertraline HCl (Sertraline 25 Mg Tab) 25 mg PO QDAY [facility] Last Admin: 04/10/21 09:05 Dose: 25 mg Documented by: Trazodone HCl (Trazodone 50 Mg Tab) 75 mg PO QHS [facility] Last Admin: 04/09/21 21:32 Dose: 75 mg Documented by: Results - Results Labs/Vitals: Laboratory Last Values WBC 5.7 K/mm3 (4.5-11.0) 04/03/21 08:00 RBC 4.97 M/mm3 (3.65-5.03) 04/03/21 08:00 Hgb 15.3 gm/dl (10.1-14.3) H 04/03/21 08:00 Hct 44.1 % (30.3-42.9) H 04/03/21 08:00 MCV 89 fl (79-97) 04/03/21 08:00 MCH 31 pg (28-32) 04/03/21 08:00 MCHC 35 % (30-34) H 04/03/21 08:00 RDW 13.5 % (13.2-15.2) 04/03/21 08:00 Plt Count 241 K/mm3 (140-440) 04/03/21 08:00 Lymph % (Auto) 42.4 % (13.4-35.0) H 04/03/21 08:00 Grand % (Auto) 6.0 % (0.0-7.3) 04/03/21 08:00 Eos % (Auto) 4.0 % (0.0-4.3) 04/03/21 08:00 Baso % (Auto) 0.8 % (0.0-1.8) 04/03/21 08:00 Lymph # (Auto) 2.4 K/mm3 (1.2-5.4) 04/03/21 08:00 Grand # (Auto) 0.3 K/mm3 (0.0-0.8) 04/03/21 08:00 Eos # (Auto) 0.2 K/mm3 (0.0-0.4) 04/03/21 08:00 Baso # (Auto) 0.0 K/mm3 (0.0-0.1) 04/03/21 08:00 Seg Neutrophils % 46.8 % (40.0-70.0) 04/03/21 08:00 Seg Neutrophils # 2.7 K/mm3 (1.8-7.7) 04/03/21 08:00 Sodium 142 mmol/L (137-145) 04/03/21 08:00 Potassium 4.0 mmol/L (3.6-5.0) 04/03/21 08:00 Chloride 105.9 mmol/L (98-107) 04/03/21 08:00 Carbon Dioxide 23 mmol/L (22-30) 04/03/21 08:00 Anion Gap 17 mmol/L 04/03/21 08:00 BUN 17 mg/dL (7-17) 04/03/21 08:00 Creatinine 0.5 mg/dL (0.6-1.2) L 04/03/21 08:00 Estimated GFR > 60 ml/min 04/03/21 08:00 BUN/Creatinine Ratio 34 % 04/03/21 08:00 Glucose 116 mg/dL (65-100) H 04/03/21 08:00 POC Glucose 129 mg/dL (70-105) H 04/01/21 02:11 Calcium 9.2 mg/dL (8.4-10.2) 04/03/21 08:00 Total Bilirubin 0.30 mg/dL (0.1-1.2) 04/03/21 08:00 AST 20 units/L (5-40) 04/03/21 08:00 ALT 19 units/L (7-56) 04/03/21 08:00 Alkaline Phosphatase 105 units/L (35-129) 04/03/21 08:00 Total Protein 6.5 g/dL (6.3-8.2) 04/03/21 08:00 Albumin 3.8 g/dL (3.9-5) L 04/03/21 08:00 Albumin/Globulin Ratio 1.4 % 04/03/21 08:00 Triglycerides 93 mg/dL (2-149) 04/03/21 08:00 Cholesterol 158 mg/dL (50-199) 04/03/21 08:00 LDL Cholesterol Direct 112 mg/dL (50-130) 04/03/21 08:00 HDL Cholesterol 38 mg/dL (40-59) L 04/03/21 08:00 Cholesterol/HDL Ratio 4.15 % 04/03/21 08:00 TSH 1.640 mlU/mL (0.270-4.200) 04/03/21 08:00 Valproic Acid 65.6 ug/mL (50-100) 04/06/21 23:22 Hepatitis A IgM Ab Non-reactive (NonReactive) 04/03/21 08:00 Hep Bs Antigen Non-reactive (Negative) 04/03/21 08:00 Hep B Core IgM Ab Non-reactive (NonReactive) 04/03/21 08:00 Hepatitis C Antibody Reactive (NonReactive) A 04/03/21 08:00 Last Vital Signs Temp 97.4 F L 04/10/21 07:22 Pulse 89 04/09/21 21:00 Resp 18 04/10/21 07:22 BP 97/68 04/10/21 07:22 Pulse Ox 94 04/09/21 21:00
[2021-04-10] MEDS: traZODone 50 MG TAB PO SCH (21:50)
--- NOTE | 2021-04-11 09:50 | Progress Note ---
Subjective Date of service: 04/11/21 Principal diagnosis: schizophrenia Subjective Comment: The patient was seen today, she is calm, cooperative and more talkative. She denies SI/HI. She also denies hallucinations of any kind. She says she slept well. She says her appetite is good. Spoke with the and informed her the patient is ready for discharge. She says she found out the patient is homeless and will have to set up resources for her. Reason for continued inpatient treatment: The patient has improved significantly. She is clear for discharge. Will d/c once the has secure a safe place to discharge. REVIEW OF SYSTEMS Constitutional: Negative for weight loss ENT: Negative for stridor Respiratory: Negative for cough or hemoptysis All other systems reviewed and are negative MENTAL STATUS EXAMINATION General Appearance and Behavior: Age appropriate, wearing appropriate clothes, cooperative, polite with questioning, fair eye contact, calm Cooperation: cooperative Psychomotor Behavior: Psychomotor normal Mood: "alright" Affect and affective range: congruent with stated mood Thought Process: Withdrawn Thought Content: Not SI Speech: Normal tone and pace Suicidal Ideation: Denies Homicidal Ideation: Denies Hallucination: Denies Delusions: None elicited Impulse Control: Limited Insight and Judgment: Limited Memory: Normal Attention: Normal Orientation: Alert and oriented Diagnoses: Schizoaffective Disorder Treatment Plan Patient admitted for inpatient psychiatric evaluation, medication adjustment and close monitoring The patient's behavior, mood, sleep and appetite will be closely monitored. Patient enrolled in individual and group therapeutic sessions and encouraged to attend. Patient provided with a safe and structured environment. Patient's physical health needs will be addressed by the Hospitalist. Hospitalist Consulted Labs including CBC, CMP, Lipid profile and Hemoglobin A1C levels ordered for baseline reference Social Assessment will be completed and the Cartridge Assembling Machine Adjuster will work with patient and family to ensure a suitable and safe disposition Medication adjustment will be made as clinically indicated No changes made today. Usual Wellness Baptism/Preservation: - Start Trazodone 50 mg po QHS & 50 mg po QHS PRN between 10 PM & 2 AM for insomnia - Start Melatonin 5 mg po QHS to promote circadian rhythm The patient agreed on the treatment plan, understood the risk, benefit, alternative treatment, potential consequence of no treatment, and gave informed consent. Estimated days: 6 Post hospital care: primary care provider, psychiatric provider Case staffed with Dr. Schmid Medications and Allergies Allergies Allergy/AdvReac Type Severity Reaction Status Date / Time azithromycin Allergy Unknown Verified 04/03/21 10:28 diphenhydramine Allergy Unknown Verified 04/03/21 10:28 [From Benadryl] haloperidol [From Haldol] Allergy Unknown Verified 04/03/21 10:28 Penicillins Allergy Unknown Verified 04/03/21 10:28 sulfamethoxazole Allergy Unknown Verified 04/03/21 10:28 trimethoprim Allergy Unknown Verified 04/03/21 10:28 Home Medications Medication Instructions Recorded Confirmed Last Taken Type ALPRAZolam [Xanax TAB] 1 mg PO TID PRN 10/18/20 03/31/21 Unknown History Albuterol Sulfate [Proair 90 mcg IH Q4HR 10/18/20 03/31/21 Unknown History Digihaler] Cyclobenzaprine [Flexeril 10 MG 10 mg PO TID PRN 10/18/20 03/31/21 Unknown History TAB] Ketorolac [Toradol] 10 mg PO Q6HR PRN 10/18/20 03/31/21 Unknown History Naproxen 500 mg PO BID 10/18/20 03/31/21 Unknown History Omeprazole 40 mg PO DAILY 10/18/20 03/31/21 Unknown History Melatonin [Melatonin 5MG TAB] 5 mg PO QHS PRN #30 tablet 10/25/20 03/31/21 Unknown Rx Nicotine [Habitrol] 14 mg TD QDAY #30 patch 10/25/20 03/31/21 Unknown Rx [place]-3 Fatty Acids/Fish Oil [Fish 2,000 mg PO BID #120 capsule 10/25/20 03/31/21 Unknown Rx Oil] OLANzapine [Zyprexa] 10 mg PO BID 03/31/21 03/31/21 Unknown History hydrOXYzine PAMOATE [Vistaril] 50 mg PO BID 03/31/21 03/31/[address] [Phoebe Maloney] 500 mg PO BID #60 tablet 04/10/21 Unknown Rx Sertraline [Zoloft] 25 mg PO QDAY #30 tablet 04/10/21 Unknown Rx traZODone [Desyrel] 75 mg PO QHS #45 tablet 04/10/21 Unknown Rx Active Meds: Active Medications Divalproex Sodium (Divalproex Dr 500 Mg Tab) 500 mg PO BID [facility] Last Admin: 04/10/21 21:50 Dose: 500 mg Documented by: Fish Oil ([place]-3 Fatty Acids/Fish Oil 1 Gram Cap) 2,000 mg PO BID [facility] Last Admin: 04/10/21 21:50 Dose: 2,000 mg Documented by: Hydroxyzine Pamoate (Hydroxyzine Pamoate 50 Mg Cap) 50 mg PO BID [facility] Last Admin: 04/10/21 21:50 Dose: 50 mg Documented by: Melatonin (Melatonin 5 Mg Tab) 5 mg PO QHS PRN PRN Reason: Sleep Last Admin: 04/05/21 21:16 Dose: 5 mg Documented by: Olanzapine (Olanzapine 10 Mg Tab) 10 mg PO BID [facility] Last Admin: 04/10/21 21:50 Dose: 10 mg Documented by: Pantoprazole Sodium (Pantoprazole 40 Mg Tab) 40 mg PO DAILY [facility] Last Admin: 04/10/21 09:05 Dose: 40 mg Documented by: Sertraline HCl (Sertraline 25 Mg Tab) 25 mg PO QDAY [facility] Last Admin: 04/10/21 09:05 Dose: 25 mg Documented by: Trazodone HCl (Trazodone 50 Mg Tab) 75 mg PO QHS [facility] Last Admin: 04/10/21 21:50 Dose: 75 mg Documented by: Results - Results Labs/Vitals: Laboratory Last Values WBC 5.7 K/mm3 (4.5-11.0) 04/03/21 08:00 RBC 4.97 M/mm3 (3.65-5.03) 04/03/21 08:00 Hgb 15.3 gm/dl (10.1-14.3) H 04/03/21 08:00 Hct 44.1 % (30.3-42.9) H 04/03/21 08:00 MCV 89 fl (79-97) 04/03/21 08:00 MCH 31 pg (28-32) 04/03/21 08:00 MCHC 35 % (30-34) H 04/03/21 08:00 RDW 13.5 % (13.2-15.2) 04/03/21 08:00 Plt Count 241 K/mm3 (140-440) 04/03/21 08:00 Lymph % (Auto) 42.4 % (13.4-35.0) H 04/03/21 08:00 [place] % (Auto) 6.0 % (0.0-7.3) 04/03/21 08:00 Eos % (Auto) 4.0 % (0.0-4.3) 04/03/21 08:00 Baso % (Auto) 0.8 % (0.0-1.8) 04/03/21 08:00 Lymph # (Auto) 2.4 K/mm3 (1.2-5.4) 04/03/21 08:00 [place] # (Auto) 0.3 K/mm3 (0.0-0.8) 04/03/21 08:00 Eos # (Auto) 0.2 K/mm3 (0.0-0.4) 04/03/21 08:00 Baso # (Auto) 0.0 K/mm3 (0.0-0.1) 04/03/21 08:00 Seg Neutrophils % 46.8 % (40.0-70.0) 04/03/21 08:00 Seg Neutrophils # 2.7 K/mm3 (1.8-7.7) 04/03/21 08:00 Sodium 142 mmol/L (137-145) 04/03/21 08:00 Potassium 4.0 mmol/L (3.6-5.0) 04/03/21 08:00 Chloride 105.9 mmol/L (98-107) 04/03/21 08:00 Carbon Dioxide 23 mmol/L (22-30) 04/03/21 08:00 Anion Gap 17 mmol/L 04/03/21 08:00 BUN 17 mg/dL (7-17) 04/03/21 08:00 Creatinine 0.5 mg/dL (0.6-1.2) L 04/03/21 08:00 Estimated GFR > 60 ml/min 04/03/21 08:00 BUN/Creatinine Ratio 34 % 04/03/21 08:00 Glucose 116 mg/dL (65-100) H 04/03/21 08:00 POC Glucose 129 mg/dL (70-105) H 04/01/21 02:11 Calcium 9.2 mg/dL (8.4-10.2) 04/03/21 08:00 Total Bilirubin 0.30 mg/dL (0.1-1.2) 04/03/21 08:00 AST 20 units/L (5-40) 04/03/21 08:00 ALT 19 units/L (7-56) 04/03/21 08:00 Alkaline Phosphatase 105 units/L (35-129) 04/03/21 08:00 Total Protein 6.5 g/dL (6.3-8.2) 04/03/21 08:00 Albumin 3.8 g/dL (3.9-5) L 04/03/21 08:00 Albumin/Globulin Ratio 1.4 % 04/03/21 08:00 Triglycerides 93 mg/dL (2-149) 04/03/21 08:00 Cholesterol 158 mg/dL (50-199) 04/03/21 08:00 LDL Cholesterol Direct 112 mg/dL (50-130) 04/03/21 08:00 HDL Cholesterol 38 mg/dL (40-59) L 04/03/21 08:00 Cholesterol/HDL Ratio 4.15 % 04/03/21 08:00 TSH 1.640 mlU/mL (0.270-4.200) 04/03/21 08:00 Valproic Acid 65.6 ug/mL (50-100) 04/06/21 23:22 Hepatitis A IgM Ab Non-reactive (NonReactive) 04/03/21 08:00 Hep Bs Antigen Non-reactive (Negative) 04/03/21 08:00 Hep B Core IgM Ab Non-reactive (NonReactive) 04/03/21 08:00 Hepatitis C Antibody Reactive (NonReactive) A 04/03/21 08:00 Last Vital Signs Temp 98.4 F 04/11/21 07:55 Pulse 78 04/11/21 07:55 Resp 18 04/11/21 07:55 BP 107/78 04/11/21 07:55 Pulse Ox 97 04/11/21 07:55
[2021-04-11] MEDS: PANTOPRAZOLE 40 MG TAB PO SCH (09:52)
[2021-04-11] MEDS: OMEGA-3 FATTY ACIDS/FISH OIL 1 GRAM CAP PO SCH ×2 (09:52→21:30)
[2021-04-11] MEDS: DIVALPROEX DR 500 MG TAB PO SCH ×2 (09:52→21:31)
[2021-04-11] MEDS: SERTRALINE 25 MG TAB PO SCH (09:52)
[2021-04-11] MEDS: traZODone 50 MG TAB PO SCH (21:31)
[2021-04-12] MEDS: PANTOPRAZOLE 40 MG TAB PO SCH (09:13)
[2021-04-12] MEDS: OMEGA-3 FATTY ACIDS/FISH OIL 1 GRAM CAP PO SCH (09:13)
[2021-04-12] MEDS: DIVALPROEX DR 500 MG TAB PO SCH (09:14)
[2021-04-12] MEDS: SERTRALINE 25 MG TAB PO SCH (09:14)
--- NOTE | 2021-04-12 09:31 | Discharge Summary ---
Providers - Providers Date of Admission: 04/01/21 01:57 Date of discharge: 04/12/21 Attending physician: FARAZ FRIED MD 03/31/21 19:01 Consult to Physician [CONS] Routine Comment: Consulting Provider: JULIA BAZAN Physician Instructions: Reason For Exam: manage medical condition Primary care physician: STRAW HAT BRUSHER Hospitalization Reason for admission: psychosis Admitting Diagnosis: F25.9 - SCHIZOAFFECTIVE DISORDER, UNSPECIFIED Hospital course: The patient was provided inpatient psychiatric treatment with safe and supportive care, medication adjustment, adverse effect monitoring, medical evaluations, medical treatments, assessment and psycho-education. The patient's mood, cognition, behavior, moral support are improved and stabilized. St the time of discharge, the patient had no endangering behavior and no debilitating adverse effects. The patient agreed on potential consequences of no treatment and gave informed consent. 04/02/2021: The patient was seen in the activity room eating breakfast. In my interview with the patient, she continues to be mute but nods yes or no when asked questions. She denies any current suicidal/homicidal ideation and denies hallucinations. Per nurse, "Pt received relaxing in the bedroom. Pt is mute and not responding to questions. No sign of pain and no acute distress observed." Treatment plan: Increase Depakote to 500MG po bid. 04/03/2021: The patient was seen resting in bed. Patient continues to be mute communicates via nods and when asked to come to breakfast she got off her bed and walked towards the activity room for breakfast. The nods ok for mood . She nods good for sleep and appetite. She denies any current suicidal ideation and denies hallucinations. Per nurse, "Patient continues to be isolative, and selectively mute. When asked how she was feeling and did she have any thoughts of harming herself or others, patient did not answer but stared at nurse blinking as if in response to questions being asked. Patient was compliant with medication except Fish oil which she refused. Patient did verbaly respond when asked if she would like a sandwich to which she replied just some crackers. Patient remains in room." 04/04/2021: The patient was seen in the activity room eating breakfast, she continues to be isolative but was verbal today. She reports mood as "good." The patient states sleep and appetite as good. she denies any current suicidal/h omicidal thoughts and denies hallucinations. Per nurse, " pt refused all bedtime medication, she said it makes her sick, good appetite, no distress noted, will continue to monitor for safety. " No changes made today. 04/05/2021: The patient was seen in the activity eating breakfast, she is calm with good eye contact, nonverbal but nods to questions. She nods to sleep and a ppetite as good. She denies any current suicidal/homicidal ideation and denies hallucinations. Per nurse, "Pt in day room sitting quietly with no interaction with peers. Pt is mute responding to questions with nodding or shaking of head. No acute distress observed." No changes made today. 04/06/2021: The patient was seen resting in bed quietly. The patient is verbal today, she reports mood as " alright" she states she feel better. She reports sleep and appetite ad good. The patient denies any current suicidal/homicidal ideation and denies hallucinations. Per nurse, "Last evening the patient divided her time between the activity room and her room. She presents as irritable. She also presents as mildly confused. Her appetite is fair. She was irritable when this sports book writer started explaining her medications to her. She held them for a moment before swallowing all of them. She refused to become engaged in conversation. Overnight the patient rested quietly. She slept 8 hours." Per nurse, patient refused valproic acid draw this morning. No changes made today. 04/07 The patient was seen today. She says she did not sleep good. She then stares intensely at me for a minute. She denies SI/HI or hallucinations of any kind. Nursing staff at times the patient is mute. Will adjust medications to improve sleep pattern. 04/08 The patient was seen today. She is lying in bed. She initially just stares at me blankly. I call her name again then she starts talking. The patient denies SI/HI or hallucinations. Nursing staff states the patient is selectively mute and doesn't interact with staff. 04/10 The patient was seen today, she is in the dayroom. She appears drowsy. But the patient states, "I'm okay, jut thirsty." She denies any SI/HI. She also denies hallucinations of any kind. 04/11 The patient was seen today, she is calm, cooperative and more talkative. S he denies SI/HI. She also denies hallucinations of any kind. She says she slept well. She says her appetite is good. Spoke with the SW and informed her the patient is ready for discharge. She says she found out the patient is homeless and will have to set up resources for her. Disposition: TO HOME OR SELFCARE Time spent for discharge: 39 Allergies/Adverse Reactions: Allergies azithromycin Allergy (Verified 04/03/21 10:28) Unknown diphenhydramine [From Benadryl] Allergy (Verified 04/03/21 10:28) Unknown haloperidol [From Haldol] Allergy (Verified 04/03/21 10:) Unknown Penicillins Allergy (Verified 04/03/21 10:28) Unknown sulfamethoxazole Allergy (Verified 04/03/21 10:28) Unknown trimethoprim Allergy (Verified 04/03/21 10:) Unknown Pt. states that she is allergic to the meds above, but could not tell what type of reaction she gets. Vital Signs: Last Vital Signs Temp 98.6 F 04/11/21 18:59 Pulse 72 04/12/21 07:51 Resp 18 04/11/21 18:59 BP 96/57 04/12/21 07:51 Pulse Ox 97 04/12/21 07:51 Last Lab: Laboratory Last Values WBC 5.7 K/mm3 (4.5-11.0) 04/03/21 08:00 RBC 4.97 M/mm3 (3.65-5.03) 04/03/21 08:00 Hgb 15.3 gm/dl (10.1-14.3) H 04/03/21 08:00 Hct 44.1 % (30.3-42.9) H 04/03/21 08:00 MCV 89 fl (79-97) 04/03/21 08:00 MCH 31 pg (28-32) 04/03/21 08:00 MCHC 35 % (30-34) H 04/03/21 08:00 RDW 13.5 % (13.2-15.2) 04/03/21 08:00 Plt Count 241 K/mm3 (140-440) 04/03/21 08:00 Lymph % (Auto) 42.4 % (13.4-35.0) H 04/03/21 08:00 Bibb % (Auto) 6.0 % (0.0-7.3) 04/03/21 08:00 Eos % (Auto) 4.0 % (0.0-4.3) 04/03/21 08:00 Baso % (Auto) 0.8 % (0.0-1.8) 04/03/21 08:00 Lymph # (Auto) 2.4 K/mm3 (1.2-5.4) 04/03/21 08:00 Bibb # (Auto) 0.3 K/mm3 (0.0-0.8) 04/03/21 08:00 Eos # (Auto) 0.2 K/mm3 (0.0-0.4) 04/03/21 08:00 Baso # (Auto) 0.0 K/mm3 (0.0-0.1) 04/03/21 08:00 Seg Neutrophils % 46.8 % (40.0-70.0) 04/03/21 08:00 Seg Neutrophils # 2.7 K/mm3 (1.8-7.7) 04/03/21 08:00 Sodium 142 mmol/L (137-145) 04/03/21 08:00 Potassium 4.0 mmol/L (3.6-5.0) 04/03/21 08:00 Chloride 105.9 mmol/L (98-107) 04/03/21 08:00 Carbon Dioxide 23 mmol/L (22-30) 04/03/21 08:00 Anion Gap 17 mmol/L 04/03/21 08:00 BUN 17 mg/dL (7-17) 04/03/21 08:00 Creatinine 0.5 mg/dL (0.6-1.2) L 04/03/21 08:00 Estimated GFR > 60 ml/min 04/03/21 08:00 BUN/Creatinine Ratio 34 % 04/03/21 08:00 Glucose 116 mg/dL (65-100) H 04/03/21 08:00 POC Glucose 129 mg/dL (70-105) H 04/01/21 02:11 Calcium 9.2 mg/dL (8.4-10.2) 04/03/21 08:00 Total Bilirubin 0.30 mg/dL (0.1-1.2) 04/03/21 08:00 AST 20 units/L (5-40) 04/03/21 08:00 ALT 19 units/L (7-56) 04/03/21 08:00 Alkaline Phosphatase 105 units/L (35-129) 04/03/21 08:00 Total Protein 6.5 g/dL (6.3-8.2) 04/03/21 08:00 Albumin 3.8 g/dL (3.9-5) L 04/03/21 08:00 Albumin/Globulin Ratio 1.4 % 04/03/21 08:00 Triglycerides 93 mg/dL (2-149) 04/03/21 08:00 Cholesterol 158 mg/dL (50-199) 04/03/21 08:00 LDL Cholesterol Direct 112 mg/dL (50-130) 04/03/21 08:00 HDL Cholesterol 38 mg/dL (40-59) L 04/03/21 08:00 Cholesterol/HDL Ratio 4.15 % 04/03/21 08:00 TSH 1.640 mlU/mL (0.270-4.200) 04/03/21 08:00 Valproic Acid 65.6 ug/mL (50-100) 04/06/21 23:22 Hepatitis A IgM Ab Non-reactive (NonReactive) 04/03/21 08:00 Hep Bs Antigen Non-reactive (Negative) 04/03/21 08:00 Hep B Core IgM Ab Non-reactive (NonReactive) 04/03/21 08:00 Hepatitis C Antibody Reactive (NonReactive) A 04/03/21 08:00 Core Measure Documentation - Palliative Care Palliative Care/ Comfort Measures: Not Applicable - Core Measures Any of the following diagnoses?: none Exam - Constitutional Vitals: Temp Pulse Resp BP Pulse Ox 98.6 F 72 18 96/57 97 04/11/21 18:59 04/12/21 07:51 04/11/21 18:59 04/12/21 07:51 04/12/21 07:51 General appearance: Present: no acute distress - EENT Eyes: Present: PERRL, EOM intact ENT: hearing intact, clear oral mucosa - Neck Neck: Present: supple, normal ROM - Respiratory Respiratory effort: normal Plan Activity: advance as tolerated Weight Bearing Status: Weight Bear as Tolerated Care Plan Goals: Maintain good and stable mental health Plan of Treatment: The patient should be compliant with medications, not to use drugs, and not to drink alcohol. The patient understands that if suicidal ideas, homicidal ideas or any endangering feeling arise, the patient should seek assistance including, but not limited to crisis hotline, and emergency room. Assessment: Schizoaffective Disorder Follow up with: PRIMARY CARE, [Primary Care Provider] - 7 Days Prescriptions: traZODone [Desyrel] 75 mg PO QHS #45 tablet Divalproex [Depakote ] 500 mg PO BID #60 tablet Sertraline [Zoloft] 25 mg PO QDAY #30 tablet
[2021-04-12 12:54] VITALS: BP 98/69
== END 2021-04-12 11:55 | disposition home or self-care (01) | DRG 885 ==
LOC: UNDOADMIN 18:11 → 3A 18:11 → 5A 04-01 01:57
PROVIDERS: ADMIT Psychiatry & Neurology Psychiatry; ATTEND Psychiatry & Neurology Psychiatry
DX: F25.1 Schizoaffective disorder, depressive type (principal); K21.9 Gastro-esophageal reflux disease without esophagitis; J44.9 Chronic obstructive pulmonary disease, unspecified; E66.9 Obesity, unspecified; Z88.2 Allergy status to sulfonamides; Z88.0 Allergy status to penicillin; Z88.1 Allergy status to other antibiotic agents; Z88.8 Allergy status to other drugs, medicaments and biological substances; Z79.899 Other long term (current) drug therapy; Z79.51 Long term (current) use of inhaled steroids; Z68.31 Body mass index [BMI] 31.0-31.9, adult
CPT/HCPCS: 36415; 80053; 80061; 80074; 80164; 82962; 84443; 85025; G0378; Q0177